=== PATIENT | female | born 1965 | race Caucasian/White ===

== ENCOUNTER 2016-06-27 20:44 | Inpatient (IN) | payer OTHER ==
[~2016-06-27] VITALS: Ht 167.6 cm; Wt 90.9 kg
[~2016-06-27 20:44] MED LIST: ACET-1311 PO; ALPR-411 PO; ASPEC81 PO; ATOR80TA PO; CLC100X PO; FAMO40TA6 PO; FERR325T51 PO; FLUO20CA35 PO; GABA-112 PO; HYDR-3785 PO; INSDGI SC; INSUINJ14 SC; LIRA18IN SQ; LISI2.5T5 PO; METO50TA17 PO; NRN100 PO; NXM/40 PO; POLY335025 PO
[2016-06-27] MEDS ORDERED: NVLG SQ (21:44)
[2016-06-27] MEDS ORDERED: TPRSR/25 PO (21:44)
[2016-06-27] MEDS ORDERED: INSDGIPEN SQ (21:44)
[2016-06-27] MEDS ORDERED: ASPI81TA28 PO (21:44)
[2016-06-27] MEDS ORDERED: PROCHLORPERAZINE 5 MG/ML 2 ML VIAL IV STA (21:52)
[2016-06-27] MEDS ORDERED: DiphenhydrAMINE HCL 50 MG/ML VIAL IV STA (21:52)
[2016-06-27] MEDS ORDERED: SODIUM CHLORIDE 0.9% 1000ML 1,000 ML IV STA (21:52)
[2016-06-27 22:04] LABS: URINE APPEARANCE CLEAR (CLEAR); URINE BILIRUBIN NEG (NEG); URINE COLOR YELLOW; URINE EPITHELIAL CELL AUTO >30 /lpf (0-5); URINE NITRITE NEG (NEG); URINE SPECIFIC GRAVITY 1.022 (1.000-1.030); UROBILINOGEN NEG (NEG)
[2016-06-27 22:06] LABS: MANUAL MICROSCOPIC REQUIRED? NO; REVIEW REQ? NO
[2016-06-27 22:43] LABS: BASO % 0.6 %; BASO ABS # 0.06 K/uL (0-0.2); COMPLETE YES; EOS % 0.4 %; HEMATOCRIT 38.3 % (37-47); IG% 0.2 %; LYMPH % 28.9 %; LYMPH ABS # 2.71 K/uL (1.2-3.4); MEAN CELL VOLUME 77.7 fL (80-100); MEAN CORPUSCULAR HEMOGLOBIN 25.8 pg (25-34); MEAN CORPUSCULAR HGB CONC 33.2 g/dl (32-36); MEAN PLATELET VOLUME 9.9 fL (7.4-10.4); MONO % 3.8 %; NEUT % 66.1 %; PLATELET COUNT 365 K/uL (130-400); RED BLOOD COUNT 4.93 M/uL (4.2-5.4); WHITE BLOOD COUNT 9.37 K/uL (4.8-10.8)
[2016-06-27 22:55] LABS: PROTHROMBIN TIME (PATIENT) 10.3 SECONDS (9.0-12.0)
--- NOTE | 2016-06-27 22:55 | DIAGNOSTIC IMAGING REPORT ---
HEAD CT NONCONTRAST CT DOSE: 537.48 mGy.cm HISTORY: Headache. TECHNIQUE: Multiaxial CT images of the head were performed without the use of intravenous contrast. Automated exposure control was utilized for this study. Comparison: Head CT 10/14/2014. Findings: The paranasal sinuses and mastoid air cells are clear. The calvarium and skull base are intact. The ventricles and sulci are within normal limits. There is no mass, hematoma, midline shift, or acute infarct. 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 Impression: No significant change compared to the prior study. No acute intracranial abnormality. Electronically signed by: Allan Rojas M.D. 06/27/2016 10:54 PM Dictated Date/Time: 06/27/2016 10:51 PM
[2016-06-27] MEDS ORDERED: FENTANYL CITRATE INJ 50 MCG/1 ML 2 ML VIAL IV STA ×2 (23:00→23:41)
[2016-06-27 23:01] LABS: ALT/SGPT 16 U/L (12-78); AST/SGOT 10 U/L (15-37); BLOOD UREA NITROGEN 16 mg/dl (7-18); BUN/CREATININE RATIO 11.6 (10-20); CALCIUM 8.8 mg/dl (8.5-10.1); CARBON DIOXIDE 26 mmol/L (21-32); CHLORIDE 105 mmol/L (98-107); GLUCOSE 178 mg/dl (70-99); POTASSIUM 3.4 mmol/L (3.5-5.1); SODIUM 142 mmol/L (136-145)
[2016-06-27 23:03] LABS: ALKALINE PHOSPHATASE 130 U/L (45-117)
--- NOTE | 2016-06-27 23:41 | EMERGENCY ROOM VISIT NOTE ---
History Report prepared by Virgil: Katalina Zamarripa Under the Supervision of: Dr. Moise Edward M.D. First contact with patient: 21:09 Chief Complaint: BACK PAIN Stated Complaint: 100.9 FEVER,BACKACHE,VOMITING,SICK History of Present Illness The patient is a 50 year old female who presents to the Emergency Room with complaints of persistent bilateral low back pain that started this afternoon. She rates her pain as a 7/10 and reports it radiates down both of her legs. The pain feels "sharp and constant" and has worsened throughout the day. She reports she was running errands this morning and denies any recent heavy lifting or traumatic injury. The patient states she has experienced kidney infections in the past which have caused similar back pain, but denies ever experiencing pain radiating down her legs before. She denies any history of chronic back pain or previous back surgery. She denies any saddle anesthesia or numbness or tingling in her legs. She denies any loss of bowel or bladder function. She notes she has been urinating more frequently. She denies any dysuria or hematuria. She has been experiencing a low grade fever around 100 degrees for the past day and complains of sinus congestion and the chills. She denies any recent sick contacts. She complains of a headache for the past 3 days. She states the headache is worsened by noise and exposure to light. She denies any history of migraine headaches. The patient also reports she became nauseous and started vomiting earlier today. She denies any chest pain or diarrhea. Source of History: patient Onset: this afternoon Position: back Symptom Intensity: 7/10 Quality: sharp ("sharp and constant") Timing: other (persistent) Associated Symptoms: + chills, + fevers, + headache, + nausea, + urinary symptoms (increased urinary frequency), + vomiting, No chest pain, No diarrhea, No numbness (numbness or tingling in bilateral legs) Review of Systems See HPI for pertinent positives & negatives. A total of 10 systems reviewed and were otherwise negative. Past Medical & Surgical Medical Problems: (1) Benign hypertension (2) Diabetes mellitus type 2 (3) Diabetic autonomic neuropathy associated with type 2 diabetes mellitus (4) Hyperlipidemia Surgical Problems: (1) Hx of BKA Family History Diabetes mellitus Hypertension Social History Smoking Status: Former Smoker Alcohol Use: none Drug Use: none, marijuana Marital Status: single Housing Status: lives with family Occupation Status: employed Current/Historical Medications Scheduled Aspirin (Aspirin Ec), 81 MG PO QPM Atorvastatin Calcium (Lipitor), 80 MG PO HS Docusate Sodium (Colace), 100 MG PO BID Esomeprazole Magnesium (Nexium), 40 MG PO BID Famotidine (Pepcid), 40 MG PO HS Insulin Aspart (Novolog), SQ TIDM Insulin Glargine (Lantus Solostar), 42 UNITS SQ QPM Liraglutide (Victoza), 1.8 MG SQ QAM Lisinopril (Lisinopril), 2.5 MG PO QAM Metoprolol Succinate (Metoprolol Succinate ER), 25 MG PO DAILY Polyethylene Glycol 3350 (Miralax), 17 GM PO DIRECTED Scheduled PRN Acetaminophen (Tylenol), 650 MG PO Q6 PRN for Pain Allergies Coded Allergies: Fluconazole (Unverified Allergy, Severe, HIVES, ITCHING, N/V SHORT OF BREATH, 12/06/14) Latex1 -Allergic Contact Dermititis (Verified Allergy, Unknown, RASH, PAINFUL TO THE TOUCH, 12/06/14) Penicillins (Verified Allergy, Unknown, HAD ROCEPHIN IN PAST, 12/06/14) RASH Hydromorphone (Verified Adverse Reaction, Intermediate, SEVERE HEADACHE, NAUSEA AND VOMITING, 12/06/14) SHORTNESS OF BREATH Morphine (Verified Adverse Reaction, Intermediate, SEVERE N/V, LUNDBERG. 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 PT OK W/ ONE TIME DOSES PRIOR TO PROCEDURES. Doxycycline (Verified Adverse Reaction, Mild, GI UPSET, 12/06/14) Physical Exam Vital Signs Date Time Temp Pulse Resp B/P Pulse Ox O2 Delivery O2 Flow Rate FiO2 06/27/16 23:05 103 06/27/16 23:03 94 Room Air 06/27/16 23:02 37.5 105 22 185/107 94 Room Air 06/27/16 20:54 37.9 122 20 172/98 96 Room Air Physical Exam Constitutional: Vital signs reviewed. Eyes: Pupils are equal round reactive to light. Conjunctiva are noninjected. ENT: Pharynx is clear without erythema or exudate. Mucous membranes are moist. Neck supple without meningeal signs. Respiratory: Clear to auscultation bilaterally. Breath sounds are equal bilaterally. Cardiovascular: Regular rate and rhythm. No rubs or gallops. GI: Soft, nondistended and nontender. Bowel sounds are present. Musculoskeletal: No midline tenderness to the thoracic or lumbosacral spine. No CVA tenderness. Left BKA. Integumentary: No cyanosis. Neurologic: The patient is awake and alert. Cranial nerves II-XII are intact. Motor is 5 out of 5 all extremities. Sensation is intact to light touch all extremities. Normal speech. No pronator drift. Psychiatric: Normal affect. Medical Decision & Procedures ER Provider Diagnostic Interpretation: X-rays interpreted by myself: Acute abdominal series x-rays per my interpretation shows no acute cardiopulmonary process. There is no evidence of free air or bowel obstruction. LS-spine x-rays demonstrate no acute fracture or dislocation. This CT scan was reviewed and interpreted by the radiologist and reviewed by myself. HEAD CT NONCONTRAST CT DOSE: 537.48 mGy.cm HISTORY: Headache. TECHNIQUE: Multiaxial CT images of the head were performed without the use of intravenous contrast. Automated exposure control was utilized for this study. Comparison: Head CT 10/14/2014. Findings: The paranasal sinuses and mastoid air cells are clear. The calvarium and skull base are intact. The ventricles and sulci are within normal limits. There is no mass, hematoma, midline shift, or acute infarct. 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 Impression: No significant change compared to the prior study. No acute intracranial abnormality. Electronically signed by: Allan Rojas M.D. 06/27/2016 10:54 PM Laboratory Results 06/27/16 22:10 Red Blood Count 4.93, Mean Corpuscular Volume 77.7, Mean Corpuscular Hemoglobin 25.8, Mean Corpuscular Hemoglobin Concent 33.2, Mean Platelet Volume 9.9, Neutrophils (%) (Auto) 66.1, Lymphocytes (%) (Auto) 28.9, Monocytes (%) (Auto) 3.8, Eosinophils (%) (Auto) 0.4, Basophils (%) (Auto) 0.6, Neutrophils # (Auto) 6.18, Lymphocytes # (Auto) 2.71, Monocytes # (Auto) 0.36, Eosinophils # (Auto) 0.04, Basophils # (Auto) 0.06 06/27/16 22:10 Test 06/27/16 00:00 06/27/16 22:10 Urine Color YELLOW Urine Appearance CLEAR (CLEAR) Urine pH 6.0 (4.5-7.5) Urine Specific Bentley 1.022 (1.000-1.030) Urine Protein NEG (NEG) Urine Glucose (UA) 1+ (NEG) Urine Ketones NEG (NEG) Urine Occult Blood NEG (NEG) Urine Nitrite NEG (NEG) Urine Bilirubin NEG (NEG) Urine Urobilinogen NEG (NEG) Urine Leukocyte Esterase TRACE (NEG) Urine WBC (Auto) 1-5 /hpf (0-5) Urine RBC (Auto) 0-4 /hpf (0-4) Urine Hyaline Casts (Auto) 1-5 /lpf (0-5) Urine Epithelial Cells (Auto) >30 /lpf (0-5) Urine Bacteria (Auto) NEG (NEG) Influenza Type A Antigen Neg for Influ A (NEG) Influenza Type B Antigen Neg for Influ B (NEG) White Blood Count 9.37 K/uL (4.8-10.8) Red Blood Count 4.93 M/uL (4.2-5.4) Hemoglobin 12.7 g/dL (12.0-16.0) Hematocrit 38.3 % (37-47) Mean Corpuscular Volume 77.7 fL (80-100) Mean Corpuscular Hemoglobin 25.8 pg (25-34) Mean Corpuscular Hemoglobin Concent 33.2 g/dl (32-36) Platelet Count 365 K/uL (130-400) Mean Platelet Volume 9.9 fL (7.4-10.4) Neutrophils (%) (Auto) 66.1 % Lymphocytes (%) (Auto) 28.9 % Monocytes (%) (Auto) 3.8 % Eosinophils (%) (Auto) 0.4 % Basophils (%) (Auto) 0.6 % Neutrophils # (Auto) 6.18 K/uL (1.4-6.5) Lymphocytes # (Auto) 2.71 K/uL (1.2-3.4) Monocytes # (Auto) 0.36 K/uL (0.11-0.59) Eosinophils # (Auto) 0.04 K/uL (0-0.5) Basophils # (Auto) 0.06 K/uL (0-0.2) RDW Standard Deviation 36.4 fL (36.4-46.3) RDW Coefficient of Variation 12.9 % (11.5-14.5) Immature Granulocyte % (Auto) 0.2 % Immature Granulocyte # (Auto) 0.02 K/uL (0.00-0.02) Prothrombin Time 10.3 SECONDS (9.0-12.0) Prothromb Time International Ratio 1.0 (0.9-1.1) Activated Partial Thromboplast Time 26.1 SECONDS (21.0-31.0) Partial Thromboplastin Ratio 1.0 Anion Gap 11.0 mmol/L (3-11) Est Creatinine Clear Calc Drug Dose 53.4 ml/min Estimated GFR () 49.9 Estimated GFR (Non- 43.1 BUN/Creatinine Ratio 11.6 (10-20) Calcium Level 8.8 mg/dl (8.5-10.1) Total Bilirubin 0.3 mg/dl (0.2-1) Direct Bilirubin < 0.1 mg/dl (0-0.2) Aspartate Amino Transf (AST/SGOT) 10 U/L (15-37) Alanine Aminotransferase (ALT/SGPT) 16 U/L (12-78) Alkaline Phosphatase 130 U/L (45-117) Total Protein 6.8 gm/dl (6.4-8.2) Albumin 3.6 gm/dl (3.4-5.0) Laboratory results as reviewed by me. Medications Administered Medications (Trade) Dose Ordered Sig/Nichol Route Start Time Stop Time Status Last Admin Dose Admin Sodium Chloride (Nss 1000ml) 1,000 ml @ 999 mls/hr Q1H1M STAT IV 06/27/16 21:52 06/27/16 22:52 DC 06/27/16 22:17 999 MLS/HR Prochlorperazine Edisylate (Compazine Inj) 10 mg NOW STAT IV 06/27/16 21:52 06/27/16 21:56 DC 06/27/16 22:17 10 MG Diphenhydramine HCl (Benadryl Inj) 50 mg NOW STAT IV 06/27/16 21:52 06/27/16 21:56 DC 06/27/16 22:17 50 MG Fentanyl Citrate (Fentanyl Inj) 50 mcg NOW STAT IV 06/27/16 23:00 06/27/16 23:01 DC 06/27/16 23:10 50 MCG ED Course 2144: The patient was evaluated in room A12. A complete history and physical exam was performed. 2151: Benadryl 50 mg IV, Compazine 10 mg IV, NSS 1000 ml @ 999 mls/hr IV. 2254: I reevaluated the patient. Her pain is not any better. I discussed her CT and blood test results. 2299: Fentanyl Citrate 50 mcg IV. Medical Decision This is a 50-year-old female who presents with fever, back pain and headache. Differential diagnoses considered include lumbar disc disease, radiculopathy, epidural abscess, influenza, pneumonia, sinusitis, migraine headache, meningitis. I did perform a limited focused review of portions of the patient' s old chart on the electronic medical record. The patient has had no recent pertinent visits to this hospital. I did evaluate the patient as noted above. Patient is presenting with low- grade temperatures as well as back pain and headache. The headache she has had for 3 days and describes as a frontal headache over her forehead and face. She has no meningeal signs. She does have chronic pain to her neck. She states that her lower back is what is bothering her the most. I did treat her with IV Compazine and Benadryl. She was also given normal saline IV. She was given fentanyl IV. I did order and review the patient's blood work as noted in the electronic medical record. Her white blood cell count is not elevated. Urinalysis unremarkable. Influenza swab is negative. I did order a CT of the head. I did review the images myself as well as the radiology report as described above. There is no evidence of intracranial hemorrhage. I did reassess patient. She still having pain in her back. Because of her fever was concerned about the possibility of epidural abscess. I did order an MRI of the lumbar spine. She is also given additional dose of fentanyl IV. The patient was signed out to Dr. Fraser. Impression Primary Impression: Low back pain Additional Impressions: Fever Headache Scribe Attestation The scribe's documentation has been prepared under my direct and personally reviewed by me in its entirety. I confirm that the note above accurately reflects all work, treatment, procedures, and medical decision making performed by me. Departure Information Dispostion Still a Patient Referrals Tammy Henao M.D. (PCP) Patient Instructions My [facility] Health Problem Qualifiers Primary Impression: Low back pain Chronicity: acute Back pain laterality: bilateral Sciatica presence: with sciatica Sciatica laterality: bilateral sciatica Qualified Codes: M54.42 - Lumbago with sciatica, left side; M54.41 - Lumbago with sciatica, right side Additional Impressions: Fever Fever type: unspecified Qualified Codes: R50.9 - Fever, unspecified Headache Headache type: unspecified Headache chronicity pattern: acute headache
[2016-06-28] MEDS ORDERED: FENTANYL CITRATE INJ 50 MCG/1 ML 2 ML VIAL IV ONE (01:00)
[2016-06-28] MEDS ORDERED: LORAZEPAM 2 MG/ML 1 ML VIAL IV STA (01:21)
[2016-06-28] MEDS ORDERED: FENTANYL CITRATE INJ 50 MCG/1 ML 2 ML VIAL IV STA (02:25)
[2016-06-28] MEDS ORDERED: OPTIRAY 320 IV PRN (02:30)
[2016-06-28 02:41] LABS: C-REACTIVE PROTEIN < 0.29 mg/dl (0-0.29)
[2016-06-28] MEDS ORDERED: TRAMADOL HCL 50 MG TAB PO PRN (03:30)
[2016-06-28] MEDS ORDERED: ACETAMINOPHEN 325 MG TAB PO PRN (03:30)
[2016-06-28] MEDS ORDERED: GLUCOSE 40% GEL 15 GM TUBE PO PRN (03:45)
[2016-06-28] MEDS ORDERED: GLUCAGON FOR INJ 1 MG VIAL SQ PRN (03:45)
[2016-06-28] MEDS ORDERED: GLUCOSE 10 TABS/TUBE PO PRN (03:45)
[2016-06-28] MEDS ORDERED: ONDANSETRON INJ 2 MG/ML 2 ML VIAL IV PRN (03:45)
[2016-06-28] MEDS ORDERED: DEXTROSE 50% 50 ML SYR IV PRN (03:45)
[2016-06-28 04:10] VITALS: BP 170/99; PULSE 100; TEMP 36.9; O2SAT 96; BMI 32.3
--- NOTE | 2016-06-28 04:13 | EMERGENCY ROOM VISIT NOTE ---
ED Visit Note First contact with patient: 00:02 Pleasant though clearly quite uncomfortable 50 yr old female with multiple med issues including DMII, PVD and previous left lower leg amputation. She arrived earlier in the day with complaints of generalized weakness, low back pain radiating bilateral legs, fevers, and not feeling well. Initially evaluated by Dr Edward with normal work-up but given history concern for epidural abscess thus an MRI lumbar spine had been ordered. Patient given multiple rounds fentanyl/ ativan and still unable to stay still for MRI and eventually refused to have it done further. Appreciated mechanic sound technician coming in from home to attempt this. Given intractable pain seems obvious patient will need to come in for further work-up and evaluation. I did order CRP which fortunately was negative thus the chance of this being epidural abscess quite low. May need anesthesia to be able to get MRI done. She is not septic. Does not have acute neuro deficits of right leg. Did add on PCR flu though without runny nose nor clear URI symptoms seems unlikely. Dr Liraino in to evaluate patient and ordered CT for further evaluation of back as well in addition to planned US studies.
--- NOTE | 2016-06-28 04:24 | History and Physical ---
History & Physical Date & Time of Service: Jun 28, 2016 at 04:08 Chief Complaint: 100.9 Fever,Backache,Vomiting,Sick Primary Care Physician: Tammy Henao M.D. History of Present Illness Source: patient, spouse The patient is a 50-year-old female who presents emergency department with severe bilateral low back pain radiating into left leg and increased phantom limb pain on the left. The patient reports that she had been walking during the day right leg became progressively more painful as pain extended from her low back through her gluteal area into her leg. She reports that when this is happening the past she had kidney infections causing that type of back pain but never had radiation into her legs. She denies any loss of bladder or bowel control. She reports having a temperature around 100F for the past 24-36 hours along with chills. She has not had any recent travel, she does not have any sick contacts. She does report a sinus type headache and congestion over the past 3 days, and reports that the headache is worsened by noise and exposure to light. At the discomfort in her back and legs progressed today she then began to develop nausea and vomiting as well. Past Medical/Surgical History Medical Problems: (1) Benign hypertension Status: Chronic (2) Diabetes mellitus type 2 Status: Chronic (3) Diabetic autonomic neuropathy associated with type 2 diabetes mellitus Status: Chronic (4) Hyperlipidemia Status: Chronic Surgical Problems: (1) Hx of BKA Status: Resolved Family History Diabetes mellitus Hypertension Social History Smoking Status: Former Smoker Alcohol Use: none Drug Use: none, marijuana Marital Status: single Housing status: lives with significant other Occupational Status: employed Immunizations History of Influenza Vaccine: Yes Influenza Vaccine Date: Jan 21, 2011 History of Tetanus Vaccine?: Yes Tetanus Immunization Date: Feb 21, 2010 History of Pneumococcal: Yes Pneumococcal Date: May 24, 2009 History of Hepatitis B Vaccine: No Multi-Drug Resistant Organisms History of MDRO: No Allergies Coded Allergies: Fluconazole (Unverified Allergy, Severe, HIVES, ITCHING, N/V SHORT OF BREATH, 12/06/14) Latex1 -Allergic Contact Dermititis (Verified Allergy, Unknown, RASH, PAINFUL TO THE TOUCH, 12/06/14) Penicillins (Verified Allergy, Unknown, HAD ROCEPHIN IN PAST, 12/06/14) RASH Hydromorphone (Verified Adverse Reaction, Intermediate, SEVERE HEADACHE, NAUSEA AND VOMITING, 12/06/14) SHORTNESS OF BREATH Morphine (Verified Adverse Reaction, Intermediate, SEVERE N/V, LUNDBERG. 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 PT OK W/ ONE TIME DOSES PRIOR TO PROCEDURES. Doxycycline (Verified Adverse Reaction, Mild, GI UPSET, 12/06/14) Home Medications Scheduled Aspirin (Aspirin Ec), 81 MG PO QPM Atorvastatin Calcium (Lipitor), 80 MG PO HS Docusate Sodium (Colace), 100 MG PO BID Esomeprazole Magnesium (Nexium), 40 MG PO BID Famotidine (Pepcid), 40 MG PO HS Insulin Aspart (Novolog), SQ TIDM Insulin Glargine (Lantus Solostar), 42 UNITS SQ QPM Liraglutide (Victoza), 1.8 MG SQ QAM Lisinopril (Lisinopril), 2.5 MG PO QAM Metoprolol Succinate (Metoprolol Succinate ER), 25 MG PO DAILY Polyethylene Glycol 3350 (Miralax), 17 GM PO DIRECTED Scheduled PRN Acetaminophen (Tylenol), 650 MG PO Q6 PRN for Pain Review of Systems The patient denies chest pain, palpitations, shortness of breath, cough, lower extremity swelling, vision change, hearing change, sore throat, abdominal pain, pelvic pain, blood in urine or stool, dysuria, urinary frequency or urgency, memory loss, rash, abnormal bruising or bleeding, focal or generalized weakness , numbness or tingling in arms , neck pain, night sweats, or allergy symptoms. The review of systems is otherwise negative other than for that already noted above, and at least 10 systems have been reviewed. Physical Exam Vital Signs Date Time Temp Pulse Resp B/P Pulse Ox O2 Delivery O2 Flow Rate FiO2 06/28/16 03:58 37.1 95 20 155/100 99 Room Air 06/28/16 01:59 37.0 110 18 171/97 94 Room Air 06/27/16 23:05 103 06/27/16 23:03 94 Room Air 06/27/16 23:02 37.5 105 22 185/107 94 Room Air 06/27/16 20:54 37.9 122 20 172/98 96 Room Air The patient is awake, well-developed and adequately nourished, alert and oriented 3, normocephalic and atraumatic, lying in bed and in no acute distress. HEENT--PERRL, EOMI, mucous membranes and oropharynx dry. Neck--supple, no JVD or bruits, thyroid normal, trachea midline, no adenopathy. Heart--normal S1 and S2, no extra beats, no murmurs, rubs or gallops. Lungs--clear bilaterally with good air movement, no respiratory distress, no accessory muscle use. Abdomen--normal bowel sounds and soft, nontender and nondistended, no hernias or masses, no organomegaly. Extremities--right lower extremity -no cyanosis, clubbing or edema. There is a diminished distal pulse on the right. 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 Dermatologic--normal skin turgor, normal color, warm and dry, no abnormal lymph nodes, no rash. Neurologic--cranial nerves II through XII grossly intact, motor and sensory examination normal. Rheumatologic--exam is limited due to pain. Psychiatric--normal affect. Diagnostics Laboratory Results Results Past 24 Hours Test 06/27/16 22:10 06/28/16 02:11 Range/Units White Blood Count 9.37 4.8-10.8 K/uL Red Blood Count 4.93 4.2-5.4 M/uL Hemoglobin 12.7 12.0-16.0 g/dL Hematocrit 38.3 37-47 % Mean Corpuscular Volume 77.7 80-100 fL Mean Corpuscular Hemoglobin 25.8 25-34 pg Mean Corpuscular Hemoglobin Concent 33.2 32-36 g/dl Platelet Count 365 130-400 K/uL Mean Platelet Volume 9.9 7.4-10.4 fL Neutrophils (%) (Auto) 66.1 % Lymphocytes (%) (Auto) 28.9 % Monocytes (%) (Auto) 3.8 % Eosinophils (%) (Auto) 0.4 % Basophils (%) (Auto) 0.6 % Neutrophils # (Auto) 6.18 1.4-6.5 K/uL Lymphocytes # (Auto) 2.71 1.2-3.4 K/uL Monocytes # (Auto) 0.36 0.11-0.59 K/uL Eosinophils # (Auto) 0.04 0-0.5 K/uL Basophils # (Auto) 0.06 0-0.2 K/uL RDW Standard Deviation 36.4 36.4-46.3 fL RDW Coefficient of Variation 12.9 11.5-14.5 % Immature Granulocyte % (Auto) 0.2 % Immature Granulocyte # (Auto) 0.02 0.00-0.02 K/uL Prothrombin Time 10.3 9.0-12.0 SECONDS Prothromb Time International Ratio 1.0 0.9-1.1 Activated Partial Thromboplast Time 26.1 21.0-31.0 SECONDS Partial Thromboplastin Ratio 1.0 Sodium Level 142 136-145 mmol/L Potassium Level 3.4 3.5-5.1 mmol/L Chloride Level 105 98-107 mmol/L Carbon Dioxide Level 26 21-32 mmol/L Anion Gap 11.0 3-11 mmol/L Blood Urea Nitrogen 16 7-18 mg/dl Creatinine 1.40 0.60-1.20 mg/dl Est Creatinine Clear Calc Drug Dose 53.4 ml/min Estimated GFR () 49.9 Estimated GFR (Non- 43.1 BUN/Creatinine Ratio 11.6 10-20 Random Glucose 178 70-99 mg/dl Calcium Level 8.8 8.5-10.1 mg/dl Total Bilirubin 0.3 0.2-1 mg/dl Direct Bilirubin < 0.1 0-0.2 mg/dl Aspartate Amino Transf (AST/SGOT) 10 15-37 U/L Alanine Aminotransferase (ALT/SGPT) 16 12-78 U/L Alkaline Phosphatase 130 45-117 U/L C-Reactive Protein < 0.29 0-0.29 mg/dl Total Protein 6.8 6.4-8.2 gm/dl Albumin 3.6 3.4-5.0 gm/dl Microbiology Results 06/27/16 Blood Culture, Received Pending 06/27/16 Blood Culture, Received Pending Diagnostic Radiology Patient Name: DAYRON ALMARAZ Unit Number: [id number] Dictated: 06/27/162250 Transcribed: 06/27/162250 [facility] Printed Date/Time: [~ rep prt dt]/[~ rep prt tm] [~ rep ct labl] - [~ rep ct ivnm] [facility] [place] [address] Dictated: 06/27/162250 Transcribed: 06/27/162250 [facility] Printed Date/Time: [~ rep prt dt]/[~ rep prt tm] [~ rep ct labl] - [~ rep ct ivnm] HEAD CT NONCONTRAST CT DOSE: 537.48 mGy.cm HISTORY: Headache. TECHNIQUE: Multiaxial CT images of the head were performed without the use of intravenous contrast. Automated exposure control was utilized for this study. Comparison: Head CT 10/14/2014. Findings: The paranasal sinuses and mastoid air cells are clear. The calvarium and skull base are intact. The ventricles and sulci are within normal limits. There is no mass, hematoma, midline shift, or acute infarct. 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 Impression: No significant change compared to the prior study. No acute intracranial abnormality. Electronically signed by: Allan Rojas M.D. 06/27/2016 10:54 PM Dictated Date/Time: 06/27/2016 10:51 PM The status of this report is Signed. Draft = Not yet reviewed or approved by Radiologist. Signed = Reviewed and approved by Radiologist. <AttendingPhy></AttendingPhy> <FamilyPhy>Tammy Henao M.D.</FamilyPhy > <PrimaryPhy>Tammy Henao M.D.</PrimaryPhy> <UnitNumber>[id number]</ UnitNumber> <VisitNumber>[id number]</VisitNumber> <PatientName>TINADAYRON</PatientName> <DateOfBirth>1965</DateOfBirth> <Location>[facility]</ Location> <ServiceDate>06/27/16</ServiceDate> <MNE>ESINDI</MNE> <OrderingPhy> Moise Edwrad MD</OrderingPhy> <OrderingPhyMNE>f rep ord dr gipson</OrderingPhyMNE > <DictatingPhyMNE>f rep dict dr gipson</DictatingPhyMNE> <CCListMNE>f rep ct mne</ CCListMNE> <AdmittingPhyMNE>f pt admit dr gipson</AdmittingPhyMNE> <AttendingPhyMNE >f pt attend dr gipson</AttendingPhyMNE> <ConsultingPhyMNE>f pt consult dr gipson</ConsultingPhyMNE> <FamilyPhyMNE>f pt fam dr gipson</FamilyPhyMNE> <OtherPhyMNE>f pt other dr gipson</OtherPhyMNE> < PrimaryPhyMNE>f pt prim care dr gipson</PrimaryPhyMNE> <ReferringPhyMNE>f pt referring dr gipson</ReferringPhyMNE> Impression Assessment and Plan Intractable low back pain with radiation to right lower extremity/increased left phantom limb pain/fever--the patient will be admitted to the medical floor. She's had negative x-rays this point. She was unable to get an MRI due to severe pain, but she was able to undergo CT scan of the lumbar spine which was negative for epidural hematoma or abscess, or any other acute process. We will order lower extremity arterial Dopplers to assess for possible peripheral arterial disease. She is unable to take morphine or Dilaudid. We'll gently give her Toradol IV being careful regarding her renal insufficiency. We'll also order a K pad. Diabetes mellitus--continue Lantus Solo*42 units subcutaneous every afternoon. Hold Victoza. Place on Accu-Cheks before meals and at bedtime with NovoLog coverage. Hypertension/renal insufficiency--continue metoprolol succinate ER 25 mg by mouth daily with hold parameters, hold lisinopril while patient is on Toradol, continue aspirin 81 mg by mouth every afternoon, hydrate with IV fluids, and repeat BMP and magnesium level in the a.m. GERD--change Nexium 40 mg by mouth twice a day to pantoprazole 40 mg by mouth twice a day, and continue famotidine 40 mg by mouth at bedtime. Hypercholesterolemia--continue atorvastatin 80 mg by mouth at bedtime. Level of Care Med/Surg Advanced Directives Existing Advance Directive: No Existing Living Will: No Existing Power of [place]: No Resuscitation Status FULL RESUSCITATION VTE Prophylaxis VTE Risk Assessment Done? Y/N: Yes Risk Level: Moderate Given or contraindicated: Treatment not indicated
[2016-06-28] MEDS: NSS + 20MEQ KCL 1000ML 1,000 ML IV SCH ×3 (04:45→23:59)
[2016-06-28] MEDS ORDERED: POLYETHYLENE (MIRALAX) 17 GM PACK PO PRN (04:45)
[2016-06-28] MEDS ORDERED: CEFTRIAXONE SOD INJ 1 GM in DEXTROSE 5% ADD-VANTAGE 50ML 50 ML IV SCH (04:45)
[2016-06-28] MEDS: METOPROLOL SUCC 25MG EXT REL TAB PO SCH (05:50)
--- NOTE | 2016-06-28 06:35 | DIAGNOSTIC IMAGING REPORT ---
L-SPINE MIN 4 VIEWS ROUTINE CLINICAL HISTORY: Low back pain, vomiting, fever. COMPARISON STUDY: No previous studies for comparison. FINDINGS: There is a mild lumbar levoscoliosis. There are scattered stool within the colon. There are no transition zones. There are surgical clips in the right upper quadrant consistent with a prior cholecystectomy. There are multilevel degenerative changes most pronounced at the L3-4 and L4-5 levels. No acute fractures or traumatic subluxations are visualized. No destructive lesions are evident. IMPRESSION: Moderate degenerative changes most pronounced at the L3-4 and L4-5 level. No acute fracture identified. Electronically signed by: Conrado Cha M.D. 06/28/2016 6:34 AM Dictated Date/Time: 06/28/2016 6:33 AM
--- NOTE | 2016-06-28 06:37 | DIAGNOSTIC IMAGING REPORT ---
ABDOMEN 2VIEW W/PA CHEST RTN CLINICAL HISTORY: Low back pain, vomiting, fever. COMPARISON STUDY: 09/13/2014 FINDINGS: The heart is mildly enlarged. There is no free intraperitoneal air. There is no focal pulmonary consolidation. There are postsurgical changes in cervical spine. Supine and decubitus views the abdomen reveal no abnormally dilated loops of large or small bowel. There are no transition zones indicate bowel obstruction. There is moderate stool in the colon. There are surgical clips noted within the right upper quadrant consistent with a prior cholecystectomy. IMPRESSION: No evidence of bowel obstruction. No evidence of free air. Electronically signed by: Conrado Cha M.D. 06/28/2016 6:35 AM Dictated Date/Time: 06/28/2016 6:34 AM
[2016-06-28 07:10] VITALS: BP 145/83; PULSE 87; TEMP 36.5; O2SAT 94
[2016-06-28 07:15] LABS: INFLUENZA A PCR Neg for Influ A (NEG); INFLUENZA B PCR Neg for Influ B (NEG)
--- NOTE | 2016-06-28 07:37 | DIAGNOSTIC IMAGING REPORT ---
CT LUMBAR SPINE WITH CT DOSE: 1206.50 mGy.cm CLINICAL HISTORY: Severe low back pain, fever, nausea, vomiting. TECHNIQUE: Helical images were acquired in the transverse plane. Axial and coronal reformatted images were acquired. Images were acquired following the administration of 92 cc of Optiray 320. COMPARISON STUDY: Conventional radiographic study dated 06/27/2016 FINDINGS: L1-2 level: There is a minor circumferential disc bulge. There is no significant spinal or foraminal stenosis. L2-3 level: There is a mild circumferential disc bulge. There is minor spinal canal narrowing. There is no significant foraminal narrowing. L3-4 level: There is minimal retrolisthesis of L3 on L4. There is a mild circumferential disc bulge. There is minor spinal stenosis. There is no significant foraminal narrowing. No 45 level: There is no evidence of significant disc bulge or focal herniation. There is no evidence of spinal or foraminal stenosis. There is facet joint arthropathy. L5-S1 level: There is no evidence of significant disc bulge or focal herniation. There is no evidence of spinal or foraminal stenosis. Visualized portions the kidneys are unremarkable. There is no hydronephrosis. There is a mild spinal curvature convex to the left. IMPRESSION: 1. Mild degenerative change. 2. No acute fractures identified. No destructive lesions are visualized. Electronically signed by: Conrado Cha M.D. 06/28/2016 7:36 AM Dictated Date/Time: 06/28/2016 7:32 AM
[2016-06-28] MEDS: LISINOPRIL 2.5 MG TAB PO SCH (09:09)
[2016-06-28] MEDS: PANTOprazole SOD 40 MG TAB PO SCH ×2 (09:09→20:06)
[2016-06-28] MEDS: DOCUSATE SODIUM 100 MG CAP PO SCH ×2 (09:10→20:06)
[2016-06-28] MEDS: INSULIN ASPART 100 UNITS/ML 3 ML PEN SC SCH ×4 (09:11→20:21)
[2016-06-28] MEDS: KETOROLAC TROMETHAMINE 30 MG/ML VIAL IV PRN ×2 (13:16→19:58)
[2016-06-28 14:58] VITALS: BP 142/87; PULSE 75; TEMP 36.7; O2SAT 96
[2016-06-28] MEDS ORDERED: NURSING VERBAL MED ORDER ONE (17:45)
--- NOTE | 2016-06-28 17:57 | Progress Note ---
Subjective Date of Service: Jun 28, 2016. Subjective Pt evaluation today including: conversation w/ patient, physical exam, chart review, lab review, review of studies, review of inpatient medication list Pain: lower back pain as well phantom limb pain Voiding: no voiding problems Pt is seen and examined by me. Pt still has some lower back pain, however improve from yesterday. Pt denies CP, SOB, Dizziness, palpitation and LOC.Pt denies any problem with urination and defection. Pt is lying comfortable in bed.Pt is waiting for arterial doppler, and denies fever, chills, rigors and sweats,. Problem List Medical Problems: (1) Fever Status: Acute (2) Headache Status: Acute (3) Low back pain Status: Acute Review of Systems Musculoskeletal: + see HPI All Other Systems: Reviewed and Negative Medications Medications (Trade) Dose Ordered Sig/Nichol Route Start Time Stop Time Status Last Admin Dose Admin Sodium Chloride (Nss 1000ml) 1,000 ml @ 999 mls/hr Q1H1M STAT IV 06/27/16 21:52 06/27/16 22:52 DC 06/27/16 22:17 999 MLS/HR Prochlorperazine Edisylate (Compazine Inj) 10 mg NOW STAT IV 06/27/16 21:52 06/27/16 21:56 DC 06/27/16 22:17 10 MG Diphenhydramine HCl (Benadryl Inj) 50 mg NOW STAT IV 06/27/16 21:52 06/27/16 21:56 DC 06/27/16 22:17 50 MG Fentanyl Citrate (Fentanyl Inj) 50 mcg NOW STAT IV 06/27/16 23:00 06/27/16 23:01 DC 06/27/16 23:10 50 MCG Fentanyl Citrate (Fentanyl Inj) 50 mcg NOW STAT IV 06/27/16 23:41 06/27/16 23:42 DC 06/27/16 23:52 50 MCG Fentanyl Citrate (Fentanyl Inj) 100 mcg NOW ONCE IV 06/28/16 01:00 06/28/16 01:01 DC 06/28/16 01:02 100 MCG Lorazepam (Ativan Inj) 1 mg NOW STAT IV 06/28/16 01:21 06/28/16 01:22 DC 06/28/16 01:36 1 MG Fentanyl Citrate (Fentanyl Inj) 100 mcg NOW STAT IV 06/28/16 02:25 06/28/16 02:26 DC 06/28/16 02:48 100 MCG Docusate Sodium (coLACE CAP) 100 mg BID PO 06/28/16 08:00 07/28/16 08:59 06/28/16 09:10 100 MG Lisinopril (Zestril Tab) 2.5 mg QAM PO 06/28/16 08:00 07/28/16 08:59 06/28/16 09:09 2.5 MG Metoprolol Succinate (Toprol Xl Tab) 25 mg DAILY PO 06/28/16 08:00 07/28/16 08:59 06/28/16 05:50 25 MG Pantoprazole Sodium (Protonix Tab) 40 mg BID PO 06/28/16 08:00 07/28/16 08:59 06/28/16 09:09 40 MG Insulin Aspart (novoLOG ASPART) SLIDING SCALE If C... ACHS SC 06/28/16 06:30 07/28/16 06:59 06/28/16 17:21 1 UNITS Ketorolac Tromethamine 30 mg 30 mg Q6H PRN IV 06/28/16 03:45 07/03/16 03:44 06/28/16 13:16 30 MG Ceftriaxone Sodium 1 gm/ Dextrose 50 ml @ 100 mls/hr DAILY@0600 IV 06/28/16 04:45 06/30/16 04:44 06/28/16 04:45 100 MLS/HR Potassium Chloride/Sodium Chloride (Nss + 20meq KCl 1000ml) 1,000 ml @ 100 mls/hr Q10H IV 06/28/16 04:45 07/28/16 04:44 06/28/16 13:10 100 MLS/HR Objective Vital Signs Date Time Temp Pulse Resp B/P Pulse Ox O2 Delivery O2 Flow Rate FiO2 06/28/16 14:58 36.7 75 18 142/87 96 Room Air 06/28/16 08:00 Room Air 06/28/16 07:10 36.5 87 18 145/83 94 Room Air 06/28/16 04:10 36.9 100 18 170/99 96 Room Air 06/28/16 04:10 36.9 100 18 170/99 96 Room Air 06/28/16 03:58 37.1 95 20 155/100 99 Room Air 06/28/16 01:59 37.0 110 18 171/97 94 Room Air 06/27/16 23:05 103 06/27/16 23:03 94 Room Air 06/27/16 23:02 37.5 105 22 185/107 94 Room Air 06/27/16 20:54 37.9 122 20 172/98 96 Room Air Physical Exam General Appearance: WD/WN, no apparent distress Eyes: normal inspection, EOMI Neck: supple, no carotid bruits Respiratory/Chest: chest non-tender, lungs clear, no respiratory distress, no accessory muscle use Cardiovascular: regular rate, rhythm, no edema, no murmur Abdomen: normal bowel sounds, non tender, soft Extremities: no pedal edema, no calf tenderness 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: 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 tested, no motor/sensory deficits, alert, normal mood/affect, oriented x 3 Skin: warm/dry, no rash Lymphatic: no adenopathy Laboratory Results Last 24 Hours Test 06/27/16 22:10 06/28/16 00:00 06/28/16 04:15 06/28/16 07:39 White Blood Count 9.37 K/uL Red Blood Count 4.93 M/uL Hemoglobin 12.7 g/dL Hematocrit 38.3 % Mean Corpuscular Volume 77.7 fL Mean Corpuscular Hemoglobin 25.8 pg Mean Corpuscular Hemoglobin Concent 33.2 g/dl Platelet Count 365 K/uL Mean Platelet Volume 9.9 fL Neutrophils (%) (Auto) 66.1 % Lymphocytes (%) (Auto) 28.9 % Monocytes (%) (Auto) 3.8 % Eosinophils (%) (Auto) 0.4 % Basophils (%) (Auto) 0.6 % Neutrophils # (Auto) 6.18 K/uL Lymphocytes # (Auto) 2.71 K/uL Monocytes # (Auto) 0.36 K/uL Eosinophils # (Auto) 0.04 K/uL Basophils # (Auto) 0.06 K/uL RDW Standard Deviation 36.4 fL RDW Coefficient of Variation 12.9 % Immature Granulocyte % (Auto) 0.2 % Immature Granulocyte # (Auto) 0.02 K/uL Prothrombin Time 10.3 SECONDS Prothromb Time International Ratio 1.0 Activated Partial Thromboplast Time 26.1 SECONDS Partial Thromboplastin Ratio 1.0 Sodium Level 142 mmol/L Potassium Level 3.4 mmol/L Chloride Level 105 mmol/L Carbon Dioxide Level 26 mmol/L Anion Gap 11.0 mmol/L Blood Urea Nitrogen 16 mg/dl Creatinine 1.40 mg/dl Est Creatinine Clear Calc Drug Dose 53.4 ml/min Estimated GFR () 49.9 Estimated GFR (Non- 43.1 BUN/Creatinine Ratio 11.6 Random Glucose 178 mg/dl Calcium Level 8.8 mg/dl Total Bilirubin 0.3 mg/dl Direct Bilirubin < 0.1 mg/dl Aspartate Amino Transf (AST/SGOT) 10 U/L Alanine Aminotransferase (ALT/SGPT) 16 U/L Alkaline Phosphatase 130 U/L C-Reactive Protein < 0.29 mg/dl Total Protein 6.8 gm/dl Albumin 3.6 gm/dl Influenza Type A (RT-PCR) Neg for Influ A Influenza Type A Antigen Neg for Influ A Influenza Type B Antigen Neg for Influ B Influenza Type B (RT-PCR) Neg for Influ B Bedside Glucose 236 mg/dl 293 mg/dl Test 06/28/16 11:27 06/28/16 16:37 Bedside Glucose 199 mg/dl 178 mg/dl Assessment and Plan 1) Low back pain bilateral sides with radiation to right lower extremity/ increased left phantom limb pain secondary to BKA - Pt had negative x-rays and CT scan of the lumbar spine which was negative for epidural hematoma or abscess, or any other acute process. - Pending lower extremity arterial Doppler to assess for possible peripheral arterial disease less likely. - Tramadol and Toradol IV being careful regarding her renal insufficiency. 2) Diabetes mellitus - Last A1c 10.8%, no well controlled, need to have a tighter control, outpatient , per primary care. - Continue Lantus Solo*42 units subcutaneous every afternoon. Hold Victoza for now.Continue Accu-Cheks before meals and at bedtime with NovoLog coverage. 3) Hypertension/renal insufficiency - Cr 1.4 with underlying CKD stage 3 possible secondary to DM. - Continue metoprolol succinate ER 25 mg by mouth daily with hold parameters, hold lisinopril while patient is on Toradol, continue aspirin 81 mg by mouth every afternoon, hydrate with IV fluids, and repeat BMP and magnesium level in the a.m. 4) GERD-- - pantoprazole 40 mg by mouth twice a day, and continue famotidine 40 mg by mouth at bedtime. 5) Fever w/o leukocytosis - afebrile w/o any shift in CBC, will D/C ceftriaxone. NO respirator symptoms and clinical exam is unremarkable. 6) Hypercholesterolemia--continue atorvastatin 80 mg by mouth at bedtime. 7) Headache - Resolved Continued [facility] stay due to: inadequate oral pain control, other (pending doppler) Discharge planning: home
--- NOTE | 2016-06-28 18:42 | DIAGNOSTIC IMAGING REPORT ---
ART DOP LOWER EXT BILAT CLINICAL HISTORY: Right-sided claudication. Left phantom limb pain. COMPARISON STUDY: No previous studies for comparison. FINDINGS: Brachial arm systolic pressures are 144 mmHg on the right and 145 mmHg on the left. The posterior tibial systolic pressure is 164 mmHg on the right. The right dorsalis pedis systolic pressure is 171 mmHg. The patient is status post a left [id number] amputation. No high velocity jets were visualized. On the right there is triphasic flow within the common femoral superficial femoral and popliteal arteries. There is triphasic flow within the posterior tibial peroneal and dorsalis pedis. On the left there is triphasic flow within the common femoral superficial femoral and popliteal arteries. The patient is status post a [id number] amputation on the left. IMPRESSION: No evidence of lower extremity arterial stenosis. Electronically signed by: Conrado Cha M.D. 06/28/2016 6:40 PM Dictated Date/Time: 06/28/2016 6:38 PM
[2016-06-28] MEDS: ATORVASTATIN 40 MG TAB PO SCH (20:06)
[2016-06-28] MEDS: ASPIRIN 81 MG ECTAB PO SCH (20:07)
[2016-06-28] MEDS: FAMOTIDINE 20 MG TAB PO SCH (20:07)
[2016-06-28] MEDS: INSULIN GLARGINE SOLOSTAR 100 UNITS/ML 3 ML PEN SQ SCH (20:12)
[2016-06-28] MEDS: TRAMADOL HCL 50 MG TAB PO PRN (21:27)
[2016-06-28 23:12] VITALS: BP 160/98; PULSE 70; TEMP 37.1; O2SAT 97
[2016-06-29] VITALS: O2SAT 97
[2016-06-29] MEDS: KETOROLAC TROMETHAMINE 30 MG/ML VIAL IV PRN ×3 (04:43→19:30)
[2016-06-29 06:26] LABS: HEMATOCRIT 33.4 % (37-47); MEAN CELL VOLUME 77.9 fL (80-100); MEAN CORPUSCULAR HEMOGLOBIN 26.1 pg (25-34); MEAN CORPUSCULAR HGB CONC 33.5 g/dl (32-36); MEAN PLATELET VOLUME 9.6 fL (7.4-10.4); PLATELET COUNT 292 K/uL (130-400); RED BLOOD COUNT 4.29 M/uL (4.2-5.4); WHITE BLOOD COUNT 7.66 K/uL (4.8-10.8)
[2016-06-29] MEDS: TRAMADOL HCL 50 MG TAB PO PRN ×2 (06:39→16:03)
[2016-06-29 06:55] LABS: BUN/CREATININE RATIO 13.5 (10-20); CALCIUM 8.3 mg/dl (8.5-10.1); CREATININE 1.1 mg/dl (0.60-1.20); MAGNESIUM 1.9 mg/dl (1.8-2.4); POTASSIUM 3.9 mmol/L (3.5-5.1)
[2016-06-29 07:10] LABS: BASO % 0.8 %; BASO ABS # 0.06 K/uL (0-0.2); COMPLETE YES; EOS % 1.7 %; IG% 0.3 %; LYMPH % 44.6 %; LYMPH ABS # 3.42 K/uL (1.2-3.4); MONO % 6.3 %; NEUT % 46.3 %
[2016-06-29 08:35] VITALS: BP 172/93; PULSE 71; TEMP 36.5; O2SAT 96
[2016-06-29] MEDS: DOCUSATE SODIUM 100 MG CAP PO SCH ×2 (08:42→20:19)
[2016-06-29] MEDS: METOPROLOL SUCC 25MG EXT REL TAB PO SCH (08:43)
[2016-06-29] MEDS: INSULIN ASPART 100 UNITS/ML 3 ML PEN SC SCH ×4 (08:44→20:20)
[2016-06-29] MEDS: LISINOPRIL 2.5 MG TAB PO SCH (08:45)
[2016-06-29] MEDS: PANTOprazole SOD 40 MG TAB PO SCH ×2 (08:45→20:19)
[2016-06-29] MEDS: NSS + 20MEQ KCL 1000ML 1,000 ML IV SCH ×2 (08:48→19:31)
--- NOTE | 2016-06-29 13:09 | Progress Note ---
Subjective Date of Service: Jun 29, 2016. Subjective Pt evaluation today including: conversation w/ patient, physical exam, chart review, review of studies, review of inpatient medication list Voiding: no voiding problems, no incontinence Pt is seen and examined by me, no new complains, lying in bed comfortably, back pain improved. Problem List Medical Problems: (1) Fever Status: Acute (2) Headache Status: Acute (3) Low back pain Status: Acute Review of Systems All Other Systems: Reviewed and Negative Medications Medications (Trade) Dose Ordered Sig/Nichol Route Start Time Stop Time Status Last Admin Dose Admin Aspirin (Ecotrin Tab) 81 mg QPM PO 06/28/16 21:00 07/28/16 20:59 06/28/16 20:07 81 MG Atorvastatin Calcium (Lipitor Tab) 80 mg HS PO 06/28/16 21:00 07/28/16 20:59 06/28/16 20:06 80 MG Famotidine (Pepcid Tab) 40 mg HS PO 06/28/16 21:00 07/28/16 20:59 06/28/16 20:07 40 MG Insulin Glargine (Lantus Solostar Pen) 42 unit QPM SQ 06/28/16 21:00 07/28/16 20:59 06/28/16 20:12 42 UNIT Objective Vital Signs Date Time Temp Pulse Resp B/P Pulse Ox O2 Delivery O2 Flow Rate FiO2 06/29/16 08:56 Room Air 06/29/16 08:35 36.5 71 16 172/93 96 06/29/16 00:00 97 Room Air 06/28/16 23:12 37.1 70 20 160/98 97 Room Air 06/28/16 14:58 36.7 75 18 142/87 96 Room Air Physical Exam General Appearance: no apparent distress Respiratory/Chest: chest non-tender, lungs clear, no respiratory distress Cardiovascular: regular rate, rhythm Abdomen: normal bowel sounds, soft Extremities: no pedal edema, no calf tenderness 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: alert, normal mood/affect, oriented x 3 Skin: no rash Comments: left BKA Laboratory Results Last 24 Hours Test 06/28/16 16:37 06/28/16 20:10 06/29/16 05:49 06/29/16 07:31 Bedside Glucose 178 mg/dl 381 mg/dl 98 mg/dl White Blood Count 7.66 K/uL Red Blood Count 4.29 M/uL Hemoglobin 11.2 g/dL Hematocrit 33.4 % Mean Corpuscular Volume 77.9 fL Mean Corpuscular Hemoglobin 26.1 pg Mean Corpuscular Hemoglobin Concent 33.5 g/dl Platelet Count 292 K/uL Mean Platelet Volume 9.6 fL Neutrophils (%) (Auto) 46.3 % Lymphocytes (%) (Auto) 44.6 % Monocytes (%) (Auto) 6.3 % Eosinophils (%) (Auto) 1.7 % Basophils (%) (Auto) 0.8 % Neutrophils # (Auto) 3.55 K/uL Lymphocytes # (Auto) 3.42 K/uL Monocytes # (Auto) 0.48 K/uL Eosinophils # (Auto) 0.13 K/uL Basophils # (Auto) 0.06 K/uL RDW Standard Deviation 36.3 fL RDW Coefficient of Variation 12.8 % Immature Granulocyte % (Auto) 0.3 % Immature Granulocyte # (Auto) 0.02 K/uL Sodium Level 144 mmol/L Potassium Level 3.9 mmol/L Chloride Level 109 mmol/L Carbon Dioxide Level 27 mmol/L Anion Gap 8.0 mmol/L Blood Urea Nitrogen 15 mg/dl Creatinine 1.10 mg/dl Est Creatinine Clear Calc Drug Dose 67.9 ml/min Estimated GFR () 66.8 Estimated GFR (Non- 57.7 BUN/Creatinine Ratio 13.5 Random Glucose 113 mg/dl Calcium Level 8.3 mg/dl Magnesium Level 1.9 mg/dl Test 06/29/16 11:26 Bedside Glucose 120 mg/dl Assessment and Plan 1) Low back pain bilateral sides with radiation to right lower extremity/ increased left phantom limb pain secondary to BKA - Pt had negative x-rays and CT scan of the lumbar spine which was negative for epidural hematoma or abscess, or any other acute process. - Arterial Doppler negative- will consult PT - Discharge tomorrow- - Out pt follow up with PCP. - Tramadol and Toradol IV 2) Diabetes mellitus - Last A1c 10.8%, no well controlled, need to have a tighter control, outpatient , per primary care. - Continue Lantus Solo*42 units subcutaneous every afternoon. Hold Victoza for now.Continue Accu-Cheks before meals and at bedtime with NovoLog coverage. 3) Hypertension/renal insufficiency - Cr 1.4 with underlying CKD stage 3 possible secondary to DM. - Continue metoprolol succinate ER 50 mg by mouth daily with hold parameters, resume lisinopril for elevated BP, continue aspirin 81 mg by mouth every afternoon, D/c IV fluids 4) GERD-- - pantoprazole 40 mg by mouth twice a day, and continue famotidine 40 mg by mouth at bedtime. 5) Fever w/o leukocytosis - afebrile w/o any shift in CBC, will D/C ceftriaxone. NO respirator symptoms and clinical exam is unremarkable. 6) Hypercholesterolemia--continue atorvastatin 80 mg by mouth at bedtime. 7) Headache - Resolved Continued [facility] stay due to: inadequate oral pain control, other (pending doppler) Discharge planning: home
[2016-06-29 15:29] VITALS: BP 142/86; PULSE 67; TEMP 36.7; O2SAT 97
[2016-06-29] MEDS: ZOLPIDEM TARTRATE 5 MG TAB PO PRN (20:19)
[2016-06-29] MEDS: ASPIRIN 81 MG ECTAB PO SCH (20:19)
[2016-06-29] MEDS: FAMOTIDINE 20 MG TAB PO SCH (20:19)
[2016-06-29] MEDS: ATORVASTATIN 40 MG TAB PO SCH (20:19)
[2016-06-29] MEDS: INSULIN GLARGINE SOLOSTAR 100 UNITS/ML 3 ML PEN SQ SCH (20:20)
[2016-06-29 23:29] VITALS: BP 143/81; PULSE 73; TEMP 36.5; O2SAT 97
[2016-06-30] MEDS: KETOROLAC TROMETHAMINE 30 MG/ML VIAL IV PRN ×2 (01:29→08:19)
[2016-06-30 06:24] LABS: BASO % 0.7 %; BASO ABS # 0.05 K/uL (0-0.2); COMPLETE YES; HEMATOCRIT 36.5 % (37-47); IG% 0.3 %; LYMPH % 34.6 %; LYMPH ABS # 2.56 K/uL (1.2-3.4); MEAN CELL VOLUME 79.5 fL (80-100); MEAN CORPUSCULAR HEMOGLOBIN 25.5 pg (25-34); MEAN CORPUSCULAR HGB CONC 32.1 g/dl (32-36); MEAN PLATELET VOLUME 10.1 fL (7.4-10.4); MONO % 5.7 %; NEUT % 56.7 %; PLATELET COUNT 296 K/uL (130-400); RED BLOOD COUNT 4.59 M/uL (4.2-5.4)
[2016-06-30] MEDS: NSS + 20MEQ KCL 1000ML 1,000 ML IV SCH (06:36)
[2016-06-30 06:48] LABS: BUN/CREATININE RATIO 11.5 (10-20); CREATININE 1.3 mg/dl (0.60-1.20); MAGNESIUM 1.7 mg/dl (1.8-2.4); POTASSIUM 3.7 mmol/L (3.5-5.1)
[2016-06-30 07:25] VITALS: BP 128/73; PULSE 64; TEMP 36.8; O2SAT 96
[2016-06-30] MEDS: LISINOPRIL 2.5 MG TAB PO SCH (08:20)
[2016-06-30] MEDS: DOCUSATE SODIUM 100 MG CAP PO SCH ×2 (08:20→20:16)
[2016-06-30] MEDS: PANTOprazole SOD 40 MG TAB PO SCH ×2 (08:20→20:17)
[2016-06-30] MEDS: METOPROLOL SUCC 50MG EXT REL TAB PO SCH (08:20)
[2016-06-30] MEDS: INSULIN ASPART 100 UNITS/ML 3 ML PEN SC SCH ×4 (08:27→20:03)
[2016-06-30] MEDS ORDERED: MAGNESIUM SULFATE 1GM / D5W 1 GM in PREMIXED IN D5W 100 ML IV ONE (08:40)
[2016-06-30] MEDS: TAPENTADOL HCL 50 MG TAB PO PRN ×4 (11:13→23:06)
--- NOTE | 2016-06-30 12:22 | Hospitalist Progress Note ---
Hospitalist Progress Note Date of Service Jun 30, 2016. (Franca Moyer PA-C) Subjective Complaining of feeling severely fatigued today. No energy. Denies any focal weakness. No further fever. Back pain slightly improved. Not radiating down her legs as badly. Denies any cough or sore throat. No chest pain or shortness of breath. No dizziness or lightheadedness. Additional Comments: 6 system review negative. Please see pertinent positives in the history of present illness section. (Franca Moyer PA-C) Objective Vital Signs Date Time Temp Pulse Resp B/P Pulse Ox O2 Delivery O2 Flow Rate FiO2 06/30/16 08:30 Room Air 06/30/16 07:25 36.8 64 18 128/73 96 06/30/16 00:10 Room Air 06/29/16 23:29 36.5 73 20 143/81 97 Room Air 06/29/16 20:10 Room Air 06/29/16 16:12 Room Air 06/29/16 15:29 36.7 67 16 142/86 97 (Franca Moyer PA-C) Physical Exam General Appearance: no apparent distress Eyes: EOMI ENT: + pertinent finding (no exudate noted in the mouth) Neck: no JVD Respiratory/Chest: lungs clear Cardiovascular: regular rate, rhythm Abdomen: normal bowel sounds, non tender, soft Extremities: non-tender, no pedal edema, + pertinent finding (left BKA noted. No point tenderness noted over the lumbar spinous processes or SI joint bilaterally.) 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: no motor/sensory deficits, oriented x 3 Skin: warm/dry (Franca Moyer PA-C) Laboratory Results 06/30/16 06:00 Red Blood Count 4.59, Mean Corpuscular Volume 79.5, Mean Corpuscular Hemoglobin 25.5, Mean Corpuscular Hemoglobin Concent 32.1, Mean Platelet Volume 10.1, Neutrophils (%) (Auto) 56.7, Lymphocytes (%) (Auto) 34.6, Monocytes (%) (Auto) 5.7, Eosinophils (%) (Auto) 2.0, Basophils (%) (Auto) 0.7, Neutrophils # (Auto) 4.20, Lymphocytes # (Auto) 2.56, Monocytes # (Auto) 0.42, Eosinophils # (Auto) 0.15, Basophils # (Auto) 0.05 06/30/16 06:00 Test 06/30/16 06:00 06/30/16 11:25 06/30/16 11:32 White Blood Count 7.40 K/uL (4.8-10.8) Red Blood Count 4.59 M/uL (4.2-5.4) Hemoglobin 11.7 g/dL (12.0-16.0) Hematocrit 36.5 % (37-47) Mean Corpuscular Volume 79.5 fL (80-100) Mean Corpuscular Hemoglobin 25.5 pg (25-34) Mean Corpuscular Hemoglobin Concent 32.1 g/dl (32-36) Platelet Count 296 K/uL (130-400) Mean Platelet Volume 10.1 fL (7.4-10.4) Neutrophils (%) (Auto) 56.7 % Lymphocytes (%) (Auto) 34.6 % Monocytes (%) (Auto) 5.7 % Eosinophils (%) (Auto) 2.0 % Basophils (%) (Auto) 0.7 % Neutrophils # (Auto) 4.20 K/uL (1.4-6.5) Lymphocytes # (Auto) 2.56 K/uL (1.2-3.4) Monocytes # (Auto) 0.42 K/uL (0.11-0.59) Eosinophils # (Auto) 0.15 K/uL (0-0.5) Basophils # (Auto) 0.05 K/uL (0-0.2) RDW Standard Deviation 37.2 fL (36.4-46.3) RDW Coefficient of Variation 12.8 % (11.5-14.5) Immature Granulocyte % (Auto) 0.3 % Immature Granulocyte # (Auto) 0.02 K/uL (0.00-0.02) Anion Gap 6.0 mmol/L (3-11) Est Creatinine Clear Calc Drug Dose 57.5 ml/min Estimated GFR () 54.6 Estimated GFR (Non- 47.1 BUN/Creatinine Ratio 11.5 (10-20) Calcium Level 8.0 mg/dl (8.5-10.1) Magnesium Level 1.7 mg/dl (1.8-2.4) Bedside Glucose 152 mg/dl (70-90) Last 24 Hours Test 06/29/16 16:39 06/29/16 20:17 06/30/16 04:35 06/30/16 05:04 Bedside Glucose 139 mg/dl 178 mg/dl 53 mg/dl 73 mg/dl Test 06/30/16 06:00 06/30/16 08:06 06/30/16 11:25 06/30/16 11:32 White Blood Count 7.40 K/uL Red Blood Count 4.59 M/uL Hemoglobin 11.7 g/dL Hematocrit 36.5 % Mean Corpuscular Volume 79.5 fL Mean Corpuscular Hemoglobin 25.5 pg Mean Corpuscular Hemoglobin Concent 32.1 g/dl Platelet Count 296 K/uL Mean Platelet Volume 10.1 fL Neutrophils (%) (Auto) 56.7 % Lymphocytes (%) (Auto) 34.6 % Monocytes (%) (Auto) 5.7 % Eosinophils (%) (Auto) 2.0 % Basophils (%) (Auto) 0.7 % Neutrophils # (Auto) 4.20 K/uL Lymphocytes # (Auto) 2.56 K/uL Monocytes # (Auto) 0.42 K/uL Eosinophils # (Auto) 0.15 K/uL Basophils # (Auto) 0.05 K/uL RDW Standard Deviation 37.2 fL RDW Coefficient of Variation 12.8 % Immature Granulocyte % (Auto) 0.3 % Immature Granulocyte # (Auto) 0.02 K/uL Sodium Level 144 mmol/L Potassium Level 3.7 mmol/L Chloride Level 109 mmol/L Carbon Dioxide Level 29 mmol/L Anion Gap 6.0 mmol/L Blood Urea Nitrogen 15 mg/dl Creatinine 1.30 mg/dl Est Creatinine Clear Calc Drug Dose 57.5 ml/min Estimated GFR () 54.6 Estimated GFR (Non- 47.1 BUN/Creatinine Ratio 11.5 Random Glucose 130 mg/dl Calcium Level 8.0 mg/dl Magnesium Level 1.7 mg/dl Bedside Glucose 123 mg/dl 152 mg/dl (Franca Moyer, PA-C) Assessment and Plan 50-year-old female admitted from the ER for fever and uncontrolled back pain. No further fever. Back pain slightly better. Back pain-likely musculoskeletal. Mild degenerative changes noted per CT -DC Toradol as it does not seem to be helping -DC Ultram -Begin Nucynta 50 mg po every 6 hours prn -Start Soma 350 mg po TID prn -Hold off on scheduled NSAIDs for a history of CKD -PT/OT Fever/fatigue-workup thus far has been negative. Flu, urine neg. No abscess on CT L spine -Check mono CKD stage III-Cr at baseline now. 1.3 -CASPER restarted. Tolerating -Avoid NSAIDS DM-poorly controlled. HgbA1C elevated at 10.8. According to the patient, this is actually improved. Patient did have a hypoglycemic episode last night. -Decrease Lantus slightly to 38 u daily -Home dose Victoza on hold -Carb ratio adjusted to 1:8 -Will follow BSGs today. Further adjustments pending -Counseled patient on the importance to check a 2 hour postprandial BSG Hypertension -Continue metoprolol XL 25 mg daily and lisinopril 2.5 mg daily Hyperlipidemia -Continue atorvastatin 80 mg daily GERD -Home regimen Nexium 40 mg BID and Pepcid 40 mg daily on hold -Pantoprazole 40 mg daily while in house DVT prophylaxis -AMBULATE -TEDS, SCDs CODE STATUS -LEVEL I FULL CODE Continued [facility] stay due to: ambulation difficulties (Franca Moyer, PABrandee) Attending Attestation: Pt seen/examined, chart reviewed, care plan d/w AKI Moyer. I agree w/ the yancey components of her documentation. Pt states her fever started at the same time as multiple episodes of emesis when at home. She then had diarrhea yesterday and again today. Feels achy and very tired with little appetite and some nausea. Back pain is improved. No recent travel or sick contacts. VSS no fever gen - looks depressed, nontoxic mouth - MMM heart - RRR, s1, s2 lungs - CTA b/l abd - soft, NT, ND, BS+, no HSM back - NONTENDER To palpation over the t-spine, l-spine, flanks/CVA regions or paraspinal areas ext - no edema right leg, BKA left leg CBC, BMP normal w/ Cr 1.3 A/P: 1. recent fever, emesis, now w/ diarrhea - most likely etiology viral gastroenteritis. check c. diff toxin & stool cx to be complete 2. recent back pain - improved. 2nd to DJD. L-spine results reviewed with no acute pathology. 3. BKA status, left leg 4. fatigue, acute - likely due to #1 above. PT, OT consults follow clinically Itzel WARREN MD (Andrea Warren MD)
[2016-06-30 15:29] VITALS: BP 148/87; PULSE 63; TEMP 36.8; O2SAT 98
[2016-06-30 16:20] VITALS: Ht 167.6 cm; Wt 90.9 kg
[2016-06-30] MEDS: ZOLPIDEM TARTRATE 5 MG TAB PO PRN (20:09)
[2016-06-30] MEDS: CARISOPRODOL 350 MG TAB PO PRN (20:15)
[2016-06-30] MEDS: ATORVASTATIN 40 MG TAB PO SCH (20:16)
[2016-06-30] MEDS: INSULIN GLARGINE SOLOSTAR 100 UNITS/ML 3 ML PEN SQ SCH (20:16)
[2016-06-30] MEDS: ASPIRIN 81 MG ECTAB PO SCH (20:49)
[2016-06-30 23:47] VITALS: BP 127/80; PULSE 74; TEMP 36.9; O2SAT 98
[2016-07-01] MEDS: KETOROLAC TROMETHAMINE 30 MG/ML VIAL IV PRN ×4 (02:00→23:14)
[2016-07-01] MEDS: TAPENTADOL HCL 50 MG TAB PO PRN (05:54)
[2016-07-01 05:59] VITALS: BP 161/95
[2016-07-01] MEDS ORDERED: LORAZEPAM 1 MG TAB ONE (06:31)
[2016-07-01] MEDS ORDERED: NURSING VERBAL MED ORDER ONE (06:45)
[2016-07-01 07:18] VITALS: BP_SYST 154; BP_SYST 156; BP_DIAS 88; BP_DIAS 90; PULSE 60; TEMP 36.4; O2SAT 98
[2016-07-01] MEDS: DOCUSATE SODIUM 100 MG CAP PO SCH ×2 (08:19→20:58)
[2016-07-01] MEDS: METOPROLOL SUCC 50MG EXT REL TAB PO SCH (08:19)
[2016-07-01] MEDS: PANTOprazole SOD 40 MG TAB PO SCH ×2 (08:19→20:58)
[2016-07-01] MEDS: LISINOPRIL 2.5 MG TAB PO SCH (08:19)
[2016-07-01] MEDS: INSULIN ASPART 100 UNITS/ML 3 ML PEN SC SCH ×4 (08:21→21:06)
[2016-07-01] MEDS: CARISOPRODOL 350 MG TAB PO PRN (08:25)
[2016-07-01 10:18] LABS: BUN/CREATININE RATIO 10.5 (10-20); CALCIUM 8.4 mg/dl (8.5-10.1); CREATININE 1.3 mg/dl (0.60-1.20); FERRITIN 55.1 ng/ml (8.0-388.0); MAGNESIUM 1.9 mg/dl (1.8-2.4); POTASSIUM 3.8 mmol/L (3.5-5.1)
[2016-07-01] MEDS ORDERED: DIAZEPAM 5MG TAB PO ONE (11:00)
[2016-07-01 11:35] LABS: BASO % 0.6 %; BASO ABS # 0.05 K/uL (0-0.2); COMPLETE YES; EOS % 1.4 %; IG% 0.2 %; LYMPH % 22.3 %; LYMPH ABS # 1.87 K/uL (1.2-3.4); MEAN CELL VOLUME 77.3 fL (80-100); MEAN CORPUSCULAR HEMOGLOBIN 25.6 pg (25-34); MEAN CORPUSCULAR HGB CONC 33.1 g/dl (32-36); MONO % 4.6 %; NEUT % 70.9 %; PLATELET COUNT 294 K/uL (130-400); RED BLOOD COUNT 4.53 M/uL (4.2-5.4); WHITE BLOOD COUNT 8.39 K/uL (4.8-10.8)
[2016-07-01] MEDS ORDERED: DULOXETINE (CYMBALTA) 30 MG CAP PO ONE (13:06)
[2016-07-01 15:14] VITALS: BP_SYST 146; BP_SYST 150; BP_DIAS 84; BP_DIAS 92; PULSE 67; TEMP 36.5; O2SAT 97
--- NOTE | 2016-07-01 18:07 | Progress Note ---
Subjective Date of Service: Jul 01, 2016. 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 by the [facility] and she is involved with this puts in work with this organization 7 days/week she wishes she could just walk away from it she denies depression, but when asked about depressive symptoms she responds yes to multiple symptoms including fatigue, loss of interest in activities, poor sleep, guilty feelings she has had suicidal thoughts in the past but then states "I would never hurt myself" and she never had a specific plan in mind has not been treated for depression/anxiety she also c/o phantom limb pain on the left took gabapentin before - did not help Problem List Medical Problems: (1) Fever Status: Acute (2) Headache Status: Acute (3) Low back pain Status: Acute Review of Systems Constitutional: No fever Respiratory: No cough, No dyspnea on exertion, No shortness of breath, No sputum, No wheezing Cardiac: No orthopnea Abdomen: No nausea, No pain, No vomiting Musculoskeletal: + see HPI Neurologic: + numbness/tingling Psychiatric: + anxiety, + depression symptoms, + insomnia, + see HPI Objective Vital Signs Date Time Temp Pulse Resp B/P Pulse Ox O2 Delivery O2 Flow Rate FiO2 07/01/16 15:14 36.5 67 20 150/92 97 Room Air 146/84 07/01/16 08:53 Room Air 07/01/16 07:18 36.4 60 20 156/88 98 Room Air 154/90 07/01/16 05:59 161/95 07/01/16 00:00 Room Air 06/30/16 23:47 36.9 74 16 127/80 98 Room Air 06/30/16 20:00 Room Air Physical Exam General Appearance: no apparent distress, + pertinent finding (crying, tearful ; anxious ) ENT: pharynx normal Neck: no JVD Respiratory/Chest: lungs clear, no respiratory distress, no accessory muscle use Cardiovascular: regular rate, rhythm, no gallop, no murmur Abdomen: normal bowel sounds, non tender, soft, no organomegaly Extremities: no pedal edema, + pertinent finding (left BKA) 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: alert, oriented x 3, + depressed affect Skin: no rash Laboratory Results Last 24 Hours Test 06/30/16 20:01 07/01/16 07:18 07/01/16 09:21 07/01/16 09:30 Bedside Glucose 81 mg/dl 97 mg/dl White Blood Count 8.39 K/uL Red Blood Count 4.53 M/uL Hemoglobin 11.6 g/dL Hematocrit 35.0 % Mean Corpuscular Volume 77.3 fL Mean Corpuscular Hemoglobin 25.6 pg Mean Corpuscular Hemoglobin Concent 33.1 g/dl Platelet Count 294 K/uL Mean Platelet Volume 10.0 fL Neutrophils (%) (Auto) 70.9 % Lymphocytes (%) (Auto) 22.3 % Monocytes (%) (Auto) 4.6 % Eosinophils (%) (Auto) 1.4 % Basophils (%) (Auto) 0.6 % Neutrophils # (Auto) 5.94 K/uL Lymphocytes # (Auto) 1.87 K/uL Monocytes # (Auto) 0.39 K/uL Eosinophils # (Auto) 0.12 K/uL Basophils # (Auto) 0.05 K/uL RDW Standard Deviation 35.7 fL RDW Coefficient of Variation 12.8 % Immature Granulocyte % (Auto) 0.2 % Immature Granulocyte # (Auto) 0.02 K/uL Erythrocyte Sedimentation Rate 20 mm/hr Sodium Level 141 mmol/L Potassium Level 3.8 mmol/L Chloride Level 107 mmol/L Carbon Dioxide Level 23 mmol/L Anion Gap 10.0 mmol/L Blood Urea Nitrogen 14 mg/dl Creatinine 1.30 mg/dl Est Creatinine Clear Calc Drug Dose 57.5 ml/min Estimated GFR () 54.6 Estimated GFR (Non- 47.1 BUN/Creatinine Ratio 10.5 Random Glucose 215 mg/dl Calcium Level 8.4 mg/dl Magnesium Level 1.9 mg/dl Iron Level 56 mcg/dl Total Iron Binding Capacity 293 mcg/dl Transferrin 248 mg/dl Transferrin % Saturation 16 % Ferritin 55.1 ng/ml Lipase 80 U/L Test 07/01/16 11:37 07/01/16 16:30 Bedside Glucose 232 mg/dl 178 mg/dl Assessment and Plan 50yo female: 1. recent gastroenteritis - resolved. C. diff neg; stool cx neg; likely viral etiology. tolerating diet. 2. back pain - improved with toradol prn, nucynta prn, soma prn. DJD. 3. depression with anxiety - severe. start cymbalta 30mg daily. this may help her phantom limb pain, too. patient is agreeable to psych consult. 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 supportive therapy given. klonipin 0.5mg prn. I asked staff to move her room to a location that has more light, more windows, etc. 4. fatigue - suspect 2nd to #3 and insomnia. 5. insomnia - trazodone 50mg HS. 6. BKA, left leg 7. HTN - mildly elevated; follow for now; cont CASPER and BB. 8. DVT proph - add lovenox 40mg daily. 9. mild microcytic anemia - Fe studies not c/w iron def. Could have thalaseemia. Outpatient Hb electrophoresis. 10. T2DM - control acceptable. PT, OT hopefully home soon Continued [facility] stay due to: other (depression ) Discharge planning: home
[2016-07-01] MEDS: CLONAZEPAM 0.5 MG TAB PO PRN (18:22)
[2016-07-01] MEDS ORDERED: ENOXAPARIN 40 MG/0.4 ML SYR SQ ONE (18:45)
[2016-07-01] MEDS: ASPIRIN 81 MG ECTAB PO SCH (20:58)
[2016-07-01] MEDS: ATORVASTATIN 40 MG TAB PO SCH (20:59)
[2016-07-01] MEDS ORDERED: TRAZODONE HCL 50 MG TAB PO SCH (21:00)
[2016-07-01] MEDS: INSULIN GLARGINE SOLOSTAR 100 UNITS/ML 3 ML PEN SQ SCH (21:06)
[2016-07-01 23:00] VITALS: BP 148/82; PULSE 77; TEMP 36.7; O2SAT 97
[2016-07-02 07:36] VITALS: BP 147/82; PULSE 73; TEMP 36.7; O2SAT 100
[2016-07-02] MEDS ORDERED: DULOXETINE (CYMBALTA) 30 MG CAP PO SCH (08:00)
[2016-07-02] MEDS ORDERED: ENOXAPARIN 40 MG/0.4 ML SYR SQ SCH (08:00)
[2016-07-02] MEDS: KETOROLAC TROMETHAMINE 30 MG/ML VIAL IV PRN (09:07)
[2016-07-02] MEDS: CLONAZEPAM 0.5 MG TAB PO PRN (09:10)
[2016-07-02] MEDS: METOPROLOL SUCC 50MG EXT REL TAB PO SCH (09:10)
[2016-07-02] MEDS: DOCUSATE SODIUM 100 MG CAP PO SCH (09:10)
[2016-07-02] MEDS: LISINOPRIL 2.5 MG TAB PO SCH (09:11)
[2016-07-02] MEDS: PANTOprazole SOD 40 MG TAB PO SCH (09:24)
[2016-07-02] MEDS: INSULIN ASPART 100 UNITS/ML 3 ML PEN SC SCH ×2 (09:27→12:29)
[2016-07-02] MEDS ORDERED: NCY50 PO (10:24)
[2016-07-02] MEDS ORDERED: DSY50 PO (10:24)
[2016-07-02] MEDS ORDERED: KLN5 PO ×2 (10:24→13:28)
[2016-07-02] MEDS ORDERED: CYM30 PO (10:24)
[2016-07-02] MEDS ORDERED: SM350 PO (10:24)
--- NOTE | 2016-07-02 10:30 | Discharge Instructions ---
Discharge Instructions Date of Service Jul 02, 2016. (Franca Moyer PA-C) Admission Reason for Admission: Fever, Low Back Pain (Franca Moyer PA-C) Discharge Discharge Diagnosis / Problem: back pain, acute on chronic renal failure, anxiety (Franca Moyer PA-C) Discharge Goals Goal(s): Improve function (Franca Moyer PA-C) Activity Recommendations Activity Limitations: resume your previous activity . (Franca Moyer PA-C) Instructions / Follow-Up Instructions / Follow-Up You had been treated in the hospital for back pain, dehydration and worsening kidney function. It is also thought that you have been increasingly anxious and somewhat depressed likely regarding stress at work The following changes/additions have been made to your medication list: -Cymbalta 30 mg daily -Klonopin 0.5 mg 3 times daily as needed for anxiety -Trazodone 50 mg at night for sleep -Nucynta 50 mg every 4 hours as needed for severe pain -Soma 350 mg every 8 hours as needed for back pain It is very important that you follow up with your primary care physician within one week Your blood sugars have also varied a lot in the hospital. Please check blood sugars diligently at home. It may be helpful to check your blood sugar before you eat and also 2 hours after you eat to see if you are getting adequate coverage Call your doctor or return to the emergency department if you have any of the following symptoms: -Fever of 101F or greater -Persistent vomiting - Persistent diarrhea -Lethargy -Chest pain -Shortness of breath -severe dizziness -weakness on one side of your body (Franca Moyer PA-C) Current Hospital Diet Patient's current hospital diet: Diabetes Type 2 Diet (Franca Moyer PA-C) Discharge Diet Recommended Diet: AHA Diet (Heart Healthy), Diabetes Type 2 Diet (Franca Moyer PA-C) Procedures Procedures Performed: CT head No significant change compared to the prior study. No acute intracranial abnormality. US leg No evidence of lower extremity arterial stenosis CT lumbar spine 1. Mild degenerative change. 2. No acute fractures identified. No destructive lesions are visualized. Abdomen xray No evidence of bowel obstruction. No evidence of free air. (Franca Moyer, ANJEL) Pending Studies Studies pending at discharge: no (Franca Moyer PA-C) Laboratory Results Test 07/02/16 07:15 Bedside Glucose 125 mg/dl (70-90) (Franca Moyer PA-C) Medical Emergencies . Who to Call and When: Medical Emergencies: If at any time you feel your situation is an emergency, please call 911 immediately. . (Franca Moyer PA-C) Non-Emergent Contact Non-Emergency issues call your: Primary Care Provider . (Franca Moyer PA-C) . "Provider Documentation" section prepared by Franca Moyer. (Franca Moyer PA-C) Attending Attestation: Pt seen/examined on day of discharge and I agree with these discharge instructions as outlined by AKI Moyer. Andrea Monteiro MD (Andrea Monteiro MD) VTE Core Measure Inpt VTE Proph given/why not?: Enoxaparin (Lovenox)SQ (Franca Moyer PA-C)
--- NOTE | 2016-07-02 10:46 | Discharge Summary ---
Discharge Summary Date of Service Jul 02, 2016. (Franca Moyer PA-C) Discharge Summary Admission Date: Jun 28, 2016 at 03:28 Discharge Date: Jul 02, 2016 Discharge Disposition: Home Principal Diagnosis: back pain, fever, acute on chronic kidney disease Problems/Secondary Diagnoses: Diabetes Anxiety Depression Hypertension Immunizations: Have You Had Influenza Vaccine: Yes Influenza Vaccine Date: Jan 21, 2011 History of Tetanus Vaccine?: Yes Tetanus Immunization Date: Feb 21, 2010 History of Pneumococcal: Yes Pneumococcal Date: May 24, 2009 History of Hepatitis B Vaccine: No Procedures: CT head No significant change compared to the prior study. No acute intracranial abnormality. US leg No evidence of lower extremity arterial stenosis CT lumbar spine 1. Mild degenerative change. 2. No acute fractures identified. No destructive lesions are visualized. Abdomen xray No evidence of bowel obstruction. No evidence of free air. 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 (Andrea Monteiro MD) Medication Reconciliation New Medications: Carisoprodol (Carisoprodol) 350 Mg Tab 350 MG PO TID PRN for back pain for 5 Days, #15 TAB Clonazepam (Clonazepam) 0.5 Mg Tab 0.5 MG PO Q8H PRN for anxiety for 20 Days, #60 TAB Duloxetine HCl (Duloxetine HCl) 30 Mg Cap 30 MG PO QAM for 30 Days, #30 CAP Tapentadol HCl (Nucynta) 50 Mg Tab 50 MG PO Q4H PRN for Pain for 3 Days, #18 TAB Trazodone HCl (Trazodone HCl) 50 Mg Tab 50 MG PO HS for 30 Days, #30 TAB Continued Medications: Acetaminophen (Tylenol) 325 Mg Tab 650 MG PO Q6 PRN for Pain, TAB Aspirin (Aspirin Ec) 81 Mg Tab 81 MG PO QPM Atorvastatin Calcium (Lipitor) 80 Mg Tab 80 MG PO HS, TAB Esomeprazole Magnesium (Nexium) 40 Mg Cap 40 MG PO BID, CAP Famotidine (Pepcid) 40 Mg Tab 40 MG PO HS, TAB Insulin Aspart (Novolog) 100 Units/Ml Inj SQ TIDM for SLIDING SCALE Insulin Glargine (Lantus Solostar) 100 Unit/Ml Inj 42 UNITS SQ QPM, #30 Liraglutide (Victoza) 18 Mg/3 Ml Inj 1.8 MG SQ QAM Lisinopril (Lisinopril) 2.5 Mg Tab 2.5 MG PO QAM, TAB Metoprolol Succinate (Metoprolol Succinate ER) 25 Mg Tabcr 25 MG PO DAILY, #30 Polyethylene Glycol 3350 (Miralax) 1 Pow Pow 17 GM PO DIRECTED Discontinued Medications: Docusate Sodium (Colace) 100 Mg Cap 100 MG PO BID, CAP Referrals At Discharge Follow up Referrals: Physician Referral - Within 1 Week with Tammy Henao M.D. Discharge Exam Patient feeling slightly better today. Fatigue is somewhat improved. Is not feeling overall as anxious. Back pain is also slightly better. Denies any leg pain. No fever or chills. No more diarrhea. Review of Systems: Constitutional: No fever Respiratory: No cough, No shortness of breath Cardiovascular: No chest pain Abdomen: No diarrhea, No nausea Physical Exam: General Appearance: no apparent distress Eyes: EOMI Neck: no JVD Respiratory/Chest: lungs clear Cardiovascular: regular rate, rhythm Abdomen / GI: normal bowel sounds, non tender, soft Extremities: no pedal edema (no pedal edema noted in the right lower extremity.), + pertinent finding (left BKA noted.) 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: no motor/sensory deficits, oriented x 3, + pertinent finding (not as depressed or anxious today.) Skin: warm/dry (Franca Moyer, PARenettaC) Hospital Course 50-year-old female admitted from the ER for fever, uncontrolled back pain and Acute on chronic kidney disease Back pain-likely musculoskeletal. Mild degenerative changes noted per CT -Initially treated with Toradol IV. -Begin Nucynta 50 mg po every 6 hours prn -Start Soma 350 mg po TID prn -Hold off on scheduled NSAIDs for a history of CKD Fever and fatigue-likely secondary to viral GI illness. The patient admitted to significant vomiting prior to arrival in the emergency department. She then developed diarrhea. -Symptoms resolved -Flu negative -Monitor negative -stool cx, c diff neg CKD stage III-secondary to dehydration. Baseline cr 1.3 -CASPER was initially held. -Patient was hydrated with IV fluids -Creatinine now back to baseline. CASPER restarted. DM-poorly controlled. HgbA1C elevated at 10.8. According to the patient, this is actually improved. Patient did have a hypoglycemic episode -Home dose of Lantus slightly decreased to 38 u daily, but then BSGs started to climb. Will d/c on home dose of 42 u HS -ISS -Home dose Victoza on hold-->Resume upon d/c -Counseled patient on the importance to check a 2 hour postprandial BSG -Needs close f/u and strict BSG monitoring at home Anxiety/Depression-I think this is significantly contributing to her symptoms -Psych consulted -Started Cymbalta 30 mg daily -Started Klonopin 0.5 mg every 8 hours as needed for anxiety -Started Trazodone 50 mg HS for sleep Hypertension -Continue metoprolol XL 25 mg daily and lisinopril 2.5 mg daily Hyperlipidemia -Continue atorvastatin 80 mg daily GERD -Home regimen Nexium 40 mg BID and Pepcid 40 mg daily on hold-->resume upon d/c -Pantoprazole 40 mg daily while in house DVT prophylaxis -Lovenox -TEDS, SCDs CODE STATUS -LEVEL I FULL CODE Total Time Spent: Greater than 30 minutes This includes examination of the patient, discharge planning, medication reconciliation, and communication with other providers. (Franca Moyer, PARenettaC) Attending discharge note & attestation: Pt seen/examined, chart reviewed, and care plan d/w AKI Moyer on day of discharge. I agree with the yancey components of her discharge documentation. 50yo female with uncontrolled T2DM and left BKA status who presented with back pain, posterior leg pain, copious vomiting, and low-grade fever. She was treated with pain medication, IVF, anti-emetics, and other supportive care measures. C. diff toxin and stool culture remained negative. She could not tolerate an MRI of the lumbar spine and thus she underwent a CT of the lumbar spine. This showed mild DJD of the lumbar spine. Her back pain improved throughout her stay with the above measures. Was seen by PT and cleared for home. Her fever, vomiting, nausea, and ultimately diarrhea (developed this while here ) was thought 2nd to a viral gastroenteritis. Prior to discharge she was tolerating a diabetic diet. During her stay she exhibited severe anxiety and showed signs of depression. She reported significant stressors outside of the hospital. She had NO suicidality while hospitalized. She was seen in consult by psychiatry who recommended she re-establish care at [facility] as she had utilized their services up until 1 year ago. She was begun on trazodone at for sleep, klonipin prn for anxiety, and cymbalta 30mg daily for her depression/anxiety. Hopefully the latter will also help her with phantom limb pain on the left side. The cymbalta can be titrated as an outpatient. She has been set up with an appt for [facility] in July 2016. Discharge exam - gen - NAD mouth - MMM neck - no JVD heart - RRR, s1, s2 lungs - CTA b/l abd - soft, NT, ND, BS+, no flank tenderness back - no significant paraspinal or spinal tenderness in the lumbar region ext - left BKA; right leg w/o edema, pulses right foot 2+ PCP follow-up within 1 week of discharge was also advised. Andrea Monteiro MD (Andrea Monteiro MD) Discharge Instructions Please refer to the electronic Patient Visit Report (Discharge Instructions) for additional information. (Franca Moyer PA-C) Follow-Up PCP 1 week (Franca Moyer PA-C) [facility]: August 07 at 9am (psychiatric services) (Andrea Monteiro MD) Additional Copies To Tammy Henao M.D. ; [facility]
[2016-07-02 11:36] VITALS: BP 147/82; PULSE 73; TEMP 36.7; O2SAT 100
--- NOTE | 2016-07-02 12:38 | Psychiatric Consultation ---
Consultation Identifying Data 50 yo woman admitted from the ER due to intractable low back pain and phantom limb pain. Consult requested to evaluate depression and anxiety Chief Complaint "I must have had a panic attach. ". History of Present Illness 50 yo woman with a BKA amputation, presented to the ER with extreme low back pain and phantom limb pain. Yesterday AM patient awoke with anxiety, crying. 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 She acknowledges that she has a long history of depression and anxiety, and allows things to build up inside of her, without dealing with them. She endorses chronically disturbed sleep from her racing worried thoughts that at one point had been well controlled on Ambien, but provider would no longer prescribe and sleep has been disturbed since. Appetite is OK, weight stable. Mood is depressed, and rates 6-7/10 with 10 being the best, today. She denies SI/HI, denies aud/vis hallucinations. She reports panic attacks, usually triggered by confinement or tight clothes and thinks the the tight wrist band and bandage on her arm contributed to her panic yesterday AM. she is no currently in any kind of psych treatment, having dropped out last year sometime, feeling frustrated that they wouldn't give her the meds that worked (Ambien). She cannot remember whate meds she has been on nor at what doses. PHQ-9= 13 Past Psychiatric History Current OP Treatment: no current treatment Prior OP Treatment: psychiatrist (Dr. Hu) Prior Psych Hospitalizations: other (none) Allergies Allergies: Coded Allergies: Fluconazole (Unverified Allergy, Severe, HIVES, ITCHING, N/V SHORT OF BREATH, 12/06/14) Latex1 -Allergic Contact Dermititis (Verified Allergy, Unknown, RASH, PAINFUL TO THE TOUCH, 12/06/14) Penicillins (Verified Allergy, Unknown, HAD ROCEPHIN IN PAST, 12/06/14) RASH Hydromorphone (Verified Adverse Reaction, Intermediate, SEVERE HEADACHE, NAUSEA AND VOMITING, 12/06/14) SHORTNESS OF BREATH Morphine (Verified Adverse Reaction, Intermediate, SEVERE N/V, LUNDBERG. 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 PT OK W/ ONE TIME DOSES PRIOR TO PROCEDURES. Doxycycline (Verified Adverse Reaction, Mild, GI UPSET, 12/06/14) Home Medications Scheduled Aspirin (Aspirin Ec), 81 MG PO QPM Atorvastatin Calcium (Lipitor), 80 MG PO HS Docusate Sodium (Colace), 100 MG PO BID Duloxetine HCl (Duloxetine HCl), 30 MG PO QAM Esomeprazole Magnesium (Nexium), 40 MG PO BID Famotidine (Pepcid), 40 MG PO HS Insulin Aspart (Novolog), SQ TIDM Insulin Glargine (Lantus Solostar), 42 UNITS SQ QPM Liraglutide (Victoza), 1.8 MG SQ QAM Lisinopril (Lisinopril), 2.5 MG PO QAM Metoprolol Succinate (Metoprolol Succinate ER), 25 MG PO DAILY Polyethylene Glycol 3350 (Miralax), 17 GM PO DIRECTED Trazodone HCl (Trazodone HCl), 50 MG PO HS Scheduled PRN Acetaminophen (Tylenol), 650 MG PO Q6 PRN for Pain Carisoprodol (Carisoprodol), 350 MG PO TID PRN for back pain Clonazepam (Clonazepam), 0.5 MG PO Q8H PRN for anxiety Tapentadol HCl (Nucynta), 50 MG PO Q4H PRN for Pain Family History Diabetes mellitus Hypertension Personal History Work History: is employed Relationship History: never (lives with SO) Review of Systems Eyes: denies: as stated in HPI, blurred vision, discharge, double vision, eye pain, itching, no symptoms, other, photophobia, redness, tearing, visual changes ENT: denies: dental pain, ear discharge, ear pain, epistaxis, gum swelling, loss of hearing, mouth pain, mouth swelling, nasal congestion, nasal pain, no symptoms reported, other, rhinorrhea, see HPI, sore throat, stidor, throat swelling, tinnitus Cardiovascular: denies: chest pain, chest pressure, chest tightness, diaphoresis, no symptoms reported, other, palpitations, see HPI, syncope Respiratory: denies: RAMEY, PND, cough, cyanosis, no symptoms reported, orthopnea , other, see HPI, short of breath, sputum production, stridor, wheezing Genitourinary - Female: denies: amenorrhea, dysmenorrhea, menorrhagia, metrorrhagia, no symptoms, other, , rash, see HPI, vaginal bleeding, vaginal discharge, vaginal itching, vulvadynia Musculoskeletal: back pain, other (BKA phantom limb pain) Integumentary: denies no symptoms reported, denies see HPI, denies change in color, denies change in hair/nails, denies dryness, denies lesions, denies lumps , denies rash, denies other Neurologic: denies: dizziness, focal weakness, general weakness, headache, lethargy, memory loss, no symptoms, numbness, other, paresthesias, pre-existing deficit, see HPI, seizure, tics, tingling, tremors, vertigo Endocrine: denies: as stated in HPI, cold intolerance, goiter, hair changes, heat intolerance, no symptoms, other, polydipsia, polyuria, skin changes Hematologic / Lymphatic: denies: abnormal clotting, adenopathy, anemia, as stated in HPI, easy bleeding, easy bruising, gums bleeding, no symptoms, other, petechiae Examination Vital Signs Vital Signs Past 12 Hours Date Time Temp Pulse Resp B/P Pulse Ox O2 Delivery O2 Flow Rate FiO2 07/02/16 11:36 36.7 73 20 100 Room Air 07/02/16 09:10 Room Air 07/02/16 07:36 36.7 73 20 147/82 100 Room Air Laboratory Results Last 24 Hours Test 07/01/16 16:30 07/01/16 20:26 07/02/16 07:15 07/02/16 11:39 Bedside Glucose 178 mg/dl 274 mg/dl 125 mg/dl 242 mg/dl Mental Examination During interview pt is: alert and oriented Appearance: appropriately dressed, appropriately groomed Eye contact is: fair Motor behavior is: no abnormal motor movements, other (seated on the bed brushing her hair) Speech: normal in rate, rhythm & volume Affect: flat Mood is: depressed, anxious Thought process: goal directed Thought content: reality based without delusions Suicidal thought are: denied Homicidal thoughts are: denied Hallucinations: denies auditory, denies visual Cognition: memory grossly intact, attention grossly intact, language grossly intact Intelligence estimated to be: average Insight: fair Judgement: fair Impression / Recommendations Impression The patient admits to a long history of depression and anxiety, in treatment until last year when she left [facility] feeling frustrated with her meds. Dr. Ceja has started her on Cymbalta 30 mg. daily here which is a good choice considering her mood, chronic anxiety and pain. She is agreeable to return to outpatient treatment and the liaison nurse will be facilitating an appointment. There are no acute symptoms at this time that would require inpatient care, and is safe to be discharge to OP care when medically cleared. Risk Factors Assessment : Yes /single/: No Access to guns: No (rifles in the home but she does't know where they are) Health problems: Yes Mental Health Diagnoses: Yes Substance use disorders: Yes (hx of alcohol abuse) Previous attempt: No Previous psychiatric stay: No Protective Factors Assessment : No (but living with SO) Responsible for young children: No Employed: Yes Recommendations (1) Major depressive disorder, recurrent, moderate Continue Cymbalta 30 mg. daily and refer back to [facility] for OP treatment. R/B/A were reviewed and accepted including the FDA warning for worsening mood and suicidality. (2) SUMIT (generalized anxiety disorder) As above. Also reviewed some thought stopping exercises with her for use when worrying at night.
[2016-10-05] MEDS ORDERED: NCY50 PO (10:35)
[2016-10-05] MEDS ORDERED: NRN300 PO (10:53)
== END 2016-07-02 14:00 | disposition home or self-care (01) | DRG 552 ==
LOC: ENRESERVDT → ENRESERVTM → C.EDB 20:44 → C.4E 06-28 03:28
PROVIDERS: ADMIT Hospitalist; ATTEND Internal Medicine
DX: M54.9 Dorsalgia, unspecified (principal); F33.1 Major depressive disorder, recurrent, moderate; A08.4 Viral intestinal infection, unspecified; I12.9 Hypertensive chronic kidney disease with stage 1 through stage 4 chronic kidney disease, or unspecified chronic kidney disease; N18.3 Chronic kidney disease, stage 3 (moderate); E11.21 Type 2 diabetes mellitus with diabetic nephropathy; E11.40 Type 2 diabetes mellitus with diabetic neuropathy, unspecified; Z87.891 Personal history of nicotine dependence; Z91.040 Latex allergy status; Z88.0 Allergy status to penicillin; K21.9 Gastro-esophageal reflux disease without esophagitis; E78.00 Pure hypercholesterolemia, unspecified; E86.0 Dehydration; F10.10 Alcohol abuse, uncomplicated; F41.1 Generalized anxiety disorder; Z89.512 Acquired absence of left leg below knee; G54.6 Phantom limb syndrome with pain; D50.9 Iron deficiency anemia, unspecified

== ENCOUNTER 2016-10-01 00:49 | Inpatient (IN) | payer OTHER ==
[~2016-10-01] VITALS: Ht 167.6 cm; Wt 86.7 kg
[2016-10-01] VITALS (8 sets, daily range): BP systolic 74–125; BP diastolic 47–67; PULSE 88–122; TEMP 37–37.3; O2SAT 96–100; BMI 31.0
[~2016-10-01 00:49] MED LIST changes: -ALPR-411 PO; -ASPEC81 PO; +ASPI81TA28 PO; -CLC100X PO; +CYM30 PO; +DSY50 PO; -FERR325T51 PO; -FLUO20CA35 PO; -GABA-112 PO; -HYDR-3785 PO; -INSDGI SC; +INSDGIPEN SQ; -INSUINJ14 SC; +KLN5 PO; -METO50TA17 PO; +NCY50 PO; -NRN100 PO; +NVLG SQ; +SM350 PO; +TPRSR/25 PO
[2016-10-01] MEDS ORDERED: SODIUM CHLORIDE 0.9% 1000ML 1,000 ML IV STA ×2 (01:30)
[2016-10-01] MEDS ORDERED: ONDANSETRON INJ 2 MG/ML 2 ML VIAL IV STA (01:30)
[2016-10-01 01:45] LABS: HEMATOCRIT 41.7 % (37-47); MEAN CELL VOLUME 81.9 fL (80-100); MEAN CORPUSCULAR HEMOGLOBIN 26.7 pg (25-34); MEAN CORPUSCULAR HGB CONC 32.6 g/dl (32-36); PLATELET COUNT 453 K/uL (130-400); RED BLOOD COUNT 5.09 M/uL (4.2-5.4); WHITE BLOOD COUNT 25.09 K/uL (4.8-10.8)
[2016-10-01 01:55] LABS: PARTIAL THROMBOPLASTIN RATIO 0.9; PROTHROMBIN TIME (PATIENT) 10.3 SECONDS (9.0-12.0)
[2016-10-01 02:06] LABS: ALLEN TEST POS (POS); ARTERIAL BLD GAS O2 SATURATION 94.8 % (90-95); ARTERIAL BLOOD GAS BASE EXCESS -16.2 mEq/L (-9-1.8); ARTERIAL BLOOD GAS HCO3 10 mmol/L (19-24); ARTERIAL BLOOD GAS PO2 89 mm/Hg (80-95); ARTERIAL BLOOD GAS pH 7.21 (7.35-7.45); O2 ADMINISTRATION RA
--- NOTE | 2016-10-01 02:11 | EMERGENCY ROOM VISIT NOTE ---
History Report prepared by Virgil: Hussein Booker Under the Supervision of: Dr. Lexi Bazan D.O. First contact with patient: 01:11 Chief Complaint: VOMITING Stated Complaint: VOMITING Nursing Triage Summary: Vomiting since 4am. Increased abdominal pain. Elevated BSG. History of Present Illness The patient is a 50 year old female who presents to the Emergency Room with complaints of persistent nausea starting around 4 am this morning. The patient was at baseline the day before. She has a history of diabetes and is on insulin. Her blood sugar level has been at baseline for the past few days but it was high this morning. She took NovoLog this morning. She had multiple vomiting episodes today. She reports epigastric abdominal pain. She denies diarrhea. She also complains of lightheadedness and weakness. She currently continues to complain of nausea. She has a history of being hospitalized for DKA. She did not have any recent ill contacts. The patient denies any drug or alcohol use. Source of History: patient Onset: around 4 am this morning Position: other (global) Quality: other (nausea) Timing: other (persistent) Associated Symptoms: + vomiting, + abdominal pain, + weakness Review of Systems See HPI for pertinent positives & negatives. A total of 10 systems reviewed and were otherwise negative. Past Medical & Surgical Medical Problems: (1) Benign hypertension (2) Diabetes mellitus type 2 (3) Diabetic autonomic neuropathy associated with type 2 diabetes mellitus (4) SUMIT (generalized anxiety disorder) (5) Hyperlipidemia (6) Major depressive disorder, recurrent, moderate Surgical Problems: (1) Hx of BKA Family History Diabetes mellitus Hypertension Social History Smoking Status: Current Every Day Smoker Alcohol Use: none Drug Use: none, marijuana Marital Status: single Housing Status: lives with family Occupation Status: employed Current/Historical Medications Scheduled Aspirin (Aspirin Ec), 81 MG PO QPM Atorvastatin Calcium (Lipitor), 80 MG PO HS Buspirone HCl (Buspirone HCl), 10 MG PO BID Docusate Sodium (Docusate Sodium), 100 MG PO BID Duloxetine HCl (Duloxetine HCl), 60 MG PO DAILY Esomeprazole Magnesium (Nexium), 40 MG PO BID Famotidine (Pepcid), 40 MG PO HS Insulin Aspart (Novolog), SQ TIDM Insulin Glargine (Lantus Solostar), 42 UNITS SQ QPM Liraglutide (Victoza), 1.8 MG SQ QAM Lisinopril (Lisinopril), 2.5 MG PO QAM Metoprolol Succinate (Metoprolol Succinate ER), 25 MG PO DAILY Trazodone HCl (Trazodone HCl), 50 MG PO HS Scheduled PRN Acetaminophen (Tylenol), 650 MG PO Q6 PRN for Pain Carisoprodol (Carisoprodol), 350 MG PO TID PRN for back pain Clonazepam (Clonazepam), 0.5 MG PO Q8H PRN for anxiety Polyethylene Glycol 3350 (Miralax), 17 GM PO DAILY PRN for Constipation Tapentadol HCl (Nucynta), 50 MG PO Q4H PRN for Pain Allergies Coded Allergies: Fluconazole (Unverified Allergy, Severe, HIVES, ITCHING, N/V SHORT OF BREATH, 10/01/16) Latex1 -Allergic Contact Dermititis (Verified Allergy, Unknown, RASH, PAINFUL TO THE TOUCH, 10/01/16) Penicillins (Verified Allergy, Unknown, HAD ROCEPHIN IN PAST, 10/01/16) RASH Hydromorphone (Verified Adverse Reaction, Intermediate, SEVERE HEADACHE, NAUSEA AND VOMITING, 10/01/16) SHORTNESS OF BREATH Morphine (Verified Adverse Reaction, Intermediate, SEVERE N/V, LUNDBERG. PT OK W / ONE TIME DOSES, 10/01/16) ADVERSE RXN W/ CONTINUOUS OSTOMY CARE NURSE. PT OK W/ ONE TIME DOSES PRIOR TO PROCEDURES. Doxycycline (Verified Adverse Reaction, Mild, GI UPSET, 10/01/16) Physical Exam Vital Signs Date Time Temp Pulse Resp B/P (MAP) Pulse Ox O2 Delivery O2 Flow Rate FiO2 10/01/16 03:47 130 18 122/61 96 Room Air 10/01/16 02:22 122 18 157/84 100 Room Air 10/01/16 01:39 Room Air 10/01/16 00:57 126 10/01/16 00:55 36.5 124 18 180/94 100 Room Air Physical Exam HEENT: Head - normocephalic and atraumatic Pupils are equal, round, and reactive to light. Extraocular eye muscles are intact, and sclera are anicteric. Nose - moist nasal mucosa without discharge. Mouth - extremely dry buccal mucosa. Extremely dry lips. Oropharynx is nonerythematous and there is no tonsillar exudate or edema noted. Neck: Supple; no JVD, nuchal rigidity, cervical lymphadenopathy. Heart: Tachycardic rate and regular rhythm. There is a normal S1 and S2 with no murmurs, clicks, or gallops appreciated. Lungs: Clear to auscultation bilaterally with no wheezes, rales, or rhonchi. Abdomen: Soft, epigastric abdominal pain to palpation, nondistended, with good bowel sounds. There are no palpable pulsatile masses or hepatosplenomegaly. There is no guarding, rigidity, or rebound noted. Extremities: No evidence of cyanosis, clubbing, or edema. She has a prosthesis on the left BKA Skin: Extremely dry with poor turgor and no rashes. Medical Decision & Procedures ER Provider Diagnostic Interpretation: X-ray results as stated below per interpretation by me: CHEST X-RAY No obvious pulmonary infiltrates, mild pulmonary congestion. Laboratory Results 10/01/16 00:31 Red Blood Count 5.09, Mean Corpuscular Volume 81.9, Mean Corpuscular Hemoglobin 26.7, Mean Corpuscular Hemoglobin Concent 32.6, Mean Platelet Volume 11.0, Neutrophils (%) (Auto) 81.9, Lymphocytes (%) (Auto) 13.3, Monocytes (%) (Auto) 3.6, Eosinophils (%) (Auto) 0.2, Basophils (%) (Auto) 0.4, Neutrophils # (Auto) 20.57, Lymphocytes # (Auto) 3.33, Monocytes # (Auto) 0.90, Eosinophils # (Auto) 0.04, Basophils # (Auto) 0.10 10/01/16 00:31 Test 10/01/16 00:31 10/01/16 01:50 10/01/16 01:59 10/01/16 02:20 White Blood Count 25.09 K/uL (4.8-10.8) Red Blood Count 5.09 M/uL (4.2-5.4) Hemoglobin 13.6 g/dL (12.0-16.0) Hematocrit 41.7 % (37-47) Mean Corpuscular Volume 81.9 fL (80-100) Mean Corpuscular Hemoglobin 26.7 pg (25-34) Mean Corpuscular Hemoglobin Concent 32.6 g/dl (32-36) Platelet Count 453 K/uL (130-400) Mean Platelet Volume 11.0 fL (7.4-10.4) Neutrophils (%) (Auto) 81.9 % Lymphocytes (%) (Auto) 13.3 % Monocytes (%) (Auto) 3.6 % Eosinophils (%) (Auto) 0.2 % Basophils (%) (Auto) 0.4 % Neutrophils # (Auto) 20.57 K/uL (1.4-6.5) Lymphocytes # (Auto) 3.33 K/uL (1.2-3.4) Monocytes # (Auto) 0.90 K/uL (0.11-0.59) Eosinophils # (Auto) 0.04 K/uL (0-0.5) Basophils # (Auto) 0.10 K/uL (0-0.2) RDW Standard Deviation 39.9 fL (36.4-46.3) RDW Coefficient of Variation 13.2 % (11.5-14.5) Immature Granulocyte % (Auto) 0.6 % Immature Granulocyte # (Auto) 0.15 K/uL (0.00-0.02) Echinocytes 1+ Prothrombin Time 10.3 SECONDS (9.0-12.0) Prothromb Time International Ratio 1.0 (0.9-1.1) Activated Partial Thromboplast Time 23.3 SECONDS (21.0-31.0) Partial Thromboplastin Ratio 0.9 Anion Gap 28.0 mmol/L (3-11) Est Creatinine Clear Calc Drug Dose 40.6 ml/min Estimated GFR () 36.9 Estimated GFR (Non- 31.8 BUN/Creatinine Ratio 15.8 (10-20) Calcium Level 9.4 mg/dl (8.5-10.1) Total Bilirubin 1.3 mg/dl (0.2-1) Aspartate Amino Transf (AST/SGOT) 11 U/L (15-37) Alanine Aminotransferase (ALT/SGPT) 26 U/L (12-78) Alkaline Phosphatase 162 U/L (45-117) Total Creatine Kinase 51 U/L (26-192) Creatine Kinase MB < 0.5 ng/ml (0.5-3.6) Creatine Kinase MB Ratio (0-3.0) Troponin I < 0.015 ng/ml (0-0.045) Total Protein 7.6 gm/dl (6.4-8.2) Albumin 4.0 gm/dl (3.4-5.0) Globulin 3.6 gm/dl (2.5-4.0) Albumin/Globulin Ratio 1.1 (0.9-2) Lipase 54 U/L (73-393) Beta-Hydroxybutyric Acid 82.37 mg/dL (0.2-2.81) Arterial Blood pH 7.21 (7.35-7.45) Arterial Blood Partial Pressure CO2 26 mmHg (35-46) Arterial Blood Partial Pressure O2 89 mm/Hg (80-95) Arterial Blood HCO3 10 mmol/L (19-24) Arterial Blood Oxygen Saturation 94.8 % (90-95) Arterial Blood Base Excess -16.2 mEq/L (-9-1.8) Arterial Blood Gas Delivery RA Pancho Test POS (POS) Bedside Lactic Acid Arterial 3.33 mmol/L (0.36-1.25) Urine Color YELLOW Urine Appearance CLEAR (CLEAR) Urine pH 5.0 (4.5-7.5) Urine Specific [place] 1.029 (1.000-1.030) Urine Protein NEG (NEG) Urine Glucose (UA) 3+ (NEG) Urine Ketones 4+ (NEG) Urine Occult Blood NEG (NEG) Urine Nitrite NEG (NEG) Urine Bilirubin NEG (NEG) Urine Urobilinogen NEG (NEG) Urine Leukocyte Esterase NEG (NEG) Urine WBC (Auto) 0 /hpf (0-5) Urine RBC (Auto) 0-4 /hpf (0-4) Urine Hyaline Casts (Auto) 0 /lpf (0-5) Urine Epithelial Cells (Auto) 10-20 /lpf (0-5) Urine Bacteria (Auto) NEG (NEG) Test 10/01/16 04:11 Lactic Acid Level 2.3 mmol/L (0.4-2.0) Laboratory results per my review. Medications Administered Medications (Trade) Dose Ordered Sig/Nichol Route Start Time Stop Time Status Last Admin Dose Admin Ondansetron HCl (Zofran Inj) 4 mg NOW STAT IV 10/01/16 01:30 10/01/16 01:32 DC 10/01/16 01:39 4 MG Sodium Chloride 1,000 ml @ 999 mls/hr Q1H1M STAT IV 10/01/16 01:30 6/14/17 02:30 DC 10/01/16 01:37 999 MLS/HR Sodium Chloride 1,000 ml @ 250 mls/hr Q4H STAT IV 10/01/16 01:30 10/01/16 05:29 DC 10/01/16 02:30 250 MLS/HR Miscellaneous (Insulin Protocol Dka Goal Range) 1 ea ONE ONCE N/A 10/01/16 02:15 10/01/16 02:21 DC 10/01/16 02:49 1 EA Insulin Human Regular 3.5 unit/ Syringe 3.5 ml @ 1 mls/min NOW STAT IV 10/01/16 02:22 10/01/16 02:25 DC 10/01/16 02:42 1 MLS/MIN Insulin Human Regular 250 units/ Sodium Chloride 252.5 ml @ 0 mls/hr NOW STAT IV 10/01/16 02:22 10/01/16 02:23 DC 10/01/16 02:41 3.3 MLS/HR Potassium Chloride/Sodium Chloride 1,000 ml @ 0 mls/hr Q0M STAT IV 10/01/16 02:38 10/01/16 02:40 DC 10/01/16 03:03 500 MLS/HR Fentanyl Citrate (Fentanyl Inj) 75 mcg NOW STAT IV 10/01/16 03:16 10/01/16 03:17 DC 10/01/16 03:38 75 MCG Procedure Sodium Chloride 1000 ml @ 250 mls/hr IV, Sodium Chloride 1000 ml @ 999 mls/hr IV , Zofran Inj 4 mg IV, Insulin Protocol DKA Goal Range 1 ea N/A, Insulin Human Regular 250 units/Sodium Chloride 252.2 ml @ 0 mlshr IV, Insulin Human Regular 3.5 unit/Syringe 3.5 ml @ 1 mls/min IV, Glucagon 1 mg SQ, Dextrose 50 ml IV, Glucose 1 tabs PO, Glucose PO, Potassium Chloride 1000 ml @ 0 mls/hr As Directed IV ECG Indication: nausea Rate (beats per minute): 125 Rhythm: sinus tachycardia Findings: no ectopy, other (No peaked T waves) ED Course 0111: Past medical records reviewed. The patient was evaluated in room B03B. A complete history and physical exam was performed. A septic protocol was performed. 0130: Sodium Chloride 1000 ml @ 250 mls/hr IV, Sodium Chloride 1000 ml @ 999 mls /hr IV, Zofran Inj 4 mg IV. A second IV lock was initiated. 0215: Insulin Protocol DKA Goal Range 1 ea N/A 0222: Insulin Human Regular 250 units/Sodium Chloride 252.2 ml @ 0 mlshr IV, Insulin Human Regular 3.5 unit/Syringe 3.5 ml @ 1 mls/min IV 0230: Glucagon 1 mg SQ, Dextrose 50 ml IV, Glucose 1 tabs PO, Glucose PO 0238:NSS with 20KCL at 500ml/hr. 0259: Upon reevaluation, I discussed findings and results with her. She verbalized agreement of the treatment plan. I spoke with Dr. Liriano of the [facility] Service. The patient will be evaluated for further management and care. 0316: Fentanyl Inj 75 mcg IV for her abdominal cramping Medical Decision The patient presents to the Emergency Room with complaints of nausea , severe thirst, abdominal cramping, and frequent urination.. Differential diagnosis includes but is not limited to DKA, sepsis, hyperglycemia, dehydration, pancreatitis, electrolyte abnormalities. Labs revealed: Sodium 133, BUN 28, creatinine 1.8, blood sugar of 645, BHA of 82.37, total bilirubin-1.3 Arterial blood gas revealed a pH of 7.21, PCO2 of 26, PO2 of 89, and bicarbonate of 10. Coagulation studies were normal. Urinalysis revealed 4+ ketones. I attest that I have personally reviewed the patient's current medication list. Patient was found to have an elevated blood pressure and was referred to the hospitalist for recheck and further treatment. The patient has a history of insulin-dependent diabetes. It seems that she has moderate to severe DKA at this time. Her vital signs did remain stable. She was receiving IV crystalloid therapy with some potassium replacement and was started on insulin drip. Consults Time Called: [phone] Consulting Physician[facility] Returned Call: [phone] Liriano of the [facility]. Impression Primary Impression: DKA (diabetic ketoacidoses) Critical Care I have personally spent greater than 90 minutes of critical care time in the direct management of this patient. This includes bedside care, interpretation of diagnostic studies, and testing, discussion with consultants, patient, and other required patient management activities. This 90 minutes is in excess of all separately billable procedures. Scribe Attestation The scribe's documentation has been prepared under my direction and personally reviewed by me in its entirety. I confirm that the note above accurately reflects all work, treatment, procedures, and medical decision making performed by me. Departure Information Dispostion Being Evaluated By Hospitalist Referrals Tammy Henao M.D. (PCP) Patient Instructions My [facility]
[2016-10-01 02:12] LABS: BASO % 0.4 %; COMPLETE YES; ECHINOCYTES 1+; EOS % 0.2 %; IG% 0.6 %; LYMPH % 13.3 %; LYMPH ABS # 3.33 K/uL (1.2-3.4); MONO % 3.6 %; NEUT % 81.9 %
[2016-10-01] MEDS ORDERED: DKA GOAL RANGE 150-250 mg/dl 1 EA ONE ×2 (02:15→04:30)
[2016-10-01] MEDS ORDERED: INSULIN REGULAR 250 UNITS in SODIUM CHLORIDE 0.9% 250ML 250 ML IV STA (02:22)
[2016-10-01] MEDS ORDERED: INSULIN HUMAN REGULAR IV BOLUS 3.5 UNIT in SYRINGE 0 ML IV STA (02:22)
[2016-10-01 02:26] LABS: ALB/GLOB RATIO 1.1 (0.9-2); ALKALINE PHOSPHATASE 162 U/L (45-117); ALT/SGPT 26 U/L (12-78); AST/SGOT 11 U/L (15-37); BLOOD UREA NITROGEN 28 mg/dl (7-18); BUN/CREATININE RATIO 15.8 (10-20); CALCIUM 9.4 mg/dl (8.5-10.1); CARBON DIOXIDE 13 mmol/L (21-32); CHLORIDE 92 mmol/L (98-107); GLUCOSE 645 mg/dl (70-99); POTASSIUM 4.2 mmol/L (3.5-5.1); SODIUM 133 mmol/L (136-145)
[2016-10-01] MEDS ORDERED: DEXTROSE 50% 50 ML SYR IV PRN ×2 (02:30→05:00)
[2016-10-01] MEDS ORDERED: GLUCOSE 10 TABS/TUBE PO PRN ×2 (02:30→05:00)
[2016-10-01] MEDS ORDERED: GLUCAGON FOR INJ 1 MG VIAL SQ PRN ×2 (02:30→05:00)
[2016-10-01] MEDS ORDERED: GLUCOSE 40% GEL 15 GM TUBE PO PRN ×2 (02:30→05:00)
[2016-10-01 02:33] LABS: URINE APPEARANCE CLEAR (CLEAR); URINE BILIRUBIN NEG (NEG); URINE COLOR YELLOW; URINE NITRITE NEG (NEG); URINE SPECIFIC GRAVITY 1.029 (1.000-1.030); UROBILINOGEN NEG (NEG); ZZUR CULT IF INDIC CLEAN CATCH NO
[2016-10-01 02:36] LABS: MANUAL MICROSCOPIC REQUIRED? NO; REVIEW REQ? NO
[2016-10-01] MEDS ORDERED: NSS + 20MEQ KCL 1000ML 1,000 ML IV STA (02:38)
[2016-10-01] MEDS ORDERED: CYM60 PO (02:57)
[2016-10-01] MEDS ORDERED: BSP/10 PO (02:57)
[2016-10-01] MEDS ORDERED: CLC100 PO (02:58)
[2016-10-01 03:06] LABS: BETA-HYDROXYBUTYRATE 82.37 mg/dL (0.2-2.81)
[2016-10-01] MEDS ORDERED: FENTANYL CITRATE INJ 50 MCG/1 ML 2 ML VIAL IV STA (03:16)
[2016-10-01] MEDS ORDERED: TAMSULOSIN HCL 0.4 MG CAP PO STA (03:36)
[2016-10-01] MEDS: INSULIN REGULAR 250 UNITS in SODIUM CHLORIDE 0.9% 250ML 250 ML IV SCH ×3 (03:45→11:42)
[2016-10-01] MEDS ORDERED: INSULIN IV INFUSION PROTOCOL STA (04:23)
[2016-10-01] MEDS ORDERED: PENDING NSS+20mEq KCL IVF SCH (04:30)
[2016-10-01] MEDS ORDERED: DC ALL PREVIOUSLY ORDERED DIABETES MEDS ONE (04:30)
[2016-10-01] MEDS ORDERED: POLYETHYLENE (MIRALAX) 17 GM PACK PO PRN (04:30)
[2016-10-01] MEDS ORDERED: MODERATE STRESS LEVEL ONE (04:30)
[2016-10-01] MEDS ORDERED: PENDING D5NS+20mEq KCL IVF SCH (04:30)
[2016-10-01] MEDS ORDERED: ACETAMINOPHEN 325 MG TAB PO PRN (04:30)
[2016-10-01] MEDS ORDERED: MoRPHine SULFATE 2 MG/ML CARP IV STA (06:16)
--- NOTE | 2016-10-01 06:16 | History and Physical ---
History & Physical Date & Time of Service: Oct 01, 2016 at 06:16 Chief Complaint: DKA Primary Care Physician: Tammy Henao M.D. History of Present Illness Source: patient 50-year-old female with past medical history of diabetes mellitus, hypertension , hyperlipidemia, and a generalized anxiety disorder, status post left BKA presented to the ER with complaints of persistent nausea and vomiting started yesterday. She complains of several episodes of vomiting associated with epigastric abdominal pain. Denies any fevers or chills but felt hot. Denies any dysuria, frequency, hematuria. Also complains of body aches and feeling weak Past Medical/Surgical History Medical Problems: (1) Benign hypertension Status: Chronic (2) Diabetes mellitus type 2 Status: Chronic (3) Diabetic autonomic neuropathy associated with type 2 diabetes mellitus Status: Chronic (4) SUMIT (generalized anxiety disorder) Status: Chronic (5) Hyperlipidemia Status: Chronic (6) Major depressive disorder, recurrent, moderate Status: Chronic Surgical Problems: (1) Hx of BKA Status: Resolved Family History Diabetes mellitus Hypertension Social History Smoking Status: Current Every Day Smoker Drug Use: none, marijuana Marital Status: single Housing status: lives with significant other Occupational Status: employed Immunizations History of Influenza Vaccine: Yes Influenza Vaccine Date: Jan 21, 2011 History of Tetanus Vaccine?: Yes Tetanus Immunization Date: Feb 21, 2010 History of Pneumococcal: Yes Pneumococcal Date: May 24, 2009 History of Hepatitis B Vaccine: No Multi-Drug Resistant Organisms History of MDRO: No Allergies Coded Allergies: Fluconazole (Unverified Allergy, Severe, HIVES, ITCHING, N/V SHORT OF BREATH, 10/01/16) Latex1 -Allergic Contact Dermititis (Verified Allergy, Unknown, RASH, PAINFUL TO THE TOUCH, 10/01/16) Penicillins (Verified Allergy, Unknown, HAD ROCEPHIN IN PAST, 10/01/16) RASH Hydromorphone (Verified Adverse Reaction, Intermediate, SEVERE HEADACHE, NAUSEA AND VOMITING, 10/01/16) SHORTNESS OF BREATH Morphine (Verified Adverse Reaction, Intermediate, SEVERE N/V, LUNDBERG. PT OK W / ONE TIME DOSES, 10/01/16) ADVERSE RXN W/ CONTINUOUS PHOTOENGRAVER APPRENTICE. PT OK W/ ONE TIME DOSES PRIOR TO PROCEDURES. Doxycycline (Verified Adverse Reaction, Mild, GI UPSET, 10/01/16) Home Medications Scheduled Aspirin (Aspirin Ec), 81 MG PO QPM Atorvastatin Calcium (Lipitor), 80 MG PO HS Buspirone HCl (Buspirone HCl), 10 MG PO BID Docusate Sodium (Docusate Sodium), 100 MG PO BID Duloxetine HCl (Duloxetine HCl), 60 MG PO DAILY Esomeprazole Magnesium (Nexium), 40 MG PO BID Famotidine (Pepcid), 40 MG PO HS Gabapentin (Gabapentin), 300 MG PO TID Insulin Aspart (Novolog), SQ TIDM Insulin Glargine (Lantus Solostar), 42 UNITS SQ QPM Liraglutide (Victoza), 1.8 MG SQ QAM Lisinopril (Lisinopril), 2.5 MG PO QAM Metoprolol Succinate (Metoprolol Succinate ER), 25 MG PO DAILY Trazodone HCl (Trazodone HCl), 50 MG PO HS Scheduled PRN Acetaminophen (Tylenol), 650 MG PO Q6 PRN for Pain Carisoprodol (Carisoprodol), 350 MG PO TID PRN for back pain Clonazepam (Clonazepam), 0.5 MG PO Q8H PRN for anxiety Polyethylene Glycol 3350 (Miralax), 17 GM PO DAILY PRN for Constipation Tapentadol HCl (Nucynta), 100 MG PO Q4H PRN for Pain Review of Systems Constitutional: No fever, No chills Eyes: No worsening of vision ENT: No hearing loss Respiratory: No cough, No sputum Cardiovascular: No chest pain Abdomen: + pain (epigastric), + nausea, + vomiting Genitourinary - Female: No dysuria, No urinary frequency, No urinary urgency Neurologic: No memory loss Psychiatric: No depression symptoms Endocrine: + fatigue, + excessive urination Physical Exam Vital Signs Date Time Temp Pulse Resp B/P (MAP) Pulse Ox O2 Delivery O2 Flow Rate FiO2 10/01/16 05:06 36.5 125 18 118/49 96 10/01/16 04:51 125 18 118/49 96 Room Air 10/01/16 04:39 126 10/01/16 03:47 130 18 122/61 96 Room Air 10/01/16 02:22 122 18 157/84 100 Room Air 10/01/16 01:39 Room Air 10/01/16 00:57 126 10/01/16 00:55 36.5 124 18 180/94 100 Room Air General Appearance: WD/WN Head: normocephalic Eyes: normal inspection ENT: hearing grossly normal, + pertinent finding (dry oral mucosa) Neck: supple Respiratory/Chest: chest non-tender, lungs clear, normal breath sounds, no respiratory distress, no accessory muscle use Cardiovascular: + tachycardia Abdomen/GI: normal bowel sounds, soft, + tenderness (mild epigastric tenderness ) Back: normal range of motion Extremities/Musculoskelatal: no pedal edema, normal range of motion Neurologic/Psych: alert, normal mood/affect, oriented x 3 Diagnostics Laboratory Results Results Past 24 Hours Test 10/01/16 00:31 10/01/16 01:04 10/01/16 01:50 10/01/16 01:59 Range/Units White Blood Count 25.09 4.8-10.8 K/uL Red Blood Count 5.09 4.2-5.4 M/uL Hemoglobin 13.6 12.0-16.0 g/dL Hematocrit 41.7 37-47 % Mean Corpuscular Volume 81.9 80-100 fL Mean Corpuscular Hemoglobin 26.7 25-34 pg Mean Corpuscular Hemoglobin Concent 32.6 32-36 g/dl Platelet Count 453 130-400 K/uL Mean Platelet Volume 11.0 7.4-10.4 fL Neutrophils (%) (Auto) 81.9 % Lymphocytes (%) (Auto) 13.3 % Monocytes (%) (Auto) 3.6 % Eosinophils (%) (Auto) 0.2 % Basophils (%) (Auto) 0.4 % Neutrophils # (Auto) 20.57 1.4-6.5 K/uL Lymphocytes # (Auto) 3.33 1.2-3.4 K/uL Monocytes # (Auto) 0.90 0.11-0.59 K/uL Eosinophils # (Auto) 0.04 0-0.5 K/uL Basophils # (Auto) 0.10 0-0.2 K/uL RDW Standard Deviation 39.9 36.4-46.3 fL RDW Coefficient of Variation 13.2 11.5-14.5 % Immature Granulocyte % (Auto) 0.6 % Immature Granulocyte # (Auto) 0.15 0.00-0.02 K/uL Echinocytes 1+ Prothrombin Time 10.3 9.0-12.0 SECONDS Prothromb Time International Ratio 1.0 0.9-1.1 Activated Partial Thromboplast Time 23.3 21.0-31.0 SECONDS Partial Thromboplastin Ratio 0.9 Sodium Level 133 136-145 mmol/L Potassium Level 4.2 3.5-5.1 mmol/L Chloride Level 92 98-107 mmol/L Carbon Dioxide Level 13 21-32 mmol/L Anion Gap 28.0 3-11 mmol/L Blood Urea Nitrogen 28 7-18 mg/dl Creatinine 1.80 0.60-1.20 mg/dl Est Creatinine Clear Calc Drug Dose 40.6 ml/min Estimated GFR () 36.9 Estimated GFR (Non- 31.8 BUN/Creatinine Ratio 15.8 10-20 Random Glucose 645 70-99 mg/dl Calcium Level 9.4 8.5-10.1 mg/dl Total Bilirubin 1.3 0.2-1 mg/dl Aspartate Amino Transf (AST/SGOT) 11 15-37 U/L Alanine Aminotransferase (ALT/SGPT) 26 12-78 U/L Alkaline Phosphatase 162 45-117 U/L Total Creatine Kinase 51 26-192 U/L Creatine Kinase MB < 0.5 0.5-3.6 ng/ml Creatine Kinase MB Ratio 0-3.0 Troponin I < 0.015 0-0.045 ng/ml Total Protein 7.6 6.4-8.2 gm/dl Albumin 4.0 3.4-5.0 gm/dl Globulin 3.6 2.5-4.0 gm/dl Albumin/Globulin Ratio 1.1 0.9-2 Lipase 54 73-393 U/L Beta-Hydroxybutyric Acid 82.37 0.2-2.81 mg/dL Bedside Glucose 582 70-90 mg/dl Arterial Blood pH 7.21 7.35-7.45 Arterial Blood Partial Pressure CO2 26 35-46 mmHg Arterial Blood Partial Pressure O2 89 80-95 mm/Hg Arterial Blood HCO3 10 19-24 mmol/L Arterial Blood Oxygen Saturation 94.8 90-95 % Arterial Blood Base Excess -16.2 -9-1.8 mEq/L Arterial Blood Gas Delivery RA Pancho Test POS POS Bedside Lactic Acid Arterial 3.33 0.36-1.25 mmol/L Test 10/01/16 02:20 10/01/16 03:40 10/01/16 04:11 10/01/16 04:41 Range/Units Urine Color YELLOW Urine Appearance CLEAR CLEAR Urine pH 5.0 4.5-7.5 Urine Specific [place] 1.029 1.000-1.030 Urine Protein NEG NEG Urine Glucose (UA) 3+ NEG Urine Ketones 4+ NEG Urine Occult Blood NEG NEG Urine Nitrite NEG NEG Urine Bilirubin NEG NEG Urine Urobilinogen NEG NEG Urine Leukocyte Esterase NEG NEG Urine WBC (Auto) 0 0-5 /hpf Urine RBC (Auto) 0-4 0-4 /hpf Urine Hyaline Casts (Auto) 0 0-5 /lpf Urine Epithelial Cells (Auto) 10-20 0-5 /lpf Urine Bacteria (Auto) NEG NEG Bedside Glucose 534 480 70-90 mg/dl Lactic Acid Level 2.3 0.4-2.0 mmol/L Microbiology Results 10/01/16 Blood Culture, Received Pending 10/01/16 Blood Culture, Received Pending Impression Assessment and Plan 50-year-old female with past medical history of diabetes mellitus, hypertension , hyperlipidemia, and a generalized anxiety disorder, status post left BKA presented to the ER with complaints of persistent nausea and vomiting started yesterday. On admission , she was found to be in DKA with a blood sugar of 645, anion gap of 28, positive ketones with beta hydroxy uric acid of 82.3 DKA: - Continue IV fluids for protocol - Was started on insulin drip in the ER - Continue insulin drip per protocol and switch to sliding scale insulin after blood sugar within goal range - Monitor electrolytes Acute kidney injury: Creatinine at 1.8 - Likely secondary to dehydration due to GI losses Chronic pain: s/p left BKA - continue home meds Anxiety/Depression - Cymbalta 30 mg daily - Trazodone 50 mg HS for sleep Hypertension -Continue metoprolol XL 25 mg daily and lisinopril 2.5 mg daily Hyperlipidemia -Continue atorvastatin 80 mg daily GERD -Home regimen Nexium 40 mg BID and Pepcid 40 mg daily DVT prophylaxis: Heparin SQ Full code Disposition: admitted to [facility] VTE Prophylaxis VTE Risk Assessment Done? Y/N: Yes Risk Level: Moderate Resident Tracking Resident Involvement: Resident Care Provided Care Provided: Adult [facility] Medicine Assessment and Plan Attending Addendum: I have physically seen and examined this patient, have directed their medical care, have supervised the medical residents activities, and agree with the H&P as noted above, with the following changes: NONE
[2016-10-01] MEDS: NSS + 20MEQ KCL 1000ML 1,000 ML IV SCH ×3 (06:31→14:31)
[2016-10-01] MEDS ORDERED: FAMOTIDINE 20 MG TAB PO STA (06:41)
[2016-10-01] MEDS ORDERED: NURSING VERBAL MED ORDER ONE (06:45)
[2016-10-01] MEDS ORDERED: INSULIN ASPART 100 UNITS/ML 3 ML PEN SC SCH (07:00)
--- NOTE | 2016-10-01 07:40 | DIAGNOSTIC IMAGING REPORT ---
CHEST ONE VIEW PORTABLE CLINICAL HISTORY: Sepsis. Abdominal pain. Vomiting. COMPARISON STUDY: Chest radiograph June 27, 2016. FINDINGS: Anterior cervical spine fusion is incidentally noted. There is no consolidation to suggest pneumonia. Cardiac size is normal. Mediastinal contours are normal. There is no evidence of pulmonary edema. IMPRESSION: No acute cardiopulmonary findings. Electronically signed by: Oscar Henao M.D. 10/01/2016 7:38 AM Dictated Date/Time: 10/01/2016 7:37 AM
[2016-10-01] MEDS: CARISOPRODOL 350 MG TAB PO PRN ×3 (07:59→20:11)
[2016-10-01] MEDS: TAPENTADOL HCL 50 MG TAB PO PRN ×2 (07:59→20:10)
[2016-10-01] MEDS: PANTOprazole SOD 40 MG TAB PO SCH ×2 (07:59→20:11)
[2016-10-01] MEDS: METOPROLOL SUCC 25MG EXT REL TAB PO SCH (08:00)
[2016-10-01] MEDS: DOCUSATE SODIUM 100 MG CAP PO SCH ×2 (08:00→20:11)
[2016-10-01] MEDS: DULOXETINE HCL 60 MG CAP PO SCH (08:00)
[2016-10-01] MEDS: LISINOPRIL 2.5 MG TAB PO SCH (08:01)
[2016-10-01] MEDS: INSULIN ASPART 100 UNITS/ML 3 ML PEN SC SCH ×4 (08:05→20:14)
--- NOTE | 2016-10-01 08:24 | Progress Note ---
Subjective Date of Service: Oct 01, 2016. Subjective pt has been having some pre hospital distress not feeling well with some abdominal pain and nausea, not clear if just sx of DKA but pt carries a long history of abdominal distress maybe associated with diabetes or perhaps medications Problem List Medical Problems: (1) DKA (diabetic ketoacidoses) Status: Acute (2) Fever Status: Acute (3) Headache Status: Acute (4) Low back pain Status: Acute Review of Systems Constitutional: + weakness, + fatigue, No fever, No chills Respiratory: No cough, No shortness of breath, No dyspnea on exertion Cardiac: No orthopnea, No edema Abdomen: + pain, + nausea, No vomiting, No diarrhea, No constipation, No GI bleeding Musculoskeletal: No joint pain Female : + urinary frequency, No dysuria, No hematuria, No incontinence Neurologic: No memory loss, No paralysis Psychiatric: + depression symptoms, + anxiety Endo: + excessive thirst, + excessive urination Objective Vital Signs Date Time Temp Pulse Resp B/P (MAP) Pulse Ox O2 Delivery O2 Flow Rate FiO2 10/01/16 06:54 37.1 122 22 125/67 100 Room Air 10/01/16 05:06 36.5 125 18 118/49 96 10/01/16 04:51 125 18 118/49 96 Room Air 10/01/16 04:39 126 10/01/16 03:47 130 18 122/61 96 Room Air 10/01/16 02:22 122 18 157/84 100 Room Air 10/01/16 01:39 Room Air 10/01/16 00:57 126 10/01/16 00:55 36.5 124 18 180/94 100 Room Air Physical Exam General Appearance: WD/WN, + mild distress ENT: normal ENT inspection, pharynx normal Neck: supple, no JVD Respiratory/Chest: chest non-tender, lungs clear, normal breath sounds Cardiovascular: regular rate, rhythm, no murmur Abdomen: normal bowel sounds, non tender, soft Extremities: no pedal edema, no calf tenderness 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: alert, oriented x 3 Laboratory Results Last 24 Hours Test 10/01/16 00:31 10/01/16 01:04 10/01/16 01:50 10/01/16 01:59 White Blood Count 25.09 K/uL Red Blood Count 5.09 M/uL Hemoglobin 13.6 g/dL Hematocrit 41.7 % Mean Corpuscular Volume 81.9 fL Mean Corpuscular Hemoglobin 26.7 pg Mean Corpuscular Hemoglobin Concent 32.6 g/dl Platelet Count 453 K/uL Mean Platelet Volume 11.0 fL Neutrophils (%) (Auto) 81.9 % Lymphocytes (%) (Auto) 13.3 % Monocytes (%) (Auto) 3.6 % Eosinophils (%) (Auto) 0.2 % Basophils (%) (Auto) 0.4 % Neutrophils # (Auto) 20.57 K/uL Lymphocytes # (Auto) 3.33 K/uL Monocytes # (Auto) 0.90 K/uL Eosinophils # (Auto) 0.04 K/uL Basophils # (Auto) 0.10 K/uL RDW Standard Deviation 39.9 fL RDW Coefficient of Variation 13.2 % Immature Granulocyte % (Auto) 0.6 % Immature Granulocyte # (Auto) 0.15 K/uL Echinocytes 1+ Prothrombin Time 10.3 SECONDS Prothromb Time International Ratio 1.0 Activated Partial Thromboplast Time 23.3 SECONDS Partial Thromboplastin Ratio 0.9 Sodium Level 133 mmol/L Potassium Level 4.2 mmol/L Chloride Level 92 mmol/L Carbon Dioxide Level 13 mmol/L Anion Gap 28.0 mmol/L Blood Urea Nitrogen 28 mg/dl Creatinine 1.80 mg/dl Est Creatinine Clear Calc Drug Dose 40.6 ml/min Estimated GFR () 36.9 Estimated GFR (Non- 31.8 BUN/Creatinine Ratio 15.8 Random Glucose 645 mg/dl Calcium Level 9.4 mg/dl Total Bilirubin 1.3 mg/dl Aspartate Amino Transf (AST/SGOT) 11 U/L Alanine Aminotransferase (ALT/SGPT) 26 U/L Alkaline Phosphatase 162 U/L Total Creatine Kinase 51 U/L Creatine Kinase MB < 0.5 ng/ml Creatine Kinase MB Ratio Troponin I < 0.015 ng/ml Total Protein 7.6 gm/dl Albumin 4.0 gm/dl Globulin 3.6 gm/dl Albumin/Globulin Ratio 1.1 Lipase 54 U/L Beta-Hydroxybutyric Acid 82.37 mg/dL Bedside Glucose 582 mg/dl Arterial Blood pH 7.21 Arterial Blood Partial Pressure CO2 26 mmHg Arterial Blood Partial Pressure O2 89 mm/Hg Arterial Blood HCO3 10 mmol/L Arterial Blood Oxygen Saturation 94.8 % Arterial Blood Base Excess -16.2 mEq/L Arterial Blood Gas Delivery RA Pancho Test POS Bedside Lactic Acid Arterial 3.33 mmol/L Test 10/01/16 02:20 10/01/16 03:40 10/01/16 04:11 10/01/16 04:41 Urine Color YELLOW Urine Appearance CLEAR Urine pH 5.0 Urine Specific [place] 1.029 Urine Protein NEG Urine Glucose (UA) 3+ Urine Ketones 4+ Urine Occult Blood NEG Urine Nitrite NEG Urine Bilirubin NEG Urine Urobilinogen NEG Urine Leukocyte Esterase NEG Urine WBC (Auto) 0 /hpf Urine RBC (Auto) 0-4 /hpf Urine Hyaline Casts (Auto) 0 /lpf Urine Epithelial Cells (Auto) 10-20 /lpf Urine Bacteria (Auto) NEG Bedside Glucose 534 mg/dl 480 mg/dl Lactic Acid Level 2.3 mmol/L Test 10/01/16 05:45 10/01/16 06:44 10/01/16 07:46 10/01/16 08:00 Bedside Glucose 358 mg/dl 302 mg/dl 263 mg/dl Assessment and Plan 50-year-old female with DKA, pH 7.21 on presentation DKA: insulin drip started in the ER, has closed anion gap this afternoon, will transition to basal bolus with pharmacy help likely with this pm lantus bolus dose abdominal discomfort, did just start cymbalta so could be med related, if seems like intestinal angina, may consider evaluation of Celilac plexus for PAD associated with her IDDM Acute kidney injury: hopeful to improve with hydration Chronic pain: s/p left BKA soma, nucynta Anxiety/Depression- Cymbalta 30 mg daily- Trazodone 50 mg HS for sleep Hypertension metoprolol XL 25 mg daily and lisinopril 2.5 mg daily Hyperlipidemia atorvastatin 80 mg daily GERD Nexium 40 mg BID and Pepcid 40 mg daily DVT prophylaxis:Heparin SQ Full code Disposition: admitted to tele
[2016-10-01 09:03] LABS: BUN/CREATININE RATIO 16.6 (10-20); CREATININE 1.6 mg/dl (0.60-1.20); MAGNESIUM 2.1 mg/dl (1.8-2.4); PHOSPHORUS 2.1 mg/dl (2.5-4.9); POTASSIUM 4.4 mmol/L (3.5-5.1)
[2016-10-01 09:11] LABS: CALCIUM 7.6 mg/dl (8.5-10.1)
[2016-10-01 09:14] LABS: BETA-HYDROXYBUTYRATE 24.22 mg/dL (0.2-2.81)
[2016-10-01] MEDS ORDERED: MAGIC SWIZZLE PO PRN (11:15)
[2016-10-01] MEDS ORDERED: COUGH DROP (SUGAR FREE) LOZ 24 LOZ/1 BOX PO PRN (11:15)
[2016-10-01] MEDS ORDERED: LIDOCAINE HCL 2% VISCOUS SOLN 60 ML, DiphenhydrAMINE HCL SYRUP 150 MG, ALUMINUM/MAGNESI... MT PRN ×4 (11:45)
--- NOTE | 2016-10-01 13:15 | Medical Student: [facility] ---
Med Student Progress Note Date of Service Oct 01, 2016. Subjective This is a 50 y/o female with pmh of DMII, left BKA, HTN, Albright's esophagus, who has been admitted for Diabetic ketoacidosis. Over the past month she has had generalized feelings of malaise, with episodes of nausea and vomiting that are associated with diaphoresis and lightheadedness. Acutely over the past few days she has felt extremely unwell with profuse vomiting. In the ED, she was found to have an elevated glucose level of over 600, a beta hydroxybutyrate of over 80, and 4+ ketones in her urine. She has been managed with DKA protocol and her labs are slowly stabilizing. She feels better than yesterday but still overall not well. She is unsure of what has precipitated this acute event. She has not had a recent illness or fever that she is aware of. She has had some new back pain over the past month, and just describes feeling generally low energy and 'not herself' for the past while. She complains of stomach pain and fears that she has an ulcer. She has a chronic cough as well as chronic GI issues, for which she follows with Dr. Ha. Otherwise, she denies any new chest pain, dyspnea, hemoptysis. She denies diarrhea, hematochezia. Review of Systems Constitutional: + chills, No fever, No weight loss Respiratory: + cough, No sputum, No wheezing, No shortness of breath Cardiac: No edema Musculoskeletal: No joint pain, No muscle pain Female : No dysuria, No hematuria Neurologic: + weakness, No numbness/tingling, No vertigo Endo: + fatigue, + excessive urination Skin: No rash Objective Vital Signs Date Time Temp Pulse Resp B/P (MAP) Pulse Ox O2 Delivery O2 Flow Rate FiO2 10/01/16 12:10 Nasal Cannula 2.0 10/01/16 11:46 37.1 108 22 113/63 (80) 99 Nasal Cannula 2.0 10/01/16 08:30 100 Nasal Cannula 2.0 10/01/16 07:30 37.3 109 22 111/63 (79) 100 Nasal Cannula 2.0 10/01/16 06:54 37.1 122 22 125/67 100 Room Air 10/01/16 05:06 36.5 125 18 118/49 96 10/01/16 04:51 125 18 118/49 96 Room Air 10/01/16 04:39 126 10/01/16 03:47 130 18 122/61 96 Room Air 10/01/16 02:22 122 18 157/84 100 Room Air 10/01/16 01:39 Room Air 10/01/16 00:57 126 10/01/16 00:55 36.5 124 18 180/94 100 Room Air Physical Exam General Appearance: WD/WN, + mild distress Eyes: bilateral eyes normal inspection ENT: pharynx normal Neck: supple, no adenopathy, thyroid normal, no JVD Respiratory/Chest: chest non-tender, lungs clear, normal breath sounds, no respiratory distress, no accessory muscle use Cardiovascular: no edema, no JVD, no murmur, + tachycardia Abdomen: normal bowel sounds, soft, no organomegaly, + tenderness Extremities: + pertinent finding (left knee amputation site well healed, no signs of infection.) 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: alert, normal mood/affect, oriented x 3 Skin: normal color, warm/dry, no rash Laboratory Results Last 24 Hours Test 10/01/16 00:31 10/01/16 01:04 10/01/16 01:50 10/01/16 01:59 White Blood Count 25.09 K/uL Red Blood Count 5.09 M/uL Hemoglobin 13.6 g/dL Hematocrit 41.7 % Mean Corpuscular Volume 81.9 fL Mean Corpuscular Hemoglobin 26.7 pg Mean Corpuscular Hemoglobin Concent 32.6 g/dl Platelet Count 453 K/uL Mean Platelet Volume 11.0 fL Neutrophils (%) (Auto) 81.9 % Lymphocytes (%) (Auto) 13.3 % Monocytes (%) (Auto) 3.6 % Eosinophils (%) (Auto) 0.2 % Basophils (%) (Auto) 0.4 % Neutrophils # (Auto) 20.57 K/uL Lymphocytes # (Auto) 3.33 K/uL Monocytes # (Auto) 0.90 K/uL Eosinophils # (Auto) 0.04 K/uL Basophils # (Auto) 0.10 K/uL RDW Standard Deviation 39.9 fL RDW Coefficient of Variation 13.2 % Immature Granulocyte % (Auto) 0.6 % Immature Granulocyte # (Auto) 0.15 K/uL Echinocytes 1+ Prothrombin Time 10.3 SECONDS Prothromb Time International Ratio 1.0 Activated Partial Thromboplast Time 23.3 SECONDS Partial Thromboplastin Ratio 0.9 Sodium Level 133 mmol/L Potassium Level 4.2 mmol/L Chloride Level 92 mmol/L Carbon Dioxide Level 13 mmol/L Anion Gap 28.0 mmol/L Blood Urea Nitrogen 28 mg/dl Creatinine 1.80 mg/dl Est Creatinine Clear Calc Drug Dose 40.6 ml/min Estimated GFR () 36.9 Estimated GFR (Non- 31.8 BUN/Creatinine Ratio 15.8 Random Glucose 645 mg/dl Calcium Level 9.4 mg/dl Total Bilirubin 1.3 mg/dl Aspartate Amino Transf (AST/SGOT) 11 U/L Alanine Aminotransferase (ALT/SGPT) 26 U/L Alkaline Phosphatase 162 U/L Total Creatine Kinase 51 U/L Creatine Kinase MB < 0.5 ng/ml Creatine Kinase MB Ratio Troponin I < 0.015 ng/ml Total Protein 7.6 gm/dl Albumin 4.0 gm/dl Globulin 3.6 gm/dl Albumin/Globulin Ratio 1.1 Lipase 54 U/L Beta-Hydroxybutyric Acid 82.37 mg/dL Bedside Glucose 582 mg/dl Arterial Blood pH 7.21 Arterial Blood Partial Pressure CO2 26 mmHg Arterial Blood Partial Pressure O2 89 mm/Hg Arterial Blood HCO3 10 mmol/L Arterial Blood Oxygen Saturation 94.8 % Arterial Blood Base Excess -16.2 mEq/L Arterial Blood Gas Delivery RA Pancho Test POS Bedside Lactic Acid Arterial 3.33 mmol/L Test 10/01/16 02:20 10/01/16 03:40 10/01/16 04:11 10/01/16 04:41 Urine Color YELLOW Urine Appearance CLEAR Urine pH 5.0 Urine Specific [place] 1.029 Urine Protein NEG Urine Glucose (UA) 3+ Urine Ketones 4+ Urine Occult Blood NEG Urine Nitrite NEG Urine Bilirubin NEG Urine Urobilinogen NEG Urine Leukocyte Esterase NEG Urine WBC (Auto) 0 /hpf Urine RBC (Auto) 0-4 /hpf Urine Hyaline Casts (Auto) 0 /lpf Urine Epithelial Cells (Auto) 10-20 /lpf Urine Bacteria (Auto) NEG Bedside Glucose 534 mg/dl 480 mg/dl Lactic Acid Level 2.3 mmol/L Test 10/01/16 05:45 10/01/16 06:44 10/01/16 07:46 10/01/16 08:33 Bedside Glucose 358 mg/dl 302 mg/dl 263 mg/dl Venous Blood pH 7.28 Sodium Level 139 mmol/L Potassium Level 4.4 mmol/L Chloride Level 107 mmol/L Carbon Dioxide Level 19 mmol/L Anion Gap 13.0 mmol/L Blood Urea Nitrogen 27 mg/dl Creatinine 1.60 mg/dl Est Creatinine Clear Calc Drug Dose 45.7 ml/min Estimated GFR () 42.5 Estimated GFR (Non- 36.7 BUN/Creatinine Ratio 16.6 Random Glucose 302 mg/dl Calcium Level 7.6 mg/dl Phosphorus Level 2.1 mg/dl Magnesium Level 2.1 mg/dl Beta-Hydroxybutyric Acid 24.22 mg/dL Test 10/01/16 08:40 10/01/16 09:42 10/01/16 10:41 10/01/16 11:37 Bedside Glucose 294 mg/dl 236 mg/dl 217 mg/dl 176 mg/dl Test 10/01/16 12:00 Medications Medications Administered Medications (Trade) Dose Ordered Sig/Nichol Route Start Time Stop Time Status Last Admin Dose Admin Ondansetron HCl (Zofran Inj) 4 mg NOW STAT IV 10/01/16 01:30 10/01/16 01:32 DC 10/01/16 01:39 4 MG Sodium Chloride 1,000 ml @ 999 mls/hr Q1H1M STAT IV 10/01/16 01:30 10/01/16 02:30 DC 10/01/16 01:37 999 MLS/HR Sodium Chloride 1,000 ml @ 250 mls/hr Q4H STAT IV 10/01/16 01:30 10/01/16 05:29 DC 10/01/16 02:30 250 MLS/HR Miscellaneous (Insulin Protocol Dka Goal Range) 1 ea ONE ONCE N/A 10/01/16 02:15 10/01/16 02:21 DC 10/01/16 02:49 1 EA Insulin Human Regular 3.5 unit/ Syringe 3.5 ml @ 1 mls/min NOW STAT IV 10/01/16 02:22 10/01/16 02:25 DC 10/01/16 02:42 1 MLS/MIN Insulin Human Regular 250 units/ Sodium Chloride 252.5 ml @ 0 mls/hr NOW STAT IV 10/01/16 02:22 10/01/16 02:23 DC 10/01/16 02:41 3.3 MLS/HR Potassium Chloride/Sodium Chloride 1,000 ml @ 0 mls/hr Q0M STAT IV 10/01/16 02:38 10/01/16 02:40 DC 10/01/16 03:03 500 MLS/HR Fentanyl Citrate (Fentanyl Inj) 75 mcg NOW STAT IV 10/01/16 03:16 10/01/16 03:17 DC 10/01/16 03:38 75 MCG Insulin Aspart (novoLOG ASPART) SLIDING SCALE PCHS SC 10/01/16 08:00 10/31/16 08:59 10/01/16 11:41 6 UNITS Carisoprodol (Soma Tab) 350 mg TID PRN PO 10/01/16 04:30 10/31/16 04:29 10/01/16 11:44 350 MG Docusate Sodium (coLACE CAP) 100 mg BID PO 10/01/16 09:00 10/31/16 08:59 10/01/16 08:00 100 MG Duloxetine HCl (Cymbalta Cap) 60 mg DAILY PO 10/01/16 09:00 10/31/16 08:59 10/01/16 08:00 60 MG Lisinopril (Zestril Tab) 2.5 mg QAM PO 10/01/16 09:00 10/31/16 08:59 10/01/16 08:01 2.5 MG Metoprolol Succinate (Toprol Xl Tab) 25 mg DAILY PO 10/01/16 09:00 10/31/16 08:59 10/01/16 08:00 25 MG Tapentadol (Nucynta Tab) 50 mg Q4H PRN PO 10/01/16 04:30 10/15/16 04:29 10/01/16 07:59 50 MG Buspirone HCl (Buspar Tab) 10 mg BID PO 10/01/16 09:00 10/31/16 08:59 10/01/16 08:01 10 MG Pantoprazole Sodium (Protonix Tab) 40 mg BID PO 10/01/16 09:00 10/31/16 08:59 10/01/16 07:59 40 MG Insulin Human Regular 250 units/ Sodium Chloride 252.5 ml @ 0 mls/hr DAILY@1130 IV 10/01/16 11:30 10/31/16 11:29 10/01/16 11:42 3 MLS/HR Potassium Chloride/Sodium Chloride 1,000 ml @ 250 mls/hr Q4H IV 10/01/16 06:00 10/31/16 05:59 10/01/16 10:56 250 MLS/HR Famotidine (Pepcid Tab) 20 mg NOW STAT PO 10/01/16 06:41 10/01/16 06:42 DC 10/01/16 08:05 20 MG Assessment and Plan Assessment and Plan: This is a 50 y/o female with DMII, HTN who is being treated for DKA. At this time, it is unknown what has triggered her DKA. We will stabilize her today and reassess in terms of how best to work up for potential triggers of DKA. DKA -Continue NSS with 20 meq KCl 250 cc/hr -Continue insulin drip until anion gap closed at 3.8 units/hr per protocol; then transition to sliding scale -Monitor electrolytes -A1C in AM -Blood cultures, urine culture pending -CXR normal -Zofran prn for nausea HTN -Continue home metoprolol -Continue Lisinopril GERD -Continue protonix -Continue famotidine -Magic swizzle prn Hypercholesterolemia -Continue home statin MDD/SUMIT -Continue cymbalta -continue Buspar -Trazodone pm Chronic Pain -Continue Soma, Nucynta Diet -Diabetic diet DVT prophylaxis: continue home heparin Continued [facility] stay due to: abnormal vital signs, multiple IV medications needed Discharge planning: uncertain
[2016-10-01 13:16] LABS: BUN/CREATININE RATIO 17.5 (10-20); CALCIUM 7.1 mg/dl (8.5-10.1); CREATININE 1.5 mg/dl (0.60-1.20); MAGNESIUM 2.2 mg/dl (1.8-2.4); PHOSPHORUS 2.2 mg/dl (2.5-4.9); POTASSIUM 4.5 mmol/L (3.5-5.1)
[2016-10-01] MEDS: HEPARIN SOD 5000 UNIT/0.5 ML CARP SQ SCH ×2 (14:22→22:47)
[2016-10-01] MEDS ORDERED: PHARMACY GLYCEMIC MGMT CONSULT PRN (14:36)
--- NOTE | 2016-10-01 15:19 | Pharmacy Progress Note ---
Glycemic Control Intl Consult Date of Service Oct 01, 2016. Scope Glycemic Pharmacist consulted by Dr Johnson on 10/01/16 for glycemic control and to write orders per [facility] inpatient glycemic control protocol Objective Weight (Kilograms): 87.000 Accuchecks BSG (last 24hrs): Test 10/01/16 00:31 10/01/16 01:04 10/01/16 03:40 10/01/16 04:41 Random Glucose 645 mg/dl (70-99) Bedside Glucose 582 mg/dl (70-90) 534 mg/dl (70-90) 480 mg/dl (70-90) Test 10/01/16 05:45 10/01/16 06:44 10/01/16 07:46 10/01/16 08:33 Bedside Glucose 358 mg/dl (70-90) 302 mg/dl (70-90) 263 mg/dl (70-90) Random Glucose 302 mg/dl (70-99) Test 10/01/16 08:40 10/01/16 09:42 10/01/16 10:41 10/01/16 11:37 Bedside Glucose 294 mg/dl (70-90) 236 mg/dl (70-90) 217 mg/dl (70-90) 176 mg/dl (70-90) Test 10/01/16 12:50 10/01/16 12:52 10/01/16 14:01 10/01/16 14:43 Random Glucose 175 mg/dl (70-99) Bedside Glucose 173 mg/dl (70-90) 158 mg/dl (70-90) 127 mg/dl (70-90) Laboratory Data (last 24hrs) Test 10/01/16 00:31 10/01/16 08:33 10/01/16 12:50 Anion Gap 28.0 mmol/L 13.0 mmol/L 8.0 mmol/L BUN/Creatinine Ratio 15.8 16.6 17.5 Blood Urea Nitrogen 28 mg/dl 27 mg/dl 26 mg/dl Creatinine 1.80 mg/dl 1.60 mg/dl 1.50 mg/dl Potassium Level 4.2 mmol/L 4.4 mmol/L 4.5 mmol/L Sodium Level 133 mmol/L 139 mmol/L 142 mmol/L White Blood Count 25.09 K/uL Red Blood Count 5.09 M/uL Hemoglobin 13.6 g/dL Hematocrit 41.7 % Mean Corpuscular Volume 81.9 fL Mean Corpuscular Hemoglobin 26.7 pg Mean Corpuscular Hemoglobin Concent 32.6 g/dl Platelet Count 453 K/uL Mean Platelet Volume 11.0 fL Neutrophils (%) (Auto) 81.9 % Lymphocytes (%) (Auto) 13.3 % Monocytes (%) (Auto) 3.6 % Eosinophils (%) (Auto) 0.2 % Basophils (%) (Auto) 0.4 % Neutrophils # (Auto) 20.57 K/uL Lymphocytes # (Auto) 3.33 K/uL Monocytes # (Auto) 0.90 K/uL Eosinophils # (Auto) 0.04 K/uL Basophils # (Auto) 0.10 K/uL Recent Pertinent Medications Outpatient Anti-diabetic Regimen: * Lantus 42 units qPM + Novolog sliding scale (unable to confirm dosing) + Victoza 1.8 mg qAM The patient is currently receiving: * Insulin gtt --> currently running at 3-4 units/hr (estimate about 95 units/ day from gtt) Risk Factors for Insulin Resistance: * IVF: NS + 20 KCl @ 250 cc/hr --> discontinued by provider * Diet: type 2 diet Assessment & Plan ASSESSMENT: * ADA & AACE recommend a goal blood sugar range 140-180 mg/dl for the majority of critically ill & non-critically ill patients. However, more stringent targets may be selected in individual cases. Will utilize more stringent goal of 110-140mg/dl based on patient age & comorbidities. Additionally, tighter glycemic control is warranted to facilitate wound/infection healing. * Ms Isabel was admitted overnight on 10/01/16 on an insulin gtt for DKA. She was requiring around 3-4 units/hr this morning which equates to 95 units/day. This would be a more reliable indication of the patient's true needs as she is less insulin resistant then when starting the insulin drip. Since the patient takes 42 units at home and the insulin drip indicated that this would be an appropriate amount this dose was utilized. This represents a full 24 hour dose of Lantus. Since the patient is still somewhat insulin resistant, weight based stress of 2 correctional Novolog was ordered. PLAN FOR INPATIENT GLYCEMIC CONTROL: * Holding outpatient oral diabetes medications * Basal insulin with LANTUS 42 units SQ x 1 then qHS; turn gtt off 6 hours after giving Lantus or let it turn itself off whichever sooner * Correctional Insulin with NOVOLOG per scale ACHS or * Goal Range: Low 110 mg/dL - High 140 mg/dL * Correction Factor: 20 mg/dL/unit * Nutritional / Prandial insulin per carb ratio of 1 unit per 6 grams CHO consumed * Please note that the plan above was derived based on current level of insulin resistance and hospital stress. These recommendations are appropriate for inpatient admission only. Plan of care upon discharge will need to be reassessed to avoid potential outpatient hypo/hyperglycemia. Thank you.
[2016-10-01] MEDS ORDERED: INSULIN GLARGINE SOLOSTAR 100 UNITS/ML 3 ML PEN SC ONE (16:00)
[2016-10-01 16:56] LABS: BUN/CREATININE RATIO 19.5 (10-20); CALCIUM 7.4 mg/dl (8.5-10.1); CREATININE 1.3 mg/dl (0.60-1.20); MAGNESIUM 2.2 mg/dl (1.8-2.4); POTASSIUM 4.5 mmol/L (3.5-5.1)
[2016-10-01 16:57] LABS: PHOSPHORUS 2.2 mg/dl (2.5-4.9)
[2016-10-01] MEDS ORDERED: DC IV INSULIN INFUSION ONE (18:00)
[2016-10-01] MEDS: TRAZODONE HCL 50 MG TAB PO SCH (20:11)
[2016-10-01] MEDS: ATORVASTATIN 40 MG TAB PO SCH (20:11)
[2016-10-01] MEDS: ASPIRIN 81 MG ECTAB PO SCH (20:12)
[2016-10-01] MEDS: FAMOTIDINE 20 MG TAB PO SCH (20:12)
[2016-10-01 21:07] LABS: BUN/CREATININE RATIO 17.9 (10-20); CALCIUM 7.1 mg/dl (8.5-10.1); CREATININE 1.4 mg/dl (0.60-1.20); PHOSPHORUS 1.8 mg/dl (2.5-4.9); POTASSIUM 4.4 mmol/L (3.5-5.1)
[2016-10-01 21:17] LABS: BETA-HYDROXYBUTYRATE 3.96 mg/dL (0.2-2.81)
[2016-10-02] VITALS (10 sets, daily range): BP systolic 87–157; BP diastolic 45–93; PULSE 79–98; TEMP 36.4–37.1; O2SAT 94–100; Ht 167.6 cm; Wt 86.7 kg
[2016-10-02] MEDS: HEPARIN SOD 5000 UNIT/0.5 ML CARP SQ SCH ×3 (06:21→21:39)
[2016-10-02 06:52] LABS: ESTIMATED AVERAGE GLUCOSE 266 mg/dl; HA1C FLAG Normal (Normal)
[2016-10-02] MEDS: LISINOPRIL 2.5 MG TAB PO SCH (08:09)
[2016-10-02] MEDS: METOPROLOL SUCC 25MG EXT REL TAB PO SCH (08:10)
[2016-10-02] MEDS: PANTOprazole SOD 40 MG TAB PO SCH ×2 (08:10→20:51)
[2016-10-02] MEDS: DULOXETINE HCL 60 MG CAP PO SCH (08:10)
[2016-10-02] MEDS: DOCUSATE SODIUM 100 MG CAP PO SCH ×2 (08:10→20:49)
[2016-10-02] MEDS: INSULIN ASPART 100 UNITS/ML 3 ML PEN SC SCH ×4 (08:14→20:56)
[2016-10-02] MEDS: CARISOPRODOL 350 MG TAB PO PRN ×2 (08:20→17:13)
[2016-10-02] MEDS: TAPENTADOL HCL 50 MG TAB PO PRN ×2 (08:20→17:13)
[2016-10-02] MEDS ORDERED: GI COCKTAIL PO ONE (12:00)
[2016-10-02] MEDS ORDERED: ALUMINUM/MAGNESIUM SUSP 18 ML, LIDOCAINE HCL 2% VISCOUS SOLN 6 ML, BARCODE IDENTIFIER 1 EA PO ONE ×2 (13:00)
--- NOTE | 2016-10-02 13:17 | Medical Student: [facility] ---
Med Student Progress Note Date of Service Oct 02, 2016. Subjective Patient continues to complain of abdominal pain and back/neck pain. She rates the abdominal pain as a 4/10 and describes it as feeling like there is a 'knot' in her stomach. She has been eating some of her meals, but does not have much of an appetite.She says she still feels weak and exhausted. Of note, her blood glucose was 46 this AM. It was corrected with a snack and soda. She had a bowel movement yesterday. Review of Systems Constitutional: + weight loss (40 lb weight loss in past few months), No fever , No chills Respiratory: No cough, No sputum, No wheezing Cardiac: No chest pain Abdomen: + pain, + nausea, No vomiting, No diarrhea, No constipation Female : No dysuria Skin: No rash Objective Vital Signs Date Time Temp Pulse Resp B/P (MAP) Pulse Ox O2 Delivery O2 Flow Rate FiO2 10/02/16 12:30 Nasal Cannula 2.0 10/02/16 12:21 36.6 84 19 141/78 (99) 94 Nasal Cannula 2.0 10/02/16 08:20 100 Nasal Cannula 2.0 10/02/16 07:52 36.7 95 18 93/59 (70) 100 Nasal Cannula 2.0 10/02/16 04:10 Nasal Cannula 2.0 10/02/16 03:51 37.0 79 18 87/45 (59) 95 Room Air 10/02/16 00:15 96 Nasal Cannula 2.0 10/01/16 23:10 37.0 88 18 74/59 (64) 97 Nasal Cannula 2.0 10/01/16 20:20 96 Room Air 10/01/16 19:08 37.0 96 17 99/61 (74) 96 Room Air 10/01/16 16:20 Nasal Cannula 2.0 10/01/16 15:46 37.2 90 19 94/47 (63) 98 Nasal Cannula 2.0 Physical Exam General Appearance: WD/WN, no apparent distress Eyes: bilateral eyes normal inspection ENT: pharynx normal Neck: supple, no adenopathy, thyroid normal, no JVD Respiratory/Chest: chest non-tender, lungs clear, normal breath sounds Cardiovascular: regular rate, rhythm, no edema, no gallop, no JVD, no murmur Abdomen: normal bowel sounds, soft, no organomegaly, + tenderness Extremities: non-tender, normal inspection, no pedal edema 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: alert, normal mood/affect, oriented x 3 Skin: warm/dry, no rash Laboratory Results Last 24 Hours Test 10/01/16 14:01 10/01/16 14:43 10/01/16 16:03 10/01/16 16:08 Bedside Glucose 158 mg/dl 127 mg/dl 83 mg/dl Venous Blood pH 7.28 Sodium Level 142 mmol/L Potassium Level 4.5 mmol/L Chloride Level 113 mmol/L Carbon Dioxide Level 21 mmol/L Anion Gap 8.0 mmol/L Blood Urea Nitrogen 25 mg/dl Creatinine 1.30 mg/dl Est Creatinine Clear Calc Drug Dose 56.2 ml/min Estimated GFR () 54.6 Estimated GFR (Non- 47.1 BUN/Creatinine Ratio 19.5 Random Glucose 92 mg/dl Calcium Level 7.4 mg/dl Phosphorus Level 2.2 mg/dl Magnesium Level 2.2 mg/dl Test 10/01/16 16:49 10/01/16 16:59 10/01/16 17:15 10/01/16 19:51 Bedside Glucose 76 mg/dl 83 mg/dl 97 mg/dl 281 mg/dl Test 10/01/16 20:38 10/02/16 06:41 10/02/16 07:03 10/02/16 07:23 Venous Blood pH 7.32 Sodium Level 140 mmol/L Potassium Level 4.4 mmol/L Chloride Level 111 mmol/L Carbon Dioxide Level 20 mmol/L Anion Gap 9.0 mmol/L Blood Urea Nitrogen 25 mg/dl Creatinine 1.40 mg/dl Est Creatinine Clear Calc Drug Dose 52.2 ml/min Estimated GFR () 49.9 Estimated GFR (Non- 43.1 BUN/Creatinine Ratio 17.9 Random Glucose 305 mg/dl Calcium Level 7.1 mg/dl Phosphorus Level 1.8 mg/dl Magnesium Level 2.0 mg/dl Beta-Hydroxybutyric Acid 3.96 mg/dL Bedside Glucose 48 mg/dl 58 mg/dl 147 mg/dl Test 10/02/16 11:37 Bedside Glucose 222 mg/dl Medications Medications Administered Medications (Trade) Dose Ordered Sig/Nichol Route Start Time Stop Time Status Last Admin Dose Admin Ondansetron HCl (Zofran Inj) 4 mg NOW STAT IV 10/01/16 01:30 10/01/16 01:32 DC 10/01/16 01:39 4 MG Sodium Chloride 1,000 ml @ 999 mls/hr Q1H1M STAT IV 10/01/16 01:30 10/01/16 02:30 DC 10/01/16 01:37 999 MLS/HR Sodium Chloride 1,000 ml @ 250 mls/hr Q4H STAT IV 10/01/16 01:30 10/01/16 05:29 DC 10/01/16 02:30 250 MLS/HR Miscellaneous (Insulin Protocol Dka Goal Range) 1 ea ONE ONCE N/A 10/01/16 02:15 10/01/16 02:21 DC 10/01/16 02:49 1 EA Insulin Human Regular 3.5 unit/ Syringe 3.5 ml @ 1 mls/min NOW STAT IV 10/01/16 02:22 10/01/16 02:25 DC 10/01/16 02:42 1 MLS/MIN Insulin Human Regular 250 units/ Sodium Chloride 252.5 ml @ 0 mls/hr NOW STAT IV 10/01/16 02:22 10/01/16 02:23 DC 10/01/16 02:41 3.3 MLS/HR Potassium Chloride/Sodium Chloride 1,000 ml @ 0 mls/hr Q0M STAT IV 10/01/16 02:38 10/01/16 02:40 DC 10/01/16 03:03 500 MLS/HR Fentanyl Citrate (Fentanyl Inj) 75 mcg NOW STAT IV 10/01/16 03:16 10/01/16 03:17 DC 10/01/16 03:38 75 MCG Insulin Aspart (novoLOG ASPART) SLIDING SCALE [facility] 10/01/16 08:00 10/01/16 15:11 DC 10/01/16 11:41 6 UNITS Aspirin (Ecotrin Tab) 81 mg QPM PO 10/01/16 21:00 10/31/16 20:59 10/01/16 20:12 81 MG Atorvastatin Calcium (Lipitor Tab) 80 mg HS PO 10/01/16 21:00 10/31/16 20:59 10/01/16 20:11 80 MG Carisoprodol (Soma Tab) 350 mg TID PRN PO 10/01/16 04:30 10/31/16 04:29 10/02/16 08:20 350 MG Docusate Sodium (coLACE CAP) 100 mg BID PO 10/01/16 09:00 10/31/16 08:59 10/02/16 08:10 100 MG Duloxetine HCl (Cymbalta Cap) 60 mg DAILY PO 10/01/16 09:00 10/31/16 08:59 10/02/16 08:10 60 MG Famotidine (Pepcid Tab) 40 mg HS PO 10/01/16 21:00 10/31/16 20:59 10/01/16 20:12 40 MG Lisinopril (Zestril Tab) 2.5 mg QAM PO 10/01/16 09:00 10/31/16 08:59 10/01/16 08:01 2.5 MG Metoprolol Succinate (Toprol Xl Tab) 25 mg DAILY PO 10/01/16 09:00 10/31/16 08:59 10/01/16 08:00 25 MG Tapentadol (Nucynta Tab) 50 mg Q4H PRN PO 10/01/16 04:30 10/15/16 04:29 10/02/16 08:20 50 MG Trazodone HCl (Desyrel Tab) 50 mg HS PO 10/01/16 21:00 10/31/16 20:59 10/01/16 20:11 50 MG Buspirone HCl (Buspar Tab) 10 mg BID PO 10/01/16 09:00 10/31/16 08:59 10/02/16 08:10 10 MG Pantoprazole Sodium (Protonix Tab) 40 mg BID PO 10/01/16 09:00 10/31/16 08:59 10/02/16 08:10 40 MG Insulin Human Regular 250 units/ Sodium Chloride 252.5 ml @ 0 mls/hr DAILY@1130 IV 10/01/16 11:30 10/01/16 18:01 DC 10/01/16 11:42 3 MLS/HR Potassium Chloride/Sodium Chloride 1,000 ml @ 250 mls/hr Q4H IV 10/01/16 06:00 10/01/16 15:19 DC 10/01/16 14:31 250 MLS/HR Famotidine (Pepcid Tab) 20 mg NOW STAT PO 10/01/16 06:41 10/01/16 06:42 DC 10/01/16 08:05 20 MG Heparin Sodium (Porcine) (Heparin Sq 5000 Unit/0.5ml) 5,000 unit Q8 SQ 10/01/16 14:00 10/31/16 13:59 10/02/16 06:21 5,000 UNIT Menthol (Nice Snow) 1 snow Q2H PRN PO 10/01/16 11:15 10/31/16 11:14 10/01/16 20:10 1 SNOW Lidocaine HCl/ Diphenhydramine HCl/Al Hydroxide/ Mg Hydroxide/ Glycerin/Barcode Q4H PRN MT 10/01/16 11:45 10/31/16 11:44 10/01/16 17:01 5 ML Miscellaneous Information (Dc Iv Insulin Infusion) 1 ea TODAY@1800 ONCE N/A 10/01/16 18:00 10/01/16 18:01 DC 10/01/16 18:05 1 EA Insulin Glargine (Lantus Solostar Pen) 42 unit NOW ONCE SC 10/01/16 16:00 10/01/16 16:01 DC 10/01/16 15:55 42 UNIT Insulin Aspart (novoLOG ASPART) ACHS SC 10/01/16 16:15 10/31/16 16:14 10/02/16 12:26 12 UNITS Assessment and Plan Assessment and Plan: This is a 50 y/o female with DMII, HTN who has been treated for DKA. Her electrolytes and anion gap are stable at this time. However, she continues to feel general malaise and we are unsure of what has triggered this event. DKA -Lantus 42 units qpm with sliding scale -Monitor electrolytes -A1C 10.9% -Blood cultures demonstrate no growth, urine culture pending -CXR normal -Zofran prn for nausea Abdominal Pain, Weight Loss -CT abdoment with IV and Oral contrast -GI Cocktail HTN -Continue home metoprolol -Continue Lisinopril -Continue aspirin GERD -Continue protonix -Continue famotidine -Magic swizzle prn Hypercholesterolemia -Continue home statin MDD/SUMIT -Continue cymbalta -continue Buspar -Trazodone pm Chronic Pain -Continue Soma, Nucynta Diet -Diabetic diet DVT prophylaxis: continue home heparin Continued [facility] stay due to: abnormal vital signs, multiple IV medications needed Discharge planning: uncertain
--- NOTE | 2016-10-02 14:11 | Progress Note ---
Subjective Date of Service: Oct 02, 2016. Subjective pt looks much improved, she continue to complain of epigastric abdominal pain and also notes some darker stools, she had initially no anemia noted on admission cbc, her DKA has corrected but she lacks any significant appetite, she has noted some outpt weight loss, has had multiple upper endoscopies in past for barrets and has recent colonoscopy without issue Problem List Medical Problems: (1) DKA (diabetic ketoacidoses) Status: Acute (2) Fever Status: Acute (3) Headache Status: Acute (4) Low back pain Status: Acute Review of Systems Constitutional: + weakness, + fatigue, No fever, No chills Respiratory: No cough, No sputum, No wheezing, No shortness of breath Cardiac: No chest pain, No edema Abdomen: + pain, No vomiting, No diarrhea, No constipation, No GI bleeding Musculoskeletal: + joint pain (neck and has known issues), + muscle pain Female : No dysuria, No urinary frequency Neurologic: No memory loss, No paralysis, No weakness Psychiatric: No depression symptoms, No anhedonism Objective Vital Signs Date Time Temp Pulse Resp B/P (MAP) Pulse Ox O2 Delivery O2 Flow Rate FiO2 10/02/16 12:30 Nasal Cannula 2.0 10/02/16 12:21 36.6 84 19 141/78 (99) 94 Nasal Cannula 2.0 10/02/16 08:20 100 Nasal Cannula 2.0 10/02/16 07:52 36.7 95 18 93/59 (70) 100 Nasal Cannula 2.0 10/02/16 04:10 Nasal Cannula 2.0 10/02/16 03:51 37.0 79 18 87/45 (59) 95 Room Air 10/02/16 00:15 96 Nasal Cannula 2.0 10/01/16 23:10 37.0 88 18 74/59 (64) 97 Nasal Cannula 2.0 10/01/16 20:20 96 Room Air 10/01/16 19:08 37.0 96 17 99/61 (74) 96 Room Air 10/01/16 16:20 Nasal Cannula 2.0 10/01/16 15:46 37.2 90 19 94/47 (63) 98 Nasal Cannula 2.0 Physical Exam General Appearance: WD/WN, + mild distress Eyes: PERRL, EOMI Neck: supple, no JVD Respiratory/Chest: chest non-tender, lungs clear, normal breath sounds Cardiovascular: regular rate, rhythm, no murmur Abdomen: normal bowel sounds, soft, + tenderness (epigastric) Extremities: no pedal edema, no calf tenderness 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: alert, oriented x 3 Laboratory Results Last 24 Hours Test 10/01/16 14:43 10/01/16 16:03 10/01/16 16:08 10/01/16 16:49 Bedside Glucose 127 mg/dl 83 mg/dl 76 mg/dl Venous Blood pH 7.28 Sodium Level 142 mmol/L Potassium Level 4.5 mmol/L Chloride Level 113 mmol/L Carbon Dioxide Level 21 mmol/L Anion Gap 8.0 mmol/L Blood Urea Nitrogen 25 mg/dl Creatinine 1.30 mg/dl Est Creatinine Clear Calc Drug Dose 56.2 ml/min Estimated GFR () 54.6 Estimated GFR (Non- 47.1 BUN/Creatinine Ratio 19.5 Random Glucose 92 mg/dl Calcium Level 7.4 mg/dl Phosphorus Level 2.2 mg/dl Magnesium Level 2.2 mg/dl Test 10/01/16 16:59 10/01/16 17:15 10/01/16 19:51 10/01/16 20:38 Bedside Glucose 83 mg/dl 97 mg/dl 281 mg/dl Venous Blood pH 7.32 Sodium Level 140 mmol/L Potassium Level 4.4 mmol/L Chloride Level 111 mmol/L Carbon Dioxide Level 20 mmol/L Anion Gap 9.0 mmol/L Blood Urea Nitrogen 25 mg/dl Creatinine 1.40 mg/dl Est Creatinine Clear Calc Drug Dose 52.2 ml/min Estimated GFR () 49.9 Estimated GFR (Non- 43.1 BUN/Creatinine Ratio 17.9 Random Glucose 305 mg/dl Calcium Level 7.1 mg/dl Phosphorus Level 1.8 mg/dl Magnesium Level 2.0 mg/dl Beta-Hydroxybutyric Acid 3.96 mg/dL Test 10/02/16 06:41 10/02/16 07:03 10/02/16 07:23 10/02/16 11:37 Bedside Glucose 48 mg/dl 58 mg/dl 147 mg/dl 222 mg/dl Assessment and Plan 50-year-old female with DKA, pH 7.21 on presentation, now resolved. persistent abdominal pain epigastric DKA: insulin drip started in the ER, has closed anion gap now transitioned to basal bolus with pharmacy help abdominal discomfort, will ct and evaluate consider gi evaluation Acute kidney injury: improved Chronic pain: s/p left BKA good control soma, nucynta Anxiety/Depression- Cymbalta 30 mg daily- Trazodone 50 mg HS for sleep Hypertension good control metoprolol XL 25 mg daily and lisinopril 2.5 mg daily Hyperlipidemia atorvastatin 80 mg daily GERD Nexium 40 mg BID and Pepcid 40 mg daily DVT prophylaxis:Heparin SQ Full code Continued [facility] stay due to: abnormal vital signs, multiple IV medications needed Discharge planning: uncertain
--- NOTE | 2016-10-02 15:29 | DIAGNOSTIC IMAGING REPORT ---
CT ABD/PELVIS IV AND ORAL CONT CLINICAL HISTORY: Weight loss, abdominal pain. Possible celiac disease. COMPARISON STUDY: None. TECHNIQUE: Following the IV administration of 92 mL of Optiray-320, CT scan of the abdomen and pelvis was performed from the lung bases to the proximal femurs. Images are reviewed in the axial, sagittal, and coronal planes. IV contrast was administered without complication. CT DOSE: 745.07 mGy.cm FINDINGS: Lower chest: There are minimal dependent atelectatic changes. There are trace bilateral pleural effusions Liver: The contrast-enhanced liver is normal in size, contour, and attenuation. There is no intrahepatic biliary ductal dilatation. The hepatic veins and portal veins are patent. Gallbladder: Surgically absent Spleen: There is an 8 mm splenic hypodensity likely cystic. Pancreas: Unremarkable. Adrenal glands: Unremarkable. Kidneys: There is symmetric renal cortical enhancement. The kidneys are normal in size without hydronephrosis. Bowel: There are no transition zones indicate bowel obstruction. There is no acute diverticulitis. There is no evidence of acute appendicitis. Peritoneum: There is no intraperitoneal free air or abdominal ascites. Vasculature: The abdominal aorta is normal in course and caliber. Adenopathy: Minimal prominence of upper mesenteric lymph nodes, likely reactive. Pelvic viscera: The bladder, and pelvic viscera are unremarkable. Skeletal structures: No destructive osseous lesions are seen. IMPRESSION: 1. No evidence of bowel obstruction. No evidence of free air 2. No evidence of acute diverticulitis. No evidence of acute appendicitis. 3. Trace bilateral pleural effusions 4. Slight prominence of the upper abdominal mesenteric lymph nodes. While this finding has been reported in celiac disease, it is by no means diagnostic Electronically signed by: Conrado Cha M.D. 10/02/2016 3:28 PM Dictated Date/Time: 10/02/2016 3:21 PM
[2016-10-02] MEDS ORDERED: OPTIRAY 320 IV PRN (15:30)
[2016-10-02] MEDS: ASPIRIN 81 MG ECTAB PO SCH (20:48)
[2016-10-02] MEDS: ATORVASTATIN 40 MG TAB PO SCH (20:49)
[2016-10-02] MEDS: FAMOTIDINE 20 MG TAB PO SCH (20:51)
[2016-10-02] MEDS: INSULIN GLARGINE SOLOSTAR 100 UNITS/ML 3 ML PEN SC SCH (20:58)
[2016-10-02] MEDS: TRAZODONE HCL 50 MG TAB PO SCH (20:59)
[2016-10-03] VITALS (13 sets, daily range): BP systolic 136–174; BP diastolic 84–98; PULSE 73–96; TEMP 36.7–37.2; O2SAT 95–100
[2016-10-03] MEDS: CARISOPRODOL 350 MG TAB PO PRN ×3 (00:24→17:57)
[2016-10-03] MEDS: TAPENTADOL HCL 50 MG TAB PO PRN ×4 (00:24→21:58)
[2016-10-03] MEDS: HEPARIN SOD 5000 UNIT/0.5 ML CARP SQ SCH ×3 (05:33→21:55)
[2016-10-03 05:58] LABS: BASO % 0.5 %; BASO ABS # 0.04 K/uL (0-0.2); COMPLETE YES; EOS % 2.2 %; HEMATOCRIT 35.4 % (37-47); IG% 0.1 %; LYMPH % 48.7 %; LYMPH ABS # 3.91 K/uL (1.2-3.4); MEAN CELL VOLUME 80.6 fL (80-100); MEAN CORPUSCULAR HEMOGLOBIN 24.4 pg (25-34); MEAN CORPUSCULAR HGB CONC 30.2 g/dl (32-36); MEAN PLATELET VOLUME 9.4 fL (7.4-10.4); MONO % 5.1 %; NEUT % 43.4 %; PLATELET COUNT 277 K/uL (130-400); RED BLOOD COUNT 4.39 M/uL (4.2-5.4); WHITE BLOOD COUNT 8.03 K/uL (4.8-10.8)
[2016-10-03 06:29] LABS: BUN/CREATININE RATIO 11.4 (10-20); CREATININE 1.1 mg/dl (0.60-1.20); PHOSPHORUS 2.8 mg/dl (2.5-4.9); POTASSIUM 3.9 mmol/L (3.5-5.1)
[2016-10-03 07:14] LABS: CALCIUM 8.2 mg/dl (8.5-10.1)
[2016-10-03] MEDS: LISINOPRIL 2.5 MG TAB PO SCH (08:25)
[2016-10-03] MEDS: METOPROLOL SUCC 25MG EXT REL TAB PO SCH (08:25)
[2016-10-03] MEDS: DOCUSATE SODIUM 100 MG CAP PO SCH ×2 (08:26→22:01)
[2016-10-03] MEDS: PANTOprazole SOD 40 MG TAB PO SCH ×2 (08:26→22:02)
[2016-10-03] MEDS: DULOXETINE HCL 60 MG CAP PO SCH (08:26)
[2016-10-03] MEDS: INSULIN ASPART 100 UNITS/ML 3 ML PEN SC SCH ×4 (08:32→21:54)
--- NOTE | 2016-10-03 12:37 | Medical Student: [facility] ---
Med Student Progress Note Date of Service Oct 03, 2016. Subjective Pt evaluation today including: conversation w/ patient, physical exam She has had no acute events overnight and has remained afebrile with stable VS , however, continues to complain of generalized malaise and fatigue. She feels ' wiped out' after ambulating to the toilet. She has not been ambulating the halls or eating her full meals. She just notes that she feels generally unwell, has no appetite, and has generalized epigastric pain. She also continues to complain of neck/back pain that is only somewhat relieved with pain medication. SHe notes that her stools have been darker lately, and her last stool was a ' dark brown.' Her CT with contrast yesterday was unremarkable, except for some slightly enlarged lymph nodes. GI cocktail did not alleviate or change her symptomatology. She notes no new symptoms. Review of Systems Constitutional: + weight loss, + fatigue, No fever, No chills, No sweats Respiratory: No cough, No sputum, No wheezing, No shortness of breath, No dyspnea on exertion Cardiac: No chest pain, No orthopnea Abdomen: + pain, + nausea, No vomiting, No diarrhea, No constipation Endo: + fatigue Skin: No rash Objective Vital Signs Date Time Temp Pulse Resp B/P (MAP) Pulse Ox O2 Delivery O2 Flow Rate FiO2 10/03/16 11:54 37.2 79 18 162/93 (116) 95 Room Air 10/03/16 08:00 99 Nasal Cannula 2.0 10/03/16 07:57 36.7 96 18 164/84 (110) 99 Nasal Cannula 2.0 10/03/16 04:03 36.9 84 18 141/90 (107) 100 Nasal Cannula 2.0 10/03/16 04:00 95 Nasal Cannula 10/03/16 00:01 95 Nasal Cannula 10/02/16 23:40 36.9 98 18 157/85 (109) 95 Room Air 10/02/16 20:10 36.4 91 18 150/92 (111) 96 Room Air 10/02/16 20:00 100 Room Air 10/02/16 16:00 100 Room Air 10/02/16 15:38 37.1 79 20 156/93 (114) 100 Nasal Cannula 2.0 Physical Exam General Appearance: WD/WN, no apparent distress Eyes: bilateral eyes normal inspection ENT: pharynx normal Neck: no adenopathy, thyroid normal, no JVD Respiratory/Chest: chest non-tender, lungs clear, normal breath sounds, no respiratory distress, no accessory muscle use Cardiovascular: regular rate, rhythm, no edema Abdomen: normal bowel sounds, non tender, soft, no organomegaly Extremities: normal range of motion, non-tender, normal inspection 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: alert, normal mood/affect, oriented x 3 Skin: normal color, warm/dry Lymphatic: no adenopathy Laboratory Results Last 24 Hours Test 10/02/16 15:49 10/02/16 20:13 10/03/16 05:24 10/03/16 06:23 Bedside Glucose 75 mg/dl 119 mg/dl 93 mg/dl White Blood Count 8.03 K/uL Red Blood Count 4.39 M/uL Hemoglobin 10.7 g/dL Hematocrit 35.4 % Mean Corpuscular Volume 80.6 fL Mean Corpuscular Hemoglobin 24.4 pg Mean Corpuscular Hemoglobin Concent 30.2 g/dl Platelet Count 277 K/uL Mean Platelet Volume 9.4 fL Neutrophils (%) (Auto) 43.4 % Lymphocytes (%) (Auto) 48.7 % Monocytes (%) (Auto) 5.1 % Eosinophils (%) (Auto) 2.2 % Basophils (%) (Auto) 0.5 % Neutrophils # (Auto) 3.48 K/uL Lymphocytes # (Auto) 3.91 K/uL Monocytes # (Auto) 0.41 K/uL Eosinophils # (Auto) 0.18 K/uL Basophils # (Auto) 0.04 K/uL RDW Standard Deviation 39.3 fL RDW Coefficient of Variation 13.3 % Immature Granulocyte % (Auto) 0.1 % Immature Granulocyte # (Auto) 0.01 K/uL Sodium Level 145 mmol/L Potassium Level 3.9 mmol/L Chloride Level 110 mmol/L Carbon Dioxide Level 31 mmol/L Anion Gap 4.0 mmol/L Blood Urea Nitrogen 13 mg/dl Creatinine 1.10 mg/dl Est Creatinine Clear Calc Drug Dose 66.3 ml/min Estimated GFR () 66.8 Estimated GFR (Non- 57.7 BUN/Creatinine Ratio 11.4 Random Glucose 109 mg/dl Calcium Level 8.2 mg/dl Phosphorus Level 2.8 mg/dl Magnesium Level 2.0 mg/dl Test 6/16/17 11:07 Bedside Glucose 173 mg/dl Medications Medications Administered Medications (Trade) Dose Ordered Sig/Nichol Route Start Time Stop Time Status Last Admin Dose Admin Ondansetron HCl (Zofran Inj) 4 mg NOW STAT IV 10/01/16 01:30 10/01/16 01:32 DC 10/01/16 01:39 4 MG Sodium Chloride 1,000 ml @ 999 mls/hr Q1H1M STAT IV 10/01/16 01:30 10/01/16 02:30 DC 10/01/16 01:37 999 MLS/HR Sodium Chloride 1,000 ml @ 250 mls/hr Q4H STAT IV 10/01/16 01:30 10/01/16 05:29 DC 10/01/16 02:30 250 MLS/HR Miscellaneous (Insulin Protocol Dka Goal Range) 1 ea ONE ONCE N/A 10/01/16 02:15 10/01/16 02:21 DC 10/01/16 02:49 1 EA Insulin Human Regular 3.5 unit/ Syringe 3.5 ml @ 1 mls/min NOW STAT IV 10/01/16 02:22 10/01/16 02:25 DC 10/01/16 02:42 1 MLS/MIN Insulin Human Regular 250 units/ Sodium Chloride 252.5 ml @ 0 mls/hr NOW STAT IV 10/01/16 02:22 10/01/16 02:23 DC 10/01/16 02:41 3.3 MLS/HR Potassium Chloride/Sodium Chloride 1,000 ml @ 0 mls/hr Q0M STAT IV 10/01/16 02:38 10/01/16 02:40 DC 10/01/16 03:03 500 MLS/HR Fentanyl Citrate (Fentanyl Inj) 75 mcg NOW STAT IV 10/01/16 03:16 10/01/16 03:17 DC 10/01/16 03:38 75 MCG Insulin Aspart (novoLOG ASPART) SLIDING SCALE [facility] 10/01/16 08:00 10/01/16 15:11 DC 10/01/16 11:41 6 UNITS Aspirin (Ecotrin Tab) 81 mg QPM PO 10/01/16 21:00 10/31/16 20:59 10/02/16 20:48 81 MG Atorvastatin Calcium (Lipitor Tab) 80 mg HS PO 10/01/16 21:00 10/31/16 20:59 10/02/16 20:49 80 MG Carisoprodol (Soma Tab) 350 mg TID PRN PO 10/01/16 04:30 10/31/16 04:29 10/03/16 08:25 350 MG Docusate Sodium (coLACE CAP) 100 mg BID PO 10/01/16 09:00 10/31/16 08:59 10/03/16 08:26 100 MG Duloxetine HCl (Cymbalta Cap) 60 mg DAILY PO 10/01/16 09:00 10/31/16 08:59 10/03/16 08:26 60 MG Famotidine (Pepcid Tab) 40 mg HS PO 10/01/16 21:00 10/31/16 20:59 10/02/16 20:51 40 MG Lisinopril (Zestril Tab) 2.5 mg QAM PO 10/01/16 09:00 10/31/16 08:59 10/03/16 08:25 2.5 MG Metoprolol Succinate (Toprol Xl Tab) 25 mg DAILY PO 10/01/16 09:00 10/31/16 08:59 10/03/16 08:25 25 MG Tapentadol (Nucynta Tab) 50 mg Q4H PRN PO 10/01/16 04:30 10/15/16 04:29 10/03/16 08:25 50 MG Trazodone HCl (Desyrel Tab) 50 mg HS PO 10/01/16 21:00 10/31/16 20:59 10/02/16 20:59 50 MG Buspirone HCl (Buspar Tab) 10 mg BID PO 10/01/16 09:00 10/31/16 08:59 10/03/16 08:26 10 MG Pantoprazole Sodium (Protonix Tab) 40 mg BID PO 10/01/16 09:00 10/31/16 08:59 10/03/16 08:26 40 MG Insulin Human Regular 250 units/ Sodium Chloride 252.5 ml @ 0 mls/hr DAILY@1130 IV 10/01/16 11:30 10/01/16 18:01 DC 10/01/16 11:42 3 MLS/HR Potassium Chloride/Sodium Chloride 1,000 ml @ 250 mls/hr Q4H IV 10/01/16 06:00 10/01/16 15:19 DC 10/01/16 14:31 250 MLS/HR Famotidine (Pepcid Tab) 20 mg NOW STAT PO 10/01/16 06:41 10/01/16 06:42 DC 10/01/16 08:05 20 MG Heparin Sodium (Porcine) (Heparin Sq 5000 Unit/0.5ml) 5,000 unit Q8 SQ 10/01/16 14:00 10/31/16 13:59 10/03/16 05:33 5,000 UNIT Menthol (Nice Snow) 1 snow Q2H PRN PO 10/01/16 11:15 10/31/16 11:14 10/01/16 20:10 1 SNOW Lidocaine HCl/ Diphenhydramine HCl/Al Hydroxide/ Mg Hydroxide/ Glycerin/Barcode Q4H PRN MT 10/01/16 11:45 10/31/16 11:44 10/01/16 17:01 5 ML Miscellaneous Information (Dc Iv Insulin Infusion) 1 ea TODAY@1800 ONCE N/A 10/01/16 18:00 10/01/16 18:01 DC 10/01/16 18:05 1 EA Insulin Glargine (Lantus Solostar Pen) 42 unit NOW ONCE SC 10/01/16 16:00 10/01/16 16:01 DC 10/01/16 15:55 42 UNIT Insulin Glargine (Lantus Solostar Pen) 42 unit HS SC 10/02/16 21:00 11/01/16 20:59 10/02/16 20:58 42 UNIT Insulin Aspart (novoLOG ASPART) ACHS SC 10/01/16 16:15 10/31/16 16:14 10/03/16 08:32 2 UNITS Al Hydroxide/Mg Hydroxide/ Lidocaine HCl/ Barcode TODAY@1300 ONCE PO 10/02/16 13:00 10/02/16 13:01 DC 10/02/16 13:37 30 ML Assessment and Plan Assessment and Plan: Assessment and Plan: This is a 50 y/o female with DMII, HTN who has been treated for DKA. Her electrolytes and anion gap are stable at this time. However, she continues to feel general malaise. DKA -Lantus 42 units qpm with sliding scale -Monitor electrolytes -A1C 10.9% -Blood cultures demonstrate no growth, urine culture being recultured -CXR normal -Zofran prn for nausea Abdominal Pain, Weight Loss -CT abdoment with IV and Oral contrast unremarkable -GI Cocktail did not alleviate discomfort -GI Consulted HTN -Continue home metoprolol -Continue Lisinopril -Continue aspirin GERD -Continue protonix -Continue famotidine -Magic swizzle prn Hypercholesterolemia -Continue home statin MDD/SUMIT -Continue cymbalta -continue Buspar -Trazodone pm Chronic Pain -Continue Soma, Nucynta Diet -Diabetic diet Dispo -Does not meet tele criteria at this time, transfer to [facility] -encourage ambulation and incentive spirometry use DVT prophylaxis: continue home heparin Continued [facility] stay due to: abnormal vital signs, multiple IV medications needed Discharge planning: uncertain
--- NOTE | 2016-10-03 15:06 | Pharmacy Progress Note ---
Glycemic: Assessment & Plan Date of Service Oct 03, 2016. Assessment & Plan Outpatient Anti-diabetic Regimen: * Lantus 42 units qPM * Novolog sliding scale * Victoza 1.8 mg qAM * HbA1c: 10.9% (10/01/16) ASSESSMENT: * Patient is a 50yo diabetic female admitted with DKA, initially treated with IV insulin. * Insulin gtt was stopped and home Lantus was resumed, along with some aggressive correctional insulin. * Patient was hypoglycemic yesterday morning, assumably due to receiving a heavy dose of Novolog the night before. * BSG was 305 at bedtime, which required a fairly large dose of correction. * Novolog parameters were loosened slightly yesterday and home Lantus dose was continued, with more reasonable BSGs today. * Current A1c indicates poor glycemic control as an outpatient. In a 50yo healthy patient, would prefer to see an A1c closer to 6%. * Might consider adjustments in outpatient regimen on discharge. PLAN FOR INPATIENT GLYCEMIC CONTROL: * Holding outpatient oral diabetes medications * Basal insulin with LANTUS 42 units SQ qHS * Correctional Insulin with NOVOLOG per scale ACHS or * Goal Range: Low 110 mg/dL - High 140 mg/dL * Correction Factor: 25 mg/dL/unit * Nutritional / Prandial insulin per carb ratio of 1 unit per 8 grams CHO consumed * Please note that the plan above was derived based on current level of insulin resistance and hospital stress. These recommendations are appropriate for inpatient admission only. Plan of care upon discharge will need to be reassessed to avoid potential outpatient hypo/hyperglycemia. Thank you.
--- NOTE | 2016-10-03 15:58 | Progress Note ---
Subjective Date of Service: Oct 03, 2016. Subjective Pt's DKA and glucose issues seem to be controlled, she however states that she just does not feel well and that she has no appetite, still with persistent epigastric pain not too reproducible on exam nor relieved with GI cocktail. Has previously been seen by DR Ha and will consult today as given pain and c/ o dark stools, I believe drop in hgb is dilutional but will follow Problem List Medical Problems: (1) DKA (diabetic ketoacidoses) Status: Acute (2) Fever Status: Acute (3) Headache Status: Acute (4) Low back pain Status: Acute Review of Systems Constitutional: + weakness, + fatigue, No fever, No chills Respiratory: No cough, No shortness of breath, No dyspnea on exertion Cardiac: No chest pain, No orthopnea, No edema Abdomen: + pain, + nausea, + vomiting, + problem reported Female : No dysuria, No urinary frequency Psychiatric: + depression symptoms, + anxiety Endo: + fatigue, + excessive thirst, + excessive urination Objective Vital Signs Date Time Temp Pulse Resp B/P (MAP) Pulse Ox O2 Delivery O2 Flow Rate FiO2 10/03/16 15:18 36.9 78 20 174/98 (123) 97 Room Air 10/03/16 13:06 95 Room Air 10/03/16 12:53 37.2 79 18 95 2.0 10/03/16 11:54 37.2 79 18 162/93 (116) 95 Room Air 10/03/16 08:00 99 Nasal Cannula 2.0 10/03/16 07:57 36.7 96 18 164/84 (110) 99 Nasal Cannula 2.0 10/03/16 04:03 36.9 84 18 141/90 (107) 100 Nasal Cannula 2.0 10/03/16 04:00 95 Nasal Cannula 10/03/16 00:01 95 Nasal Cannula 10/02/16 23:40 36.9 98 18 157/85 (109) 95 Room Air 10/02/16 20:10 36.4 91 18 150/92 (111) 96 Room Air 10/02/16 20:00 100 Room Air 10/02/16 16:00 100 Room Air Physical Exam General Appearance: WD/WN, + mild distress Eyes: PERRL, EOMI Neck: supple, no JVD Respiratory/Chest: chest non-tender, lungs clear, normal breath sounds, no accessory muscle use Cardiovascular: regular rate, rhythm, no murmur Abdomen: normal bowel sounds, soft, + guarding, + tenderness Extremities: no pedal edema, no calf tenderness 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: alert, oriented x 3 Laboratory Results Last 24 Hours Test 10/02/16 20:13 10/03/16 05:24 10/03/16 06:23 10/03/16 11:07 Bedside Glucose 119 mg/dl 93 mg/dl 173 mg/dl White Blood Count 8.03 K/uL Red Blood Count 4.39 M/uL Hemoglobin 10.7 g/dL Hematocrit 35.4 % Mean Corpuscular Volume 80.6 fL Mean Corpuscular Hemoglobin 24.4 pg Mean Corpuscular Hemoglobin Concent 30.2 g/dl Platelet Count 277 K/uL Mean Platelet Volume 9.4 fL Neutrophils (%) (Auto) 43.4 % Lymphocytes (%) (Auto) 48.7 % Monocytes (%) (Auto) 5.1 % Eosinophils (%) (Auto) 2.2 % Basophils (%) (Auto) 0.5 % Neutrophils # (Auto) 3.48 K/uL Lymphocytes # (Auto) 3.91 K/uL Monocytes # (Auto) 0.41 K/uL Eosinophils # (Auto) 0.18 K/uL Basophils # (Auto) 0.04 K/uL RDW Standard Deviation 39.3 fL RDW Coefficient of Variation 13.3 % Immature Granulocyte % (Auto) 0.1 % Immature Granulocyte # (Auto) 0.01 K/uL Sodium Level 145 mmol/L Potassium Level 3.9 mmol/L Chloride Level 110 mmol/L Carbon Dioxide Level 31 mmol/L Anion Gap 4.0 mmol/L Blood Urea Nitrogen 13 mg/dl Creatinine 1.10 mg/dl Est Creatinine Clear Calc Drug Dose 66.3 ml/min Estimated GFR () 66.8 Estimated GFR (Non- 57.7 BUN/Creatinine Ratio 11.4 Random Glucose 109 mg/dl Calcium Level 8.2 mg/dl Phosphorus Level 2.8 mg/dl Magnesium Level 2.0 mg/dl Assessment and Plan 50-year-old female with DKA, pH 7.21 on presentation, now resolved. persistent abdominal pain epigastric DKA: stable after transitioned to basal bolus with pharmacy help abdominal discomfort, CT does not show any issues, did have EGD in last few years and colo negative 2010. also not helped with GI cocktail, continue ppi and H2 Anemia, did drop > 2 gms but pt was volume contracted on presentation and hydrated, doubt acute GI bleed Acute kidney injury: improved Chronic pain: good contorl with chromic pain from left BKA soma, nucynta Anxiety/Depression- seems depressed, Cymbalta 30 mg daily- Trazodone 50 mg HS for sleep Hypertension controlled metoprolol XL 25 mg daily and lisinopril 2.5 mg daily Hyperlipidemia atorvastatin 80 mg daily GERD protonix BID and Pepcid 40 mg daily DVT prophylaxis:Heparin SQ Full code Continued [facility] stay due to: abnormal vital signs, multiple IV medications needed Discharge planning: uncertain
--- NOTE | 2016-10-03 16:39 | GASTROINTESTINAL CONSULTATION ---
DATE OF CONSULTATION: 10/03/2016 AGE: 50. SEX: Female. RACE: . ATTENDING PHYSICIAN: Dr. Johnson. CONSULTING PHYSICIAN: Dr. Ha. REASON FOR CONSULTATION: Abdominal pain and weight loss. HISTORY OF PRESENT ILLNESS: Chiquis Isabel is a 50-year-old female. She is well known to our service as she has had an extensive GI workup in the past, including a gastric emptying study on 07/10/2011, which was normal; an upper endoscopy most recently on 08/21/2014, which was unremarkable with the exception of a small hiatal hernia and a colonoscopy in 2010, which showed external hemorrhoids, but was otherwise normal to the terminal ileum. She presented to the Department of Emergency Medicine on October 01 and was subsequently found to have DKA. She was found to have a white blood cell count at the time of 25.09 with a hemoglobin and hematocrit of 13.6 and 41.7 and a platelet count of 453. Her blood glucose at that time was 645. She was subsequently treated for DKA with improvement in her symptoms, though did complain of some abdominal discomfort and questionable black stools. Her H&H did drop from 13.6 to 10.7 and 41.7 to 35.4; however, she did receive aggressive fluid hydration secondary to DKA. The patient herself states that she has not had any black stools and is on outpatient Protonix therapy 40 mg p.o. b.i.d. At the time that I saw the patient, she denied any hematemesis, melena, or hematochezia. She further denied any dysphagia or odynophagia. She did undergo a CT scan of her abdomen and pelvis on October 02 secondary to the aforementioned pain and was only showing a slight prominence of upper abdominal mesenteric lymph nodes. She did continue to complain of 3/10 midepigastric abdominal pain, nonradiating with no alleviating or exacerbating factors at present time. She denied any fevers, chills, jaundice, acholic stools, dark urine, pruritus or other complaints including nausea or vomiting. PAST MEDICAL HISTORY: Positive for type 2 diabetes mellitus, hypertension, diabetic neuropathy, generalized anxiety disorder, hyperlipidemia, and major depressive disorder. PAST SURGICAL HISTORY: Includes BKA. ALLERGIES: DOXYCYCLINE, FLUCONAZOLE, HYDROMORPHONE, LATEX, MORPHINE, AND PENICILLINS. MEDICATIONS AT PRESENT: Include Lantus 42 units subQ at bedtime, aspirin 81 mg p.o. q.p.m., Lipitor 80 mg p.o. at bedtime, Pepcid 40 mg p.o. at bedtime, Desyrel 50 mg p.o. at bedtime, sliding scale insulin, heparin 5,000 units subQ q. 8 hours, Colace 100 mg p.o. b.i.d., Cymbalta 60 mg p.o. daily, Zestril 2.5 mg p.o. q.a.m., Toprol-XL 25 mg p.o. daily, BuSpar 10 mg p.o. b.i.d., Protonix 40 mg p.o. b.i.d., Zofran 4 mg IV q. 6 p.r.n. nausea, MiraLax 17 grams p.o. daily p.r.n. constipation, Soma 350 mg p.o. t.i.d. p.r.n. back pain, and Nucynta 50 mg p.o. q. 4 hours p.r.n. pain. SOCIAL HISTORY: She is single. She denies alcohol use. She does have occasional marijuana. She does smoke a pack of cigarettes per day. FAMILY HISTORY: Negative for GI malignancy or inflammatory bowel disease. REVIEW OF SYSTEMS: Negative 10-system review other than pertinent positives listed in the HPI. PHYSICAL EXAMINATION: VITAL SIGNS: Temp 36.9, pulse 78, respirations 20, blood pressure 174/98, and pulse ox 97% on room air. GENERAL: She is chronic ill appearing, cooperative, in no acute distress. HEAD: Normocephalic and atraumatic. EYES: Pupils equally round. Extraocular muscles are intact. ENT: External evaluation of ears and nose are normal. Oropharynx is clear. NECK: Soft and supple. CHEST: Clear to auscultation bilaterally. CARDIOVASCULAR SYSTEM: Regular rate and rhythm. ABDOMEN: Soft. Tender in the mid epigastric area and nondistended, positive bowel sounds. There is no hepatosplenomegaly or stigmata of chronic liver disease. EXTREMITIES: No cyanosis or edema. Left BKA. LABORATORY STUDIES AND RADIOGRAPHIC STUDIES: Were reviewed in the HPI. IMPRESSION: A 50-year-old female with admission for diabetic ketoacidosis with epigastric abdominal pain and anemia. PLAN: At the present time, I believe that her symptoms are related to her DKA. I believe that when she came in, she was severely dehydrated and her H&H dropped via dilution from IV fluids. I do not believe that the patient is having an acute GI bleed at this time. I would recommend continuing on Protonix 40 mg p.o. b.i.d. I would recommend that she follows up with our office as an outpatient and with her primary care physician to recheck her H&H in 1 week's time. If she has any episodes of overt GI bleeding, we will reevaluate her. Dr. Marina Bone is covering our service over the weekend. If there are any questions, please direct questions to her. Once again, thanks for allowing me to participate in the care of this patient. If you have any further questions, please do not hesitate in contacting me.
[2016-10-03] MEDS: ONDANSETRON INJ 2 MG/ML 2 ML VIAL IV PRN (17:58)
[2016-10-03] MEDS: INSULIN GLARGINE SOLOSTAR 100 UNITS/ML 3 ML PEN SC SCH (21:55)
[2016-10-03] MEDS: TRAZODONE HCL 50 MG TAB PO SCH (22:01)
[2016-10-03] MEDS: ASPIRIN 81 MG ECTAB PO SCH (22:01)
[2016-10-03] MEDS: FAMOTIDINE 20 MG TAB PO SCH (22:02)
[2016-10-03] MEDS: ATORVASTATIN 40 MG TAB PO SCH (22:02)
[2016-10-04] MEDS: HEPARIN SOD 5000 UNIT/0.5 ML CARP SQ SCH ×3 (06:39→21:15)
[2016-10-04 07:52] VITALS: BP 146/80; PULSE 70; TEMP 36.9; O2SAT 95
[2016-10-04] MEDS: TAPENTADOL HCL 50 MG TAB PO PRN ×3 (08:08→18:40)
[2016-10-04] MEDS: METOPROLOL SUCC 25MG EXT REL TAB PO SCH (08:09)
[2016-10-04] MEDS: LISINOPRIL 2.5 MG TAB PO SCH (08:09)
[2016-10-04] MEDS: DULOXETINE HCL 60 MG CAP PO SCH (08:09)
[2016-10-04] MEDS: DOCUSATE SODIUM 100 MG CAP PO SCH ×2 (08:09→21:06)
[2016-10-04] MEDS: PANTOprazole SOD 40 MG TAB PO SCH ×2 (08:10→21:08)
[2016-10-04] MEDS: INSULIN ASPART 100 UNITS/ML 3 ML PEN SC SCH ×4 (08:16→21:15)
[2016-10-04 08:18] LABS: BUN/CREATININE RATIO 12.8 (10-20); CREATININE 1.1 mg/dl (0.60-1.20); MAGNESIUM 1.8 mg/dl (1.8-2.4); PHOSPHORUS 3.5 mg/dl (2.5-4.9); POTASSIUM 3.3 mmol/L (3.5-5.1)
[2016-10-04 08:30] LABS: CALCIUM 8.8 mg/dl (8.5-10.1)
[2016-10-04] MEDS: ONDANSETRON INJ 2 MG/ML 2 ML VIAL IV PRN (09:12)
[2016-10-04 09:17] VITALS: O2SAT 95
[2016-10-04] MEDS ORDERED: POTASSIUM CHLORIDE 20 MEQ TABCR PO ONE (09:45)
[2016-10-04] MEDS: CARISOPRODOL 350 MG TAB PO PRN (10:04)
[2016-10-04 11:40] VITALS: BP 178/88; PULSE 58; TEMP 37.2; O2SAT 96
--- NOTE | 2016-10-04 12:28 | Pharmacy Progress Note ---
Glycemic Control: Progress Nt Date of Service Oct 04, 2016. Scope Glycemic Pharmacist consulted by on 10/01/16 for glycemic control and to write orders per [facility] inpatient glycemic control protocol. Objective Accuchecks BSG (last 24hrs): Test 10/03/16 17:17 10/03/16 20:25 10/04/16 07:10 10/04/16 07:18 Bedside Glucose 161 mg/dl (70-90) 178 mg/dl (70-90) 77 mg/dl (70-90) Random Glucose 74 mg/dl (70-99) Test 10/04/16 11:24 Bedside Glucose 184 mg/dl (70-90) Laboratory Data (last 24hrs) Test 10/04/16 07:10 Anion Gap 9.0 mmol/L BUN/Creatinine Ratio 12.8 Blood Urea Nitrogen 14 mg/dl Creatinine 1.10 mg/dl Potassium Level 3.3 mmol/L Sodium Level 142 mmol/L HbA1c: Test 10/01/16 00:31 Hemoglobin A1c 10.9 % (4.5-5.6) H Recent Pertinent Medications Outpatient Anti-diabetic Regimen: * Lantus 42 units qPM * Novolog sliding scale * Victoza 1.8 mg qAM * HbA1c: 10.9% (10/01/16) Assessment & Plan ASSESSMENT: * ADA & AACE recommend a goal blood sugar range 140-180 mg/dl for the majority of critically ill & non-critically ill patients. However, more stringent targets may be selected in individual cases. From 10/03/16 * Patient is a 50yo diabetic female admitted with DKA, initially treated with IV insulin. * Insulin gtt was stopped and home Lantus was resumed, along with some aggressive correctional insulin. * Patient was hypoglycemic yesterday morning, assumably due to receiving a heavy dose of Novolog the night before. * BSG was 305 at bedtime, which required a fairly large dose of correction. * Novolog parameters were loosened slightly yesterday and home Lantus dose was continued, with more reasonable BSGs today. * Current A1c indicates poor glycemic control as an outpatient. In a 50yo healthy patient, would prefer to see an A1c closer to 6%. * Might consider adjustments in outpatient regimen on discharge. 10/04/16: * Current inpatient glycemic regimen is heavy on basal coverage. Today's FBG was 77mg/dl. Therefore, will decrease Lantus 20%. * Continue Novolog parameters which appear to be correcting BSGs to goal range throughout the day. PLAN FOR INPATIENT GLYCEMIC CONTROL: * Decrease Lantus to 34 units SQ qHS * Novolog ACHS * Continue correction factor 25 mg/dl/unit * Continue carb ratio 1 unit per 8 grams CHO consumed * Continue goal range Low 110 mg/dL - High 140 mg/dL * Please note that the plan above was derived based on current level of insulin resistance and hospital stress. These recommendations are appropriate for inpatient admission only. Plan of care upon discharge will need to be reassessed to avoid potential outpatient hypo/hyperglycemia. Thank you.
--- NOTE | 2016-10-04 15:06 | Progress Note ---
Subjective Date of Service: Oct 04, 2016. Subjective today pt states she does not feel ready to go home and is primarily concerned about her abdominal pain, this pain is reproduceable and in the upper abdomen midline and there maybe a small soft are in linea alba that could be from rectus sheath issue, she cannot recall specific event but thinks this is present for the last 2 months, was also seem by Gastroenterology and no further testing is recommended Problem List Medical Problems: (1) DKA (diabetic ketoacidoses) Status: Acute (2) Fever Status: Acute (3) Headache Status: Acute (4) Low back pain Status: Acute Review of Systems Constitutional: + weakness, No fever, No chills, No fatigue Respiratory: No cough, No shortness of breath Cardiac: No chest pain, No edema Abdomen: + pain, + nausea, No vomiting, No diarrhea, No constipation Female : No dysuria, No urinary frequency Neurologic: + weakness, No memory loss, No paralysis Psychiatric: + depression symptoms, + anxiety, No anhedonism Objective Vital Signs Date Time Temp Pulse Resp B/P (MAP) Pulse Ox O2 Delivery O2 Flow Rate FiO2 10/04/16 11:40 37.2 58 12 178/88 (118) 96 Room Air 10/04/16 09:17 95 Room Air 10/04/16 08:00 Room Air 10/04/16 07:52 36.9 70 16 146/80 (102) 95 Room Air 10/04/16 00:00 Room Air 10/03/16 23:09 37.0 78 18 136/89 (105) 97 Room Air 10/03/16 21:46 73 159/89 (112) 10/03/16 19:35 166/95 (118) 10/03/16 16:00 97 Room Air 10/03/16 15:18 36.9 78 20 174/98 (123) 97 Room Air Physical Exam General Appearance: WD/WN, + mild distress Eyes: PERRL, EOMI Neck: supple, no JVD Respiratory/Chest: chest non-tender, lungs clear, normal breath sounds Cardiovascular: regular rate, rhythm, no murmur Abdomen: soft, + guarding, + tenderness Extremities: no pedal edema, no calf tenderness 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: alert, oriented x 3 Skin: normal color, warm/dry, no rash Laboratory Results Last 24 Hours Test 10/03/16 17:17 6/16/17 20:25 10/04/16 07:10 10/04/16 07:18 Bedside Glucose 161 mg/dl 178 mg/dl 77 mg/dl Sodium Level 142 mmol/L Potassium Level 3.3 mmol/L Chloride Level 102 mmol/L Carbon Dioxide Level 31 mmol/L Anion Gap 9.0 mmol/L Blood Urea Nitrogen 14 mg/dl Creatinine 1.10 mg/dl Est Creatinine Clear Calc Drug Dose 66.3 ml/min Estimated GFR () 66.8 Estimated GFR (Non- 57.7 BUN/Creatinine Ratio 12.8 Random Glucose 74 mg/dl Calcium Level 8.8 mg/dl Phosphorus Level 3.5 mg/dl Magnesium Level 1.8 mg/dl Test 10/04/16 11:24 Bedside Glucose 184 mg/dl Assessment and Plan 50-year-old female with DKA, pH 7.21 on presentation, now resolved. persistent abdominal pain epigastric DKA: stable after transitioned to basal bolus with pharmacy help abdominal discomfort, CT does not show any issues, did have EGD in last few years and colo negative 2010. also not helped with GI cocktail, very reproducible and point tender, consideration of myofascial pain and possible ventral hernia, will add Neurontin to Nucynta and continue ppi and H2. may benefit from outpt pain management appointment, she is on many small doses of medications and her overall list may need addressed Anemia, dropped > 2 gms but pt was volume contracted on presentation and hydrated, doubt acute GI bleed, no testing recommended by GI med Acute kidney injury: improved check 10/05 Chronic pain: good control with chromic pain from left BKA since abdominal pain has worsened will increase nucynta Anxiety/Depression- seems depressed, Cymbalta 30 mg daily- Buspar, Trazodone 50 mg HS for sleep, does not want additional meds Hypertension controlled metoprolol XL 25 mg daily and lisinopril 2.5 mg daily Hyperlipidemia atorvastatin 80 mg daily DVT prophylaxis:Heparin SQ Full code Continued [facility] stay due to: abnormal vital signs, multiple IV medications needed Discharge planning: uncertain
[2016-10-04 15:45] VITALS: BP 158/76; PULSE 74; TEMP 37.2; O2SAT 95
[2016-10-04] MEDS: GABAPENTIN 300 MG CAP PO SCH ×2 (16:15→21:03)
[2016-10-04] MEDS ORDERED: INSULIN GLARGINE SOLOSTAR 100 UNITS/ML 3 ML PEN SC SCH (21:00)
[2016-10-04] MEDS: ATORVASTATIN 40 MG TAB PO SCH (21:06)
[2016-10-04] MEDS: ASPIRIN 81 MG ECTAB PO SCH (21:07)
[2016-10-04] MEDS: TRAZODONE HCL 50 MG TAB PO SCH (21:07)
[2016-10-04] MEDS: FAMOTIDINE 20 MG TAB PO SCH (21:08)
[2016-10-05] MEDS: TAPENTADOL HCL 50 MG TAB PO PRN ×2 (04:08→10:20)
[2016-10-05] MEDS: HEPARIN SOD 5000 UNIT/0.5 ML CARP SQ SCH (06:23)
[2016-10-05] MEDS: PANTOprazole SOD 40 MG TAB PO SCH (07:49)
[2016-10-05] MEDS: DOCUSATE SODIUM 100 MG CAP PO SCH (07:49)
[2016-10-05] MEDS: DULOXETINE HCL 60 MG CAP PO SCH (07:49)
[2016-10-05] MEDS: LISINOPRIL 2.5 MG TAB PO SCH (07:50)
[2016-10-05 07:51] VITALS: BP 129/72; PULSE 72; TEMP 36.7; O2SAT 92
[2016-10-05] MEDS: METOPROLOL SUCC 25MG EXT REL TAB PO SCH (07:51)
[2016-10-05] MEDS: GABAPENTIN 300 MG CAP PO SCH (07:53)
[2016-10-05 08:00] LABS: HEMATOCRIT 36.9 % (37-47); MEAN CELL VOLUME 79.9 fL (80-100); MEAN CORPUSCULAR HEMOGLOBIN 25.5 pg (25-34); MEAN PLATELET VOLUME 9.6 fL (7.4-10.4); PLATELET COUNT 285 K/uL (130-400); RED BLOOD COUNT 4.62 M/uL (4.2-5.4); WHITE BLOOD COUNT 7.49 K/uL (4.8-10.8)
[2016-10-05 08:23] LABS: BUN/CREATININE RATIO 13.7 (10-20); CREATININE 1.1 mg/dl (0.60-1.20)
[2016-10-05] MEDS: INSULIN ASPART 100 UNITS/ML 3 ML PEN SC SCH ×2 (08:54→12:25)
[2016-10-05] MEDS: ONDANSETRON INJ 2 MG/ML 2 ML VIAL IV PRN (09:02)
[2016-10-05] MEDS ORDERED: NCY50 PO (10:35)
--- NOTE | 2016-10-05 10:36 | Discharge Instructions ---
Discharge Instructions Date of Service Oct 05, 2016. Admission Reason for Admission: DKA Discharge Discharge Diagnosis / Problem: diabetic keto acidosis, abdominal pain Discharge Goals Goal(s): Diagnostic testing, Therapeutic intervention Activity Recommendations Activity Limitations: resume your previous activity . Current Hospital Diet Patient's current hospital diet: Diabetes Type 2 Diet Discharge Diet Recommended Diet: Diabetes Type 1 Diet Pending Studies Studies pending at discharge: no Laboratory Results Hemoglobin A1c Test 10/01/16 00:31 Range/Units Estimated Average Glucose 266 mg/dl Hemoglobin A1c 10.9 H 4.5-5.6 % Medical Emergencies . Who to Call and When: Medical Emergencies: If at any time you feel your situation is an emergency, please call 911 immediately. . Non-Emergent Contact Non-Emergency issues call your: Primary Care Provider, Specialist (pain management) . . "Provider Documentation" section prepared by Moise Johnson. . VTE Core Measure Inpt VTE Proph given/why not?: Unfractionated heparin SQ
[2016-10-05] MEDS ORDERED: NRN300 PO (10:53)
[2016-10-05 11:03] VITALS: BP 129/72; PULSE 72; TEMP 36.7; O2SAT 92
--- NOTE | 2016-10-05 13:35 | Discharge Summary ---
Discharge Summary Date of Service Oct 05, 2016. Discharge Summary Admission Date: Oct 01, 2016 at 04:27 Discharge Date: Oct 05, 2016 Discharge Disposition: Home Principal Diagnosis: dka, abdominal pain Immunizations: Have You Had Influenza Vaccine: Yes Influenza Vaccine Date: Jan 21, 2011 History of Tetanus Vaccine?: Yes Tetanus Immunization Date: Feb 21, 2010 History of Pneumococcal: Yes Pneumococcal Date: May 24, 2009 History of Hepatitis B Vaccine: No Procedures: CT abdomen and pelvis unremarkable for origin of pain Consultations: Dr Ha did see and does not wish to pursue invasive testing at this time for her pain Medication Reconciliation New Medications: Gabapentin (Gabapentin) 300 Mg Cap 300 MG PO TID, #90 CAP Changed Medications: Tapentadol HCl (Nucynta) 50 Mg Tab 100 MG PO Q4H PRN for Pain for 3 Days, #40 TAB (Changed from: 50 MG; 18) Continued Medications: Acetaminophen (Tylenol) 325 Mg Tab 650 MG PO Q6 PRN for Pain, TAB Aspirin (Aspirin Ec) 81 Mg Tab 81 MG PO QPM Atorvastatin Calcium (Lipitor) 80 Mg Tab 80 MG PO HS, TAB Buspirone HCl (Buspirone HCl) 10 Mg Tab 10 MG PO BID Carisoprodol (Carisoprodol) 350 Mg Tab 350 MG PO TID PRN for back pain for 5 Days, #15 TAB Clonazepam (Clonazepam) 0.5 Mg Tab 0.5 MG PO Q8H PRN for anxiety , #20 TAB 0 Refills Docusate Sodium (Docusate Sodium) 100 Mg Cap 100 MG PO BID Duloxetine HCl (Duloxetine HCl) 60 Mg Cap 60 MG PO DAILY Esomeprazole Magnesium (Nexium) 40 Mg Cap 40 MG PO BID, CAP Famotidine (Pepcid) 40 Mg Tab 40 MG PO HS, TAB Insulin Aspart (Novolog) 100 Units/Ml Inj SQ TIDM for SLIDING SCALE Insulin Glargine (Lantus Solostar) 100 Unit/Ml Inj 42 UNITS SQ QPM, #30 Liraglutide (Victoza) 18 Mg/3 Ml Inj 1.8 MG SQ QAM Lisinopril (Lisinopril) 2.5 Mg Tab 2.5 MG PO QAM, TAB Metoprolol Succinate (Metoprolol Succinate ER) 25 Mg Tabcr 25 MG PO DAILY Polyethylene Glycol 3350 (Miralax) 1 Pow Pow 17 GM PO DAILY PRN for Constipation Trazodone HCl (Trazodone HCl) 50 Mg Tab 50 MG PO HS for 30 Days, #30 TAB Discharge Exam Review of Systems: Constitutional: No fever Respiratory: No cough, No sputum Cardiovascular: No chest pain, No orthopnea Abdomen: + pain, + nausea, No vomiting Physical Exam: General Appearance: WD/WN, no apparent distress Eyes: PERRL, EOMI 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: alert, oriented x 3 Hospital Course 50-year-old female with DKA, pH 7.21 on presentation, now resolved. persistent abdominal pain epigastric DKA: stable after transitioned to basal bolus with pharmacy help abdominal discomfort, CT does not show any issues, did have EGD in last few years and colo negative 2010. also not helped with GI cocktail, very reproducible and point tender, consideration of myofascial pain and possible ventral hernia, will add Neurontin to Nucynta and continue ppi and H2. may benefit from outpt pain management appointment Anemia, dropped > 2 gms but pt was volume contracted on presentation and hydrated, doubt acute GI bleed, no testing recommended by GI med Acute kidney injury: improved Chronic pain: good control with chromic pain from left BKA since abdominal pain has worsened will increase nucynta Anxiety/Depression- seems depressed, Cymbalta 30 mg daily- Buspar, Trazodone 50 mg HS for sleep, does not want additional meds Hypertension controlled metoprolol XL 25 mg daily and lisinopril 2.5 mg daily Hyperlipidemia atorvastatin 80 mg daily DVT prophylaxis:Heparin SQ Full code Total Time Spent: Greater than 30 minutes This includes examination of the patient, discharge planning, medication reconciliation, and communication with other providers. Discharge Instructions Please refer to the electronic Patient Visit Report (Discharge Instructions) for additional information. Additional Copies To Sury Contreras,
== END 2016-10-05 12:37 | disposition home or self-care (01) | DRG 638 ==
LOC: EDBD 00:49 → C.EDB 00:50 → C.2E 04:27 → ENRESERV 04:44 → C.MS2W 10-03 12:55
PROVIDERS: ADMIT Family Medicine; ATTEND Internal Medicine
DX: E13.10 Other specified diabetes mellitus with ketoacidosis without coma (principal); N17.9 Acute kidney failure, unspecified; E11.43 Type 2 diabetes mellitus with diabetic autonomic (poly)neuropathy; I10 Essential (primary) hypertension; D64.9 Anemia, unspecified; F32.9 Major depressive disorder, single episode, unspecified; E78.5 Hyperlipidemia, unspecified; F41.1 Generalized anxiety disorder; F17.210 Nicotine dependence, cigarettes, uncomplicated; F12.90 Cannabis use, unspecified, uncomplicated; G89.29 Other chronic pain; R10.9 Unspecified abdominal pain; Z79.82 Long term (current) use of aspirin; Z79.899 Other long term (current) drug therapy; Z79.01 Long term (current) use of anticoagulants; Z79.84 Long term (current) use of oral hypoglycemic drugs; Z79.891 Long term (current) use of opiate analgesic; Z79.4 Long term (current) use of insulin; Z89.519 Acquired absence of unspecified leg below knee

== ENCOUNTER → 2016-10-13 | Outpatient (CLI) | payer OTHER ==
[~2016-10-13] MED LIST changes: +BSP/10 PO; +CLC100 PO; -CYM30 PO; +CYM60 PO; +NRN300 PO
[2016-10-13 13:29] LABS: BASO % 0.8 %; BASO ABS # 0.07 K/uL (0-0.2); COMPLETE YES; EOS % 2.1 %; IG% 0.4 %; LYMPH % 41.9 %; LYMPH ABS # 3.46 K/uL (1.2-3.4); MEAN CELL VOLUME 81.9 fL (80-100); MEAN CORPUSCULAR HEMOGLOBIN 25.7 pg (25-34); MEAN CORPUSCULAR HGB CONC 31.4 g/dl (32-36); MEAN PLATELET VOLUME 9.6 fL (7.4-10.4); MONO % 4.5 %; NEUT % 50.3 %; PLATELET COUNT 506 K/uL (130-400); RED BLOOD COUNT 4.52 M/uL (4.2-5.4); WHITE BLOOD COUNT 8.25 K/uL (4.8-10.8)
[2016-10-13 14:08] LABS: ALT/SGPT 22 U/L (12-78); BLOOD UREA NITROGEN 13 mg/dl (7-18); BUN/CREATININE RATIO 10.8 (10-20); CALCIUM 8.8 mg/dl (8.5-10.1); CARBON DIOXIDE 28 mmol/L (21-32); CHLORIDE 109 mmol/L (98-107); GLUCOSE 81 mg/dl (70-99); POTASSIUM 3.9 mmol/L (3.5-5.1); SODIUM 143 mmol/L (136-145)
[2016-10-13 14:11] LABS: ALKALINE PHOSPHATASE 137 U/L (45-117); AST/SGOT 11 U/L (15-37)
[2016-10-13 14:33] LABS: ESTIMATED AVERAGE GLUCOSE 255 mg/dl; HA1C FLAG Normal (Normal)
== END | disposition home or self-care (01) ==
LOC: C.LAB1850 11:45
PROVIDERS: ATTEND Internal Medicine
DX: Z00.00 Encounter for general adult medical examination without abnormal findings (principal); N18.3 Chronic kidney disease, stage 3 (moderate); D50.9 Iron deficiency anemia, unspecified; E11.42 Type 2 diabetes mellitus with diabetic polyneuropathy; K76.0 Fatty (change of) liver, not elsewhere classified; N28.9 Disorder of kidney and ureter, unspecified; E11.29 Type 2 diabetes mellitus with other diabetic kidney complication; I12.9 Hypertensive chronic kidney disease with stage 1 through stage 4 chronic kidney disease, or unspecified chronic kidney disease

== ENCOUNTER → 2016-11-10 | Outpatient (CLI) | payer OTHER | END | disposition home or self-care (01) | LOC: C.PATHSPEC 17:26 | PROVIDERS: ATTEND Orthopaedic Surgery Sports Medicine | DX: R22.42 Localized swelling, mass and lump, left lower limb (principal); L92.9 Granulomatous disorder of the skin and subcutaneous tissue, unspecified ==

== ENCOUNTER → 2016-11-12 | Outpatient (CLI) | payer OTHER ==
--- NOTE | 2016-11-12 12:47 | DIAGNOSTIC IMAGING REPORT ---
NUCLEAR GASTRIC EMPTYING STUDY CLINICAL HISTORY: Nausea and vomiting. COMPARISON STUDY: Abdominal CT dated 10/02/2016. TECHNIQUE: Following the oral administration of 1.1 mCi of technetium 99m sulfur colloid in egg sandwich and 8 ounces of water, static abdominal images are obtained anteriorly and posteriorly at 0 minutes, 1 hour, 2 hour, and 4 hour time intervals. Gastric emptying was calculated utilizing the geometric mean method. FINDINGS: There is approximately 67% activity remaining at the 1 hour time interval, 46% remaining at the 2 hour time interval (normal is less than 60%), and 0% activity remaining at the 4 hour time interval (normal is less than 10%). IMPRESSION: Findings are consistent with normal gastric emptying for solids. Electronically signed by: Don Curtis M.D. 11/12/2016 12:46 PM Dictated Date/Time: 11/12/2016 12:45 PM
== END | disposition home or self-care (01) ==
LOC: C.NUCL 07:31
PROVIDERS: ATTEND Internal Medicine
DX: R11.2 Nausea with vomiting, unspecified (principal)

== ENCOUNTER → 2017-02-10 | Outpatient (CLI) | payer OTHER ==
[2017-02-10 12:39] LABS: BASO % 0.7 %; BASO ABS # 0.05 K/uL (0-0.2); COMPLETE YES; EOS % 3.6 %; HEMATOCRIT 38.2 % (37-47); IG% 0.1 %; LYMPH % 37.8 %; LYMPH ABS # 2.55 K/uL (1.2-3.4); MEAN CELL VOLUME 79.3 fL (80-100); MEAN CORPUSCULAR HEMOGLOBIN 25.5 pg (25-34); MEAN CORPUSCULAR HGB CONC 32.2 g/dl (32-36); MEAN PLATELET VOLUME 10.1 fL (7.4-10.4); MONO % 5.6 %; NEUT % 52.2 %; PLATELET COUNT 329 K/uL (130-400); RED BLOOD COUNT 4.82 M/uL (4.2-5.4); WHITE BLOOD COUNT 6.75 K/uL (4.8-10.8)
[2017-02-10 13:40] LABS: BLOOD UREA NITROGEN 14 mg/dl (7-18); BUN/CREATININE RATIO 12.8 (10-20); CARBON DIOXIDE 24 mmol/L (21-32); CHLORIDE 108 mmol/L (98-107); CREATININE 1.12 mg/dl (0.60-1.20); GLUCOSE 161 mg/dl (70-99); PHOSPHORUS 3.2 mg/dl (2.5-4.9); POTASSIUM 3.9 mmol/L (3.5-5.1); SODIUM 141 mmol/L (136-145)
== END | disposition home or self-care (01) ==
LOC: C.LABBFT 08:42
PROVIDERS: ATTEND Internal Medicine
DX: E10.22 Type 1 diabetes mellitus with diabetic chronic kidney disease (principal); E10.65 Type 1 diabetes mellitus with hyperglycemia; N18.3 Chronic kidney disease, stage 3 (moderate)

== ENCOUNTER → 2017-06-17 | Outpatient (CLI) | payer OTHER ==
[~2017-06-17] MED LIST changes: -DSY50 PO; +GABA-113 PO; -LIRA18IN SQ; -NRN300 PO; +OLAN-111 PO; +QUET1TAB34 PO; -SM350 PO; +SUCR5SUS PO
[2017-06-17 12:48] LABS: ALBUMIN 3.3 gm/dl (3.4-5.0); ALT/SGPT 18 U/L (12-78); AST/SGOT 10 U/L (15-37); BLOOD UREA NITROGEN 12 mg/dl (7-18); CALCIUM 8.9 mg/dl (8.5-10.1); CARBON DIOXIDE 29 mmol/L (21-32); CREATININE 1.17 mg/dl (0.60-1.20); GLUCOSE 124 mg/dl (70-99); POTASSIUM 3.5 mmol/L (3.5-5.1); SODIUM 140 mmol/L (136-145)
[2017-06-17 12:59] LABS: ALKALINE PHOSPHATASE 173 U/L (45-117); CHOLESTEROL 182 mg/dl (0-200); LDL CHOLESTEROL CALCULATED 72 mg/dl; TOTAL PROTEIN 6.7 gm/dl (6.4-8.2)
[2017-06-17 13:23] LABS: HEMOGLOBIN A1C 11.2 % (4.5-5.6)
== END | disposition home or self-care (01) ==
LOC: C.LABBFT 08:59
PROVIDERS: ATTEND Physician Assistant
DX: E10.65 Type 1 diabetes mellitus with hyperglycemia (principal)

== ENCOUNTER 2021-01-01 19:48 | Inpatient (IN) ==
[2021-01-01 21:18] LABS: Basophils # (auto) 0.04 K/uL (0-0.2); Basophils % (auto) 0.3 %; Eosinophils # (auto) 0.02 K/uL (0-0.5); Eosinophils % (auto) 0.1 %; Hematocrit (blood only) 37.9 % (37-47); Hemoglobin 11.7 g/dL (12.0-16.0); Immature Granulocytes # (auto) 0.05 K/uL (0.00-0.02); Immature Granulocytes % (auto) 0.4 %; Lymphocytes % (auto) 11.7 %; Mean Corpuscular Hemoglobin 25.5 pg (25-34); Mean Corpuscular Hgb Conc 30.9 g/dL (32-36); Mean Corpuscular Volume 82.8 fL (80-100); Monocytes # (auto) 0.97 K/uL (0.11-0.59); Monocytes % (auto) 7.1 %; Neutrophils # (auto) 11.04 K/uL (1.4-6.5); Neutrophils % (auto) 80.4 %; Platelet Count 435 K/uL (130-400); Red Blood Count 4.58 M/uL (4.2-5.4); White Blood Count 13.72 K/uL (4.8-10.8)
[2021-01-01 21:30] LABS: Alanine Aminotransferase 20 U/L (12-78); Albumin Level 3.4 gm/dl (3.4-5.0); Aspartate Aminotransferase 14 U/L (15-37); Blood Urea Nitrogen 33 mg/dl (7-18); Calcium 10.1 mg/dl (8.5-10.1); Carbon Dioxide 22 mmol/L (21-32); Chloride 81 mmol/L (98-107); Est GFR (African American) 27.6 ml/min; Est GFR (Non-African American) 23.8 ml/min; Globulin 3.5 gm/dl (2.5-4.0); Glucose 1067 mg/dl (70-99); Lipase 59 U/L (73-393); Sodium 119 mmol/L (136-145); Total Protein 6.9 gm/dl (6.4-8.2)
[2021-01-01 21:33] LABS: Alkaline Phosphatase 164 U/L (45-117)
[2021-01-01 21:46] LABS: Bilirubin,Total 0.5 mg/dl (0.2-1)
[2021-01-01] MEDS ORDERED: STAT IV Infusion **Titration per Protocol STA (21:52)
[2021-01-01] MEDS ORDERED: GLUCOSE 10 TABS/TUBE PO PRN (21:52)
[2021-01-01] MEDS ORDERED: GLUCOSE 40% GEL 15 GM TUBE PO PRN (21:52)
[2021-01-01] MEDS ORDERED: DKA GOAL RANGE 150-250 mg/dl ONE (21:52)
[2021-01-01] MEDS ORDERED: GLUCAGON FOR INJ 1 MG VIAL SQ PRN (21:52)
[2021-01-01 21:56] LABS: Beta-Hydroxybutyrate 66.92 mg/dl (0.2-2.81)
[2021-01-01] MEDS: SODIUM CHLORIDE 0.9% 1000ML 1,000 ML IV SCH (21:57)
[2021-01-01] MEDS ORDERED: INSULIN REGULAR 250 UNITS in SODIUM CHLORIDE 0.9% 247.5 ML IV SCH (22:00)
[2021-01-01] MEDS ORDERED: INSULIN HUMAN REGULAR PER UNIT 8 UNITS in SYRINGE 7.92 ML IV STA (22:01)
[2021-01-01 22:09] LABS: Magnesium 2.1 mg/dl (1.8-2.4); Phosphorus 3.7 mg/dl (2.5-4.9)
[2021-01-01 22:28] LABS: Appearance Urine Clear (Clear); Bilirubin Urine Negative (Negative); Blood Urine Negative (Negative); Color Urine Yellow; Glucose Urine UA 3+ (Negative); Ketones Urine 2+ (Negative); Leukocyte Esterase Urine Negative (Negative); Nitrite Urine Negative (Negative); Protein Urine Negative (Negative); Specific Gravity Urine 1.029 (1.000-1.030); Urobilinogen Urine Negative (Negative); pH Urine 5.5 (4.5-7.5)
--- NOTE | 2021-01-01 22:31 | Emergency Department Note ---
History of Present Illness General Chief complaint: Vomiting Stated complaint: VOMITING Time Seen by Provider: 01/01/21 21:33 Source: patient Mode of arrival: ambulatory Limitations: no limitations History of Present Illness Provider complaint: nausea, vomiting, diarrhea Onset (ago): day(s) 5 Location: abdomen Radiation: non-radiation Severity: mild Associated symptoms: + cough, + fever/chills, + headaches, + loss of appetite, + malaise, + nausea/vomiting and + weakness; no shortness of breath Treatments prior to arrival: none This is a 55-year-old female presents emergency department complaining of nausea, vomiting, diarrhea, fatigue, and chills. Patient denies any overt fevers. Patient denies any known sick contacts. Patient is a diabetic. Patient states her blood sugar levels have been elevated recently. Patient denies any recent change in medications. Patient states she has previously been admitted for trouble with her blood sugar. Patient has had a prior amputation. Patient with multiple prior surgeries. Patient denies any coming abdominal pain or distention. Patient denies any blood in her vomit or diarrhea. Patient states she not anticoagulated. Pt seen during a time of high acuity and national emergency pandemic while wearing PPE. Home Medications Medication Instructions Recorded Confirmed Type aspirin 81 mg tablet,delayed 81 mg PO HS 02/10/18 01/01/21 History release (Adult Aspirin Regimen) blood-glucose meter (OneTouch #1 ea 11/22/18 12/12/20 History UltraMini) subcutaneous insulin pump (Omnipod #1 ea 11/22/18 12/12/20 History Insulin Management) sucralfate 1 gram tablet (Carafate) 1 g PO TID PRN tab 03/14/19 01/01/21 History cholecalciferol (vitamin D3) 50 2,000 units PO QAM 06/29/19 01/01/21 History mcg (2,000 unit) capsule polyethylene glycol 3350 17 gram 17 gm PO DAILY PRN #14 ea 07/06/19 01/01/21 Rx oral powder packet (Miralax) fenofibrate nanocrystallized 48 mg 48 mg PO DAILY #90 tab 05/16/20 01/01/21 Rx tablet (Tricor) levothyroxine 50 mcg tablet 50 mcg PO DAILY #90 tab 07/06/20 01/01/21 Rx metoprolol succinate 25 mg 50 mg PO DAILY #180 tab 07/06/20 01/01/21 Rx tablet,extended release 24 hr famotidine 40 mg tablet (Pepcid) 40 mg PO HS #90 tab 08/08/20 01/01/21 Rx miscellaneous medical supply #2 ea 08/10/20 12/12/20 Rx amlodipine 2.5 mg tablet 2.5 mg PO DAILY #90 tab 09/05/20 01/01/21 Rx lisinopril 10 mg tablet 10 mg PO DAILY #90 tab 09/18/20 01/01/21 Rx acetone (urine) test (Ketostix) #25 ea 10/15/20 12/12/20 Rx Omnipod Insulin Refill (insulin #90 ea NS 10/16/20 12/12/20 Rx pump cartridge) insulin pump cartridge (Omnipod #30 ea 10/18/20 12/12/20 Rx Dash 5 Pack Pod) Novolog U-100 Insulin aspart 100 See Rx Instructions CONTINUOUS 11/05/20 Rx unit/mL subcutaneous solution SUBCUTANEOUS INFUSION .COMPLEX #90 (insulin aspart U-100) ml NS atorvastatin 20 mg tablet 20 mg PO DAILY #90 tab 11/15/20 01/01/21 Rx blood sugar diagnostic (FreeStyle #300 ea 11/15/20 12/12/20 Rx Test) BD Insulin Syringe Ultra-Fine 0.5 #90 ea NS 11/29/20 12/12/20 Rx mL 31 gauge x 5/16" (insulin syringe-needle U-100) insulin detemir U-100 100 unit/mL 35 unit SUBCUT DAILY box 11/29/20 01/01/21 History (3 mL) subcutaneous pen insulin syringe,safetyneedle 0.5 #100 ea 11/29/20 12/12/20 Rx mL 31 gauge x 15/64" (Assure ID Insulin Safety) pen needle, diabetic 31 gauge x #100 ea 12/12/20 12/12/20 Rx 3/16" (BD Ultra-Fine Mini Pen Needle) duloxetine 30 mg capsule,delayed 30 mg PO QAM #30 cap 12/14/20 01/01/21 Rx release (Cymbalta) duloxetine 60 mg capsule,delayed 60 mg PO QAM #30 cap 12/14/20 01/01/21 Rx release (Cymbalta) quetiapine 300 mg tablet 450 mg PO HS #45 tab 12/14/20 01/01/21 Rx suvorexant 20 mg tablet (Belsomra) 20 mg PO HS PRN 30 Days #30 tab 12/14/20 01/01/21 Rx tapentadol 100 mg tablet (Nucynta) 100 mg PO .COMPLEX #120 tab 12/25/20 01/01/21 Rx esomeprazole magnesium 40 mg 40 mg PO DAILY #90 cap 12/26/20 01/01/21 Rx capsule,delayed release Allergies Allergy/AdvReac Type Severity Reaction Status Date / Time codeine Allergy Intermediate HIVES Verified 01/01/21 21:38 doxycycline Allergy Intermediate GI UPSET Verified 01/01/21 21:38 and hives fluconazole Allergy Intermediate HIVES, Verified 01/01/21 21:38 ITCHING, N/V SHORT OF BREATH latex Allergy Intermediate RASH, Verified 01/01/21 21:38 PAINFUL TO THE TOUCH Penicillins Allergy Unknown HAD Verified 01/01/21 21:38 ROCEPHIN IN PAST hydromorphone AdvReac Intermediate SEVERE Verified 01/01/21 21:38 HEADACHE, NAUSEA AND VOMITING, hives morphine AdvReac Intermediate SEVERE Verified 01/01/21 21:38 N/V, LUNDBERG. PT OK W/ ONE TIME DOSES Past Med/Surg History Medical History Anxiety and depression Albright's esophagus Cervical disc disease COPD (chronic obstructive pulmonary disease) Fatty liver Fibular hemimelia of left lower extremity Gastroparesis History of Lyme disease Hypercholesterolemia Hypertension Hypothyroidism Iron deficiency anemia Mitral regurgitation "MILD">FOLLOWS WITH DR. 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 Secondary hyperparathyroidism of renal origin Sleep apnea NO DEVICE Stage III chronic kidney disease Type 1 diabetes mellitus INSULIN PUMP Vitamin D deficiency Surgical History Fusion of spine CERVICAL H/O arthroscopy of right knee H/O shoulder surgery LEFT History of anesthesia reaction SLOW TO WAKE UP History of cholecystectomy History of colonoscopy History of esophagogastroduodenoscopy (EGD) History of mandibular surgery COULD NOT OPEN MOUTH/TITANIUM IN JAW 2013 History of tooth extraction Hx of BKA LEFT BKA Family History Other Adopted Social History Smoking Status: Former smoker Second Hand Exposure: No; Hx Alcohol Use: No Hx Substance Use: No Preferred Language: Guinean Communication Ability: Effective Mobile Sales Assistant Required: No Beliefs That Will Affect Care: None marital status: Current Living Situation: Significant Other current occupational status: unemployed and disabled Feels Safe at Home: Yes Dental Care, Regularly: No Physical Activity Frequency: 1-2 Times per Week Seatbelt Use: always Assistive Devices: Cane, Walker and Wheelchair Review of Systems A total of 10 systems reviewed and were otherwise negative All systems reviewed & are unremarkable except as noted in HPI & below Physical Exam Vital Signs Vital Signs - 24 hr 01/01/21 20:21 01/01/21 21:38 Temperature 36.8 C Temperature Source Temporal Artery Scan Pulse Rate 120 H 122 H Respiratory Rate 20 24 Blood Pressure 95/66 L 121/65 Blood Pressure Mean 75 83 Pulse Oximetry 95 97 Oxygen Delivery Method Room Air Sepsis Recent Fever Within 48 Hours No Sepsis New/Unexplained Change in Mental Status No Sepsis Action Taken by Nursing No Action Required GENERAL: alert, ill appearing, well nourished, no distress, non-toxic EYE EXAM: normal conjunctiva, PERRL and EOM's grossly intact OROPHARYNX: no exudate, no erythema, lips, buccal mucosa, and tongue normal and mucous membranes are moist NECK: supple, no nuchal rigidity, no adenopathy, non-tender LUNGS: Clear to auscultation. Normal chest wall mechanics, no w/r/r HEART: no murmurs, S1 normal and S2 normal ABDOMEN: abdomen soft, non-tender, normo-active bowel sounds, no masses, no rebound or guarding. BACK: Back is symmetrical on inspection and there is no deformity, no midline tenderness, no CVA tenderness. SKIN: no rashes and no bruising UPPER EXTREMITIES: upper extremities are grossly normal. FROM, nml pulses b/l. LOWER EXTREMITIES: No pitting edema. FROM, nml pulses b/l. Left BKA. Multiple well-healed surgical scars. NEURO EXAM: Normal sensorium, cranial nerves II-XII grossly intact, normal speech, no gross weakness of arms, no gross weakness of legs. Gross sensation intact. Course Administered Medications Discontinued Medications Amlodipine Besylate (Amlodipine Besylate 5 Mg Tab) 2.5 mg PO DAILY [facility] Stop: 02/01/21 08:59 Last Admin: 01/03/21 08:39 Dose: 2.5 mg Documented by: [id number] Admin: 01/02/21 08:40 Dose: 2.5 mg Documented by: [id number] Aspirin (Aspirin 81 Mg Ectab) 81 mg PO HS [facility] Stop: 02/01/21 20:59 Last Admin: 01/02/21 21:16 Dose: 81 mg Documented by: [id number] Atorvastatin Calcium (Atorvastatin 20 Mg Tab) 20 mg PO DAILY [facility] Stop: 02/01/21 08:59 Last Admin: 01/03/21 08:39 Dose: 20 mg Documented by: [id number] Admin: 01/02/21 08:40 Dose: 20 mg Documented by: [id number] Dextrose (Dextrose 50% 50 Ml Syringe) 25 - 50 ml IV UD PRN; Protocol PRN Reason: Hypoglycemia Protocol Stop: 01/31/21 21:51 Last Admin: 01/03/21 00:50 Dose: 25 ml Documented by: [id number] Admin: 01/02/21 11:52 Dose: 25 ml Documented by: [id number] Admin: 01/02/21 07:41 Dose: 25 ml Documented by: [id number] Admin: 01/02/21 05:38 Dose: 50 ml Documented by: [id number] Dextrose (Dextrose 50% 50 Ml Syringe) 25 ml IV NOW ONE Stop: 01/02/21 05:40 Last Admin: 01/02/21 06:12 Dose: Not Given Documented by: [id number] Duloxetine HCl (Duloxetine Hcl 30 Mg Cap) 90 mg PO QA [facility] Stop: 02/01/21 08:59 Last Admin: 01/03/21 08:41 Dose: 90 mg Documented by: [id number] Admin: 01/02/21 08:40 Dose: 90 mg Documented by: [id number] Famotidine (Famotidine 20 Mg Tab) 20 mg PO HS [facility]; Protocol Stop: 02/01/21 20:59 Last Admin: 01/02/21 21:16 Dose: 20 mg Documented by: [id number] Fenofibrate (Fenofibrate Nanocrystallized 48 Mg Tablet) 48 mg PO DAILY [facility] Stop: 02/01/21 08:59 Last Admin: 01/03/21 08:39 Dose: 48 mg Documented by: [id number] Admin: 01/02/21 08:40 Dose: 48 mg Documented by: [id number] Glucose (Glucose 10 Tabs/Tube) 4 - 8 tabs PO UD PRN; Protocol PRN Reason: Hypoglycemia Protocol Stop: 01/31/21 21:51 Last Admin: 01/03/21 00:18 Dose: 4 tabs Documented by: [id number] Heparin Sodium (Porcine) (Heparin Sod 5,000 Unit/0.5 Ml Vial) 5,000 units SQ Q8 [facility] Stop: 02/01/21 13:59 Last Admin: 01/03/21 15:12 Dose: Not Given Documented by: [id number] Admin: 01/03/21 05:55 Dose: 5,000 units Documented by: [id number] Admin: 01/02/21 21:17 Dose: 5,000 units Documented by: [id number] Admin: 01/02/21 14:12 Dose: 5,000 units Documented by: [id number] Sodium Chloride (Nss 1000ml) 1,000 mls @ 500 mls/hr IV .Q2H [facility] Stop: 01/31/21 21:59 Last Admin: 01/02/21 10:06 Dose: Not Given Documented by: [id number] Admin: 01/02/21 01:55 Dose: Not Given Documented by: [id number] Infusion: 01/02/21 00:00 Dose: 0 mls/hr Documented by: [id number] Admin: 01/01/21 21:57 Dose: 500 mls/hr Documented by: [id number] Insulin Human Regular 250 (units/ Sodium Chloride) 250 mls @ 9.6 mls/hr IV .Q24H [facility]; Protocol Stop: 01/31/21 21:59 Last Titration: 01/02/21 02:39 Dose: 0 units/hr, 0 mls/hr Documented by: [id number] Cosigned by: [id number] Titration: 01/02/21 01:12 Dose: 11.5 units/hr, 11.5 mls/hr Documented by: [id number] Cosigned by: [id number] Titration: 01/02/21 00:07 Dose: 9.6 units/hr, 9.6 mls/hr Documented by: [id number] Cosigned by: [id number] Admin: 01/01/21 22:19 Dose: 8 units/hr, 8 mls/hr Documented by: [id number] Cosigned by: [id number] Insulin Human Regular 8 units/ (Syringe) 8 mls @ 30 mls/min IV NOW STA Stop: 01/01/21 22:02 Last Admin: 01/01/21 22:20 Dose: 30 mls/min Documented by: [id number] Cosigned by: [id number] Cefepime HCl (Maxipime) 2,000 mg in 20 mls @ 5 mls/min IV NOW STA; Protocol Stop: 01/01/21 23:45 Last Admin: 01/02/21 00:24 Dose: 5 mls/min Documented by: [id number] Insulin Human Regular 250 (units/ Sodium Chloride) 250 mls @ 1.2 mls/hr IV .Q24H [facility]; Protocol Stop: 02/01/21 01:44 Last Titration: 01/02/21 16:55 Dose: 0 units/hr, 0 mls/hr Documented by: [id number] Cosigned by: [id number] Titration: 01/02/21 16:12 Dose: 0 units/hr, 0 mls/hr Documented by: [id number] Cosigned by: [id number] Titration: 01/02/21 15:15 Dose: 0.08 units/hr, 0.1 mls/hr Documented by: [id number] Cosigned by: [id number] Titration: 01/02/21 14:00 Dose: 1 units/hr, 1 mls/hr Documented by: [id number] Cosigned by: [id number] Titration: 01/02/21 13:00 Dose: 1 units/hr, 1 mls/hr Documented by: [id number] Cosigned by: [id number] Titration: 01/02/21 12:05 Dose: 1.2 units/hr, 1.2 mls/hr Documented by: [id number] Cosigned by: [id number] Titration: 01/02/21 11:45 Dose: 0 units/hr, 0 mls/hr Documented by: [id number] Cosigned by: [id number] Titration: 01/02/21 11:30 Dose: 0 units/hr, 0 mls/hr Documented by: [id number] Cosigned by: [id number] Titration: 01/02/21 10:30 Dose: 2 units/hr, 2 mls/hr Documented by: [id number] Cosigned by: [id number] Titration: 01/02/21 09:30 Dose: 2 units/hr, 2 mls/hr Documented by: [id number] Cosigned by: [id number] Titration: 01/02/21 08:31 Dose: 1.7 units/hr, 1.7 mls/hr Documented by: [id number] Cosigned by: [id number] Titration: 01/02/21 07:05 Dose: 0 units/hr, 0 mls/hr Documented by: [id number] Cosigned by: [id number] Titration: 01/02/21 05:59 Dose: 2.8 units/hr, 2.8 mls/hr Documented by: [id number] Cosigned by: [id number] Titration: 01/02/21 05:30 Dose: 0 units/hr, 0 mls/hr Documented by: [id number] Cosigned by: [id number] Titration: 01/02/21 04:43 Dose: 5.5 units/hr, 5.5 mls/hr Documented by: [id number] Cosigned by: [id number] Titration: 01/02/21 04:20 Dose: 11 units/hr, 11 mls/hr Documented by: [id number] Cosigned by: [id number] Titration: 01/02/21 03:15 Dose: 13.8 units/hr, 13.8 mls/hr Documented by: [id number] Cosigned by: [id number] Admin: 01/02/21 02:27 Dose: 13.8 units/hr, 13.8 mls/hr Documented by: [id number] Cosigned by: [id number] Sodium Chloride (1/2 Nss) 1,000 mls @ 250 mls/hr IV .Q4H [place] Stop: 02/01/21 00:44 Last Infusion: 01/02/21 02:42 Dose: 0 mls/hr Documented by: [id number] Infusion: 01/02/21 02:39 Dose: 0 mls/hr Documented by: [id number] Admin: 01/02/21 00:47 Dose: 250 mls/hr Documented by: [id number] Lactated Ringer's (Lr) 1,000 mls @ 999 mls/hr IV .Q1H1M [place] Stop: 01/02/21 02:30 Last Infusion: 01/02/21 04:00 Dose: 0 mls/hr Documented by: [id number] Admin: 01/02/21 02:57 Dose: 999 mls/hr Documented by: [id number] Infusion: 01/02/21 02:53 Dose: 999 mls/hr Documented by: [id number] Admin: 01/02/21 01:52 Dose: 999 mls/hr Documented by: [id number] Potassium Chloride/Sodium Chloride (1/2 Nss + 20meq Kcl 1000ml) 20 meq in 1,000 mls @ 250 mls/hr IV .Q4H [place] Stop: 02/01/21 02:29 Last Infusion: 01/02/21 05:50 Dose: 0 mls/hr Documented by: [id number] Admin: 01/02/21 02:29 Dose: 250 mls/hr Documented by: [id number] Magnesium Sulfate/Dextrose (Magnesium Sulfate / D5w) 1 gm in 100 mls @ 50 mls/hr IV ONE ONE Stop: 01/02/21 05:29 Last Infusion: 01/02/21 06:05 Dose: 0 mls/hr Documented by: [id number] Admin: 01/02/21 04:05 Dose: 50 mls/hr Documented by: [id number] Potassium Chloride/Dextrose/Sod Cl (D5w And 1/2nss + 20meq Kcl) 20 meq in 1,000 mls @ 200 mls/hr IV .Q5H [place] Stop: 02/01/21 05:29 Last Infusion: 01/02/21 06:04 Dose: 0 mls/hr Documented by: [id number] Admin: 01/02/21 05:30 Dose: 200 mls/hr Documented by: [id number] Potassium Chloride 40 meq/ (Dextrose/Sodium Chloride) 1,020 mls @ 200 mls/hr IV .Q5H6M [place] Stop: 02/01/21 05:44 Last Infusion: 01/02/21 15:44 Dose: 0 mls/hr Documented by: [id number] Admin: 01/02/21 11:17 Dose: 200 mls/hr Documented by: [id number] Infusion: 01/02/21 11:07 Dose: 200 mls/hr Documented by: [id number] Admin: 01/02/21 06:01 Dose: 200 mls/hr Documented by: [id number] Magnesium Sulfate/Dextrose (Magnesium Sulfate / D5w) 1 gm in 100 mls @ 50 mls/hr IV ONE ONE Stop: 01/02/21 07:49 Last Infusion: 01/02/21 07:55 Dose: 0 mls/hr Documented by: [id number] Admin: 01/02/21 05:55 Dose: 50 mls/hr Documented by: [id number] Cefepime HCl 2,000 mg/ Syringe 20 mls @ 5 mls/min IV Q12H [facility]; Protocol Stop: 01/04/21 11:59 Last Admin: 01/02/21 11:19 Dose: 5 mls/min Documented by: [id number] Insulin Aspart (Insulin Aspart 100 Units/Ml 3 Ml Pen) 0 units SC Q6 [place] Stop: 02/01/21 05:59 Last Admin: 01/02/21 05:49 Dose: Not Given Documented by: [id number] Insulin Aspart (Insulin Aspart 100 Units/Ml 3 Ml Pen) 0 units SC ACHS [facility] Stop: 02/01/21 11:29 Last Admin: 01/02/21 17:59 Dose: Not Given Documented by: [id number] Admin: 01/02/21 12:57 Dose: 1 units Documented by: [id number] Cosigned by: [id number] Admin: 01/02/21 11:18 Dose: Not Given Documented by: [id number] Insulin Aspart (Insulin Aspart 100 Units/Ml 3 Ml Pen) 0 units SC ACHS [facility] Stop: 02/01/21 16:44 Last Admin: 01/03/21 12:23 Dose: 9 units Documented by: [id number] Cosigned by: [id number] Admin: 01/03/21 08:40 Dose: 3 units Documented by: [id number] Cosigned by: [id number] Admin: 01/02/21 21:00 Dose: Not Given Documented by: [id number] Cosigned by: [id number] Admin: 01/02/21 16:54 Dose: Not Given Documented by: [id number] Insulin Aspart (Insulin Aspart 100 Units/Ml 3 Ml Pen) 7 units SC ONE ONE Stop: 01/02/21 17:55 Last Admin: 01/02/21 18:08 Dose: 7 units Documented by: [id number] Cosigned by: [id number] Insulin Aspart (Insulin Aspart 100 Units/Ml 3 Ml Pen) 0 units SC TODAY@0000,0400 [facility] Stop: 01/03/21 04:01 Last Admin: 01/03/21 04:08 Dose: Not Given Documented by: [id number] Cosigned by: [id number] Admin: 01/03/21 00:00 Dose: Not Given Documented by: [id number] Cosigned by: [id number] Insulin Detemir (Insulin Detemir Flexpen/Flex Touch 100 Units/Ml 3ml) 40 units SC ONE ONE Stop: 01/02/21 10:16 Last Admin: 01/02/21 10:54 Dose: 40 units Documented by: [id number] Cosigned by: [id number] Insulin Detemir (Insulin Detemir Flexpen/Flex Touch 100 Units/Ml 3ml) 20 units SC QAM [place] Stop: 02/02/21 08:59 Last Admin: 01/03/21 08:39 Dose: 20 units Documented by: [id number] Cosigned by: [id number] Levothyroxine Sodium (Levothyroxine Sodium 50 Mcg Tablet) 50 mcg PO DAILYBB [facility] Stop: 02/01/21 06:29 Last Admin: 01/03/21 05:56 Dose: 50 mcg Documented by: [id number] Admin: 01/02/21 05:31 Dose: 50 mcg Documented by: [id number] Lisinopril (Lisinopril 10 Mg Tab) 10 mg PO DAILY [place] Stop: 02/01/21 08:59 Last Admin: 01/03/21 08:39 Dose: 10 mg Documented by: [id number] Admin: 01/02/21 08:40 Dose: 10 mg Documented by: [id number] Metoprolol Succinate (Metoprolol Succ 50mg Ext Rel Tab) 50 mg PO DAILY [place] Stop: 02/01/21 08:59 Last Admin: 01/03/21 08:41 Dose: 50 mg Documented by: [id number] Admin: 01/02/21 08:40 Dose: 50 mg Documented by: [id number] Miscellaneous (Stat Iv Infusion Titration Per Protocol) 1 ea N/A NOW STA Stop: 01/01/21 21:53 Last Admin: 01/01/21 22:25 Dose: Not Given Documented by: [id number] Miscellaneous (Carbohydrates For Hypoglycemia ) 15 - 30 gm PO UD PRN PRN Reason: Hypoglycemia Protocol Stop: 01/31/21 21:51 Last Admin: 01/02/21 21:00 Dose: 15 gm Documented by: [id number] Admin: 01/02/21 20:35 Dose: 15 gm Documented by: [id number] Miscellaneous (Dka Goal Range 150-250 Mg/Dl) 1 ea N/A ONE ONE Stop: 01/01/21 21:53 Last Admin: 01/01/21 22:25 Dose: Not Given Documented by: [id number] Carolyncellaneous (*Belsomra*Order Awaiting Action) 1 ea N/A QS [facility] Stop: 02/01/21 07:59 Last Admin: 01/03/21 08:41 Dose: Not Given Documented by: [id number] Admin: 01/03/21 01:31 Dose: Not Given Documented by: [id number] Admin: 01/02/21 15:44 Dose: Not Given Documented by: [id number] Admin: 01/02/21 08:50 Dose: Not Given Documented by: [id number] Shad (Insulin Protocol Goal Range ) 1 ea N/A ONE ONE Stop: 01/02/21 13:04 Last Admin: 01/02/21 14:14 Dose: Not Given Documented by: [id number] Pantoprazole Sodium (Pantoprazole 40 Mg Tab) 40 mg PO DAILY [facility]; Protocol Stop: 02/01/21 08:59 Last Admin: 01/03/21 08:39 Dose: 40 mg Documented by: [id number] Admin: 01/02/21 08:40 Dose: 40 mg Documented by: [id number] Quetiapine Fumarate (Quetiapine Fumarate 300 Mg Tablet) 450 mg PO HS [facility] Stop: 02/01/21 20:59 Last Admin: 01/02/21 21:15 Dose: 450 mg Documented by: [id number] Tapentadol (Tapentadol Hcl 50 Mg Tab) 100 mg PO Q4H PRN PRN Reason: Pain Stop: 01/16/21 02:31 Last Admin: 01/03/21 12:23 Dose: 100 mg Documented by: [id number] Admin: 01/03/21 06:03 Dose: 100 mg Documented by: [id number] Admin: 01/02/21 21:14 Dose: 100 mg Documented by: [id number] Admin: 01/02/21 15:21 Dose: 100 mg Documented by: [id number] Admin: 01/02/21 07:10 Dose: 100 mg Documented by: [id number] Critical Care Time Critical Care Time: Yes Total Critical Care Time: 48 Critical care of 48 min performed to assess and manage high likelihood of life- threatening DKA, involving labs and imaging performed with assessment to evaluate DKA diagnosis with frequent reassessment. This time includes bedside time, treatment discussions with patient/family/consultants, documentation time and excludes procedure time. Medical Decision Making Differential Diagnosis Differential: Gastroenteritis, Food Borne, Esophageal Perforation, , Electrolyte Abnormality, Dehydration, Intraabdominal Infection, UTI/Pyelonephritis, Bowel Obstruction, Biliary Pathology, amongst other pathology entertained. Medical Records Attestation: I reviewed the patient's medical records. Home Medications Current Medication List: was personally reviewed by me Laboratory Data Attestation: I reviewed the patient's lab results. Result diagrams: 01/03/21 07:08 01/03/21 07:10 Lab Results 01/01/21 01/01/21 01/01/21 Range/Units 20:45 20:45 20:45 WBC 13.72 H (4.8-10.8) K/uL RBC 4.58 (4.2-5.4) M/uL Hgb 11.7 L (12.0-16.0) g/dL Hct 37.9 (37-47) % MCV 82.8 (80-100) fL MCH 25.5 (25-34) pg MCHC 30.9 L (32-36) g/dL Plt Count 435 H (130-400) K/uL Immature Gran % (Auto) 0.4 % Neut % (Auto) 80.4 % Lymph % (Auto) 11.7 % Bowie % (Auto) 7.1 % Eos % (Auto) 0.1 % Baso % (Auto) 0.3 % Neut # (Auto) 11.04 H (1.4-6.5) K/uL Lymph # (Auto) 1.60 (1.2-3.4) K/uL Bowie # (Auto) 0.97 H (0.11-0.59) K/uL Eos # (Auto) 0.02 (0-0.5) K/uL Baso # (Auto) 0.04 (0-0.2) K/uL Immature Gran # (Auto) 0.05 H (0.00-0.02) K/uL ABG pH (7.35-7.45) ABG pCO2 (35-46) mmHg ABG pO2 (80-95) mmHg ABG HCO3 (19-24) mmol/L ABG O2 Saturation (90-95) % ABG Base Excess (-9-1.8) mEq/L Pancho Test (Pos) Barometric Pressure mm/Hg Oxygen Given Sodium 119 L* (136-145) mmol/L Potassium 6.0 H (3.5-5.1) mmol/L Chloride 81 L (98-107) mmol/L Carbon Dioxide 22 (21-32) mmol/L Anion Gap 17.0 H (3-11) BUN 33 H (7-18) mg/dl Creatinine 2.22 H (0.6-1.2) mg/dl Est Cr Clr Drug Dosing Not Reportable Est GFR ( Amer) 27.6 ml/min Est GFR (Non-Af Amer) 23.8 ml/min BUN/Creatinine Ratio 15.0 (10-20) Glucose 1067 H* (70-99) mg/dl POC Glucose (70-99) mg/dl Estimat Average Glucose mg/dl Hemoglobin A1c (4.5-5.6) % Calcium 10.1 (8.5-10.1) mg/dl Phosphorus (2.5-4.9) mg/dl Magnesium (1.8-2.4) mg/dl Total Bilirubin 0.5 (0.2-1) mg/dl AST 14 L (15-37) U/L ALT 20 (12-78) U/L Alkaline Phosphatase 164 H (45-117) U/L Total Protein 6.9 (6.4-8.2) gm/dl Albumin 3.4 (3.4-5.0) gm/dl Globulin 3.5 (2.5-4.0) gm/dl Albumin/Globulin Ratio 1.0 (0.9-2) Lipase 59 L (73-393) U/L Beta-Hydroxybutyric Acd 66.92 H (0.2-2.81) mg/dl Procalcitonin 1.23 H (0-0.5) ng/ml Urine Color Urine Appearance (Clear) Urine pH (4.5-7.5) Ur Specific [place] (1.000-1.030) Urine Protein (Negative) Urine Glucose (UA) (Negative) Urine Ketones (Negative) Urine Blood (Negative) Urine Nitrite (Negative) Urine Bilirubin (Negative) Urine Urobilinogen (Negative) Ur Leukocyte Esterase (Negative) COVID-19 Eval Order SARS-CoV-2 (PCR) (Negative) 01/01/21 01/01/21 01/01/21 Range/Units 20:45 20:45 22:07 WBC (4.8-10.8) K/uL RBC (4.2-5.4) M/uL Hgb (12.0-16.0) g/dL Hct (37-47) % MCV (80-100) fL MCH (25-34) pg MCHC (32-36) g/dL Plt Count (130-400) K/uL Immature Gran % (Auto) % Neut % (Auto) % Lymph % (Auto) % Bowie % (Auto) % Eos % (Auto) % Baso % (Auto) % Neut # (Auto) (1.4-6.5) K/uL Lymph # (Auto) (1.2-3.4) K/uL [place] # (Auto) (0.11-0.59) K/uL Eos # (Auto) (0-0.5) K/uL Baso # (Auto) (0-0.2) K/uL Immature Gran # (Auto) (0.00-0.02) K/uL ABG pH (7.35-7.45) ABG pCO2 (35-46) mmHg ABG pO2 (80-95) mmHg ABG HCO3 (19-24) mmol/L ABG O2 Saturation (90-95) % ABG Base Excess (-9-1.8) mEq/L [place]ancho Test (Pos) Barometric Pressure mm/Hg Oxygen Given Sodium (136-145) mmol/L Potassium (3.5-5.1) mmol/L Chloride (98-107) mmol/L Carbon Dioxide (21-32) mmol/L Anion Gap (3-11) BUN (7-18) mg/dl Creatinine (0.6-1.2) mg/dl Est Cr Clr Drug Dosing Est GFR ( Amer) ml/min Est GFR (Non-Af Amer) ml/min BUN/Creatinine Ratio (10-20) Glucose (70-99) mg/dl POC Glucose (70-99) mg/dl Estimat Average Glucose 263 mg/dl Hemoglobin A1c 10.8 H (4.5-5.6) % Calcium (8.5-10.1) mg/dl Phosphorus 3.7 (2.5-4.9) mg/dl Magnesium 2.1 (1.8-2.4) mg/dl Total Bilirubin (0.2-1) mg/dl AST (15-37) U/L ALT (12-78) U/L Alkaline Phosphatase (45-117) U/L Total Protein (6.4-8.2) gm/dl Albumin (3.4-5.0) gm/dl Globulin (2.5-4.0) gm/dl Albumin/Globulin Ratio (0.9-2) Lipase (73-393) U/L Beta-Hydroxybutyric Acd (0.2-2.81) mg/dl Procalcitonin (0-0.5) ng/ml Urine Color Urine Appearance (Clear) Urine pH (4.5-7.5) Ur Specific [place] (1.000-1.030) Urine Protein (Negative) Urine Glucose (UA) (Negative) Urine Ketones (Negative) Urine Blood (Negative) Urine Nitrite (Negative) Urine Bilirubin (Negative) Urine Urobilinogen (Negative) Ur Leukocyte Esterase (Negative) COVID-19 Eval Order Covid19 at [facility] SARS-CoV-2 (PCR) (Negative) 01/01/21 01/01/21 01/01/21 Range/Units 22:07 22:20 22:22 WBC (4.8-10.8) K/uL RBC (4.2-5.4) M/uL Hgb (12.0-16.0) g/dL Hct (37-47) % MCV (80-100) fL MCH (25-34) pg MCHC (32-36) g/dL Plt Count (130-400) K/uL Immature Gran % (Auto) % Neut % (Auto) % Lymph % (Auto) % [place] % (Auto) % Eos % (Auto) % Baso % (Auto) % Neut # (Auto) (1.4-6.5) K/uL Lymph # (Auto) (1.2-3.4) K/uL [place] # (Auto) (0.11-0.59) K/uL Eos # (Auto) (0-0.5) K/uL Baso # (Auto) (0-0.2) K/uL Immature Gran # (Auto) (0.00-0.02) K/uL ABG pH (7.35-7.45) ABG pCO2 (35-46) mmHg ABG pO2 (80-95) mmHg ABG HCO3 (19-24) mmol/L ABG O2 Saturation (90-95) % ABG Base Excess (-9-1.8) mEq/L Pancho Test (Pos) Barometric Pressure mm/Hg Oxygen Given Sodium 125 L D (136-145) mmol/L Potassium 4.2 D (3.5-5.1) mmol/L Chloride 89 L (98-107) mmol/L Carbon Dioxide 18 L (21-32) mmol/L Anion Gap 18.0 H (3-11) BUN 35 H (7-18) mg/dl Creatinine 2.31 H (0.6-1.2) mg/dl Est Cr Clr Drug Dosing 29.2 Est GFR ( Amer) 26.3 ml/min Est GFR (Non-Af Amer) 22.7 ml/min BUN/Creatinine Ratio 15.2 (10-20) Glucose 869 H* (70-99) mg/dl POC Glucose (70-99) mg/dl Estimat Average Glucose mg/dl Hemoglobin A1c (4.5-5.6) % Calcium 9.8 (8.5-10.1) mg/dl Phosphorus (2.5-4.9) mg/dl Magnesium (1.8-2.4) mg/dl Total Bilirubin (0.2-1) mg/dl AST (15-37) U/L ALT (12-78) U/L Alkaline Phosphatase (45-117) U/L Total Protein (6.4-8.2) gm/dl Albumin (3.4-5.0) gm/dl Globulin (2.5-4.0) gm/dl Albumin/Globulin Ratio (0.9-2) Lipase (73-393) U/L Beta-Hydroxybutyric Acd 45.53 H (0.2-2.81) mg/dl Procalcitonin (0-0.5) ng/ml Urine Color Yellow Urine Appearance Clear (Clear) Urine pH 5.5 (4.5-7.5) Ur Specific [place] 1.029 (1.000-1.030) Urine Protein Negative (Negative) Urine Glucose (UA) 3+ H (Negative) Urine Ketones 2+ H (Negative) Urine Blood Negative (Negative) Urine Nitrite Negative (Negative) Urine Bilirubin Negative (Negative) Urine Urobilinogen Negative (Negative) Ur Leukocyte Esterase Negative (Negative) COVID-19 Eval Order SARS-CoV-2 (PCR) NEGATIVE (Negative) 01/01/21 01/01/21 Range/Units 22:45 23:15 WBC (4.8-10.8) K/uL RBC (4.2-5.4) M/uL Hgb (12.0-16.0) g/dL Hct (37-47) % MCV (80-100) fL MCH (25-34) pg MCHC (32-36) g/dL Plt Count (130-400) K/uL Immature Gran % (Auto) % Neut % (Auto) % Lymph % (Auto) % [place]ie % (Auto) % Eos % (Auto) % Baso % (Auto) % Neut # (Auto) (1.4-6.5) K/uL Lymph # (Auto) (1.2-3.4) K/uL [place] # (Auto) (0.11-0.59) K/uL Eos # (Auto) (0-0.5) K/uL Baso # (Auto) (0-0.2) K/uL Immature Gran # (Auto) (0.00-0.02) K/uL ABG pH 7.40 (7.35-7.45) ABG pCO2 28 L (35-46) mmHg ABG pO2 88 (80-95) mmHg ABG HCO3 17 L (19-24) mmol/L ABG O2 Saturation 97.0 H (90-95) % ABG Base Excess -6.6 (-9-1.8) mEq/L Pancho Test Pos (Pos) Barometric Pressure 730.8 mm/Hg Oxygen Given ROOM AIR Sodium (136-145) mmol/L Potassium (3.5-5.1) mmol/L Chloride (98-107) mmol/L Carbon Dioxide (21-32) mmol/L Anion Gap (3-11) BUN (7-18) mg/dl Creatinine (0.6-1.2) mg/dl Est Cr Clr Drug Dosing Est GFR ( Amer) ml/min Est GFR (Non-Af Amer) ml/min BUN/Creatinine Ratio (10-20) Glucose (70-99) mg/dl POC Glucose > 600 H* (70-99) mg/dl Estimat Average Glucose mg/dl Hemoglobin A1c (4.5-5.6) % Calcium (8.5-10.1) mg/dl Phosphorus (2.5-4.9) mg/dl Magnesium (1.8-2.4) mg/dl Total Bilirubin (0.2-1) mg/dl AST (15-37) U/L ALT (12-78) U/L Alkaline Phosphatase (45-117) U/L Total Protein (6.4-8.2) gm/dl Albumin (3.4-5.0) gm/dl Globulin (2.5-4.0) gm/dl Albumin/Globulin Ratio (0.9-2) Lipase (73-393) U/L Beta-Hydroxybutyric Acd (0.2-2.81) mg/dl Procalcitonin (0-0.5) ng/ml Urine Color Urine Appearance (Clear) Urine pH (4.5-7.5) Ur Specific [place] (1.000-1.030) Urine Protein (Negative) Urine Glucose (UA) (Negative) Urine Ketones (Negative) Urine Blood (Negative) Urine Nitrite (Negative) Urine Bilirubin (Negative) Urine Urobilinogen (Negative) Ur Leukocyte Esterase (Negative) COVID-19 Eval Order SARS-CoV-2 (PCR) (Negative) Imaging Data My Impression: X-ray: I interpreted the following studies. Chest: A single view study of the chest was reviewed and was negative for cardiomegaly, focal infiltrate, effusion, pulmonary edema, or wide mediastinum. Abd: No air-fluid levels, no free air, no obvious SBO ECG Data Attestation: I personally reviewed and interpreted this ECG as follows: Indication: + nausea Rate (beats per minute): 119 Rhythm: + sinus tachycardia ECG Intervals/blocks: + Normal QRS and + Normal QT ECG [place]: + Normal ECG ST segments: + Normal ST segments MDM Narrative This is an ill-appearing 55-year-old who presents due to concern for GI symptoms and dehydration. Labs drawn and sent, patient placed on telemetry, x-rays performed initially. Patient found to be in DKA with an initial glucose greater than 1000. DKA protocol started including insulin drip. Repeat BMP drawn later did show improvement. Patient had no EKG changes concerning for hyperkalemia which was initially 6. This was improved on a repeat as patient's sugar trended down and gap began to close. Patient with significant pseudohyponatremia. Patient was started on IV fluid rehydration and given medication for nausea. Patient does have history of several diabetic complications including neuropathy, amputation, and gastroparesis. Patient also has chronic kidney disease however today appears to have TEOFILO on top of this. ABG reassuring and without significant acidemia. As a precaution given elevated procalcitonin and leukocytosis, blood cultures drawn and sent and patient given an empiric dose of cefepime. UA still pending at the time my discussion with the hospitalist, and I suspect delayed due to patient's overall dehydration. Patient remained hemodynamically stable in the emergency department. Heart rate did improve with IV fluids and symptomatic control. No ectopy or dysrhythmia noted on telemetry. Patient admitted to the intensive care unit via the hospitalist. An order was placed for continuous cardiac monitoring. The monitor shows a rate of _113_ with _sinus tachycardia_ rhythm. Impression & Plan DKA (diabetic ketoacidosis), Dehydration, Nausea vomiting and diarrhea, TEOFILO (acute kidney injury) Discharge Plan Visit Data Chief Complaint: Vomiting Stated Complaint: VOMITING ED Provider: Hannah Cohen Discharge Problem: DKA (diabetic ketoacidosis), Dehydration, Nausea vomiting and diarrhea, TEOFILO (acute kidney injury) Patient Disposition: Admitted As Inpatient Discharge Instructions Interventions: ED Discharge Assessment Last Done: 01/02/21 01:38 Discharge Problem: DKA (diabetic ketoacidosis) Qualifiers: Diabetes mellitus type: type 1 Diabetes mellitus complication detail: without coma Qualified Code(s): E10.10 - Type 1 diabetes mellitus with ketoacidosis without coma
[2021-01-01 22:56] LABS: Base Excess ABG -6.6 mEq/L (-9-1.8); HCO3 ABG 17 mmol/L (19-24); PCO2 ABG 28 mmHg (35-46); PO2 ABG 88 mmHg (80-95)
[2021-01-01 22:57] LABS: Allen Test Pos (Pos)
[2021-01-01] MEDS ORDERED: CEFEPIME 2,000 MG/20 ML VIAL IV STA (23:42)
[2021-01-01 23:59] LABS: BUN Creatinine Ratio 15.2 (10-20); Calcium 9.8 mg/dl (8.5-10.1); Creatinine Clr Calc Pharmacy 29.2 ml/min; Est GFR (African American) 26.3 ml/min; Est GFR (Non-African American) 22.7 ml/min; Potassium 4.2 mmol/L (3.5-5.1)
[2021-01-02] MEDS ORDERED: STAT IV Infusion **Titration per Protocol STA ×3 (00:11→13:03)
[2021-01-02] MEDS ORDERED: PHARMACY GLYCEMIC MGMT CONSULT PRN (00:11)
[2021-01-02 00:32] LABS: Beta-Hydroxybutyrate 45.53 mg/dl (0.2-2.81)
[2021-01-02] MEDS ORDERED: SODIUM CHLORIDE 0.45 % 1,000 ML IV SCH (00:45)
[2021-01-02 01:07] LABS: BUN Creatinine Ratio 13.6 (10-20); Calcium 9.7 mg/dl (8.5-10.1); Creatinine Clr Calc Pharmacy 27.4 ml/min; Est GFR (African American) 24.4 ml/min; Magnesium 1.8 mg/dl (1.8-2.4); Phosphorus 2.9 mg/dl (2.5-4.9); Potassium 4.1 mmol/L (3.5-5.1)
--- NOTE | 2021-01-02 01:16 | History & Physical Report ---
Date of Service January 02, 2021 Assessment & Plan (1) DKA (diabetic ketoacidosis): Plan: 55 yo F w/ pMHx. of GERD, Constipation, Anemia, MDD, SUMIT, COPD, Type I DM (A1c 10.3 in june), Mitral regurg., Stage III CKD, HTN, HLD presents for abdominal pain and nausea found to be in DKA DKA unclear what set this off, potentially pump failure; no clear signs of infection based on CXR, UA or on exam initial BSG 1065, AG 18, BHB 66, UA with ketones and glucose ABG reassuring with pH 7.4 and CO2 28 initial K 6 down to 4.1 on recheck, started supplementation w/ 20 meq K/L - DKA protocol enacted - consulted ICU - consulted Pharmacy - Q4BMP, Mg., Phos. - initial bolus of 2L LR and fluid at a rate of 250/hr. - A1c ordered HTN - continue Amlodipine - continue Metoprolol hypothyroidism - continue Levothyroxine MDD, SUMIT - continue Duloxetine, Quetiapine HLD - continue Atorvastatin - continue Fenofibrate Constipation - continue Miralax Reflux - continue Omeprazole, Famotidine Code: full Diet: NPO DVT: SCDs (2) GERD (gastroesophageal reflux disease): (3) Chronic constipation: (4) Anemia: (5) Major depressive disorder, recurrent, moderate: (6) SUMIT (generalized anxiety disorder): (7) Hypothyroidism: (8) Gastroparesis: (9) Albright's esophagus: (10) Mitral regurgitation: (11) Sleep apnea: (12) Stage III chronic kidney disease: (13) COPD (chronic obstructive pulmonary disease): (14) Hypertension: (15) Hypercholesterolemia: History of Present Illness Chief Complaint: nausea, vomiting Primary Care Provider: Tammy Henao MD Chiquis Isabel is a 55-year-old female with a past medical history of GERD, constipation, anemia, MDD, SUMIT, COPD, DM type I (last A1c 10.3 June), Mitral re gurg., CKD III, HTN, and HLD here after feeling weak, vomiting and with abdominal pain since Thursday. She initially attributed her symptoms to being out in the heat. She was not able to check her blood sugars since Thursday but states that her blood sugars have been between 120-160 prior to this. She has a insulin pump and thought that this would take care of her blood sugar. She has not been able to keep any food down since this started and estimates that she has vomited 20 times. She is feeling lightheaded and has fallen multiple times over the last week. Her last A1C was 10.3 in June. She has had blood in her stool that she attributes to hemorrhoids. She also notes that she has palpitation with activity along with lightheadedness that she attributes to not eating well. ED course: - insulin drip started Allergies Allergy/AdvReac Type Severity Reaction Status Date / Time codeine Allergy Intermediate HIVES Verified 01/01/21 21:38 doxycycline Allergy Intermediate GI UPSET Verified 01/01/21 21:38 and hives fluconazole Allergy Intermediate HIVES, Verified 01/01/21 21:38 ITCHING, N/V SHORT OF BREATH latex Allergy Intermediate RASH, Verified 01/01/21 21:38 PAINFUL TO THE TOUCH Penicillins Allergy Unknown HAD Verified 01/01/21 21:38 ROCEPHIN IN PAST hydromorphone AdvReac Intermediate SEVERE Verified 01/01/21 21:38 HEADACHE, NAUSEA AND VOMITING, hives morphine AdvReac Intermediate SEVERE Verified 01/01/21 21:38 N/V, LUNDBERG. PT OK W/ ONE TIME DOSES Home Medications Medication Instructions Recorded Confirmed Type aspirin 81 mg tablet,delayed 81 mg PO HS 02/10/18 01/01/21 History release (Adult Aspirin Regimen) blood-glucose meter (OneTouch #1 ea 11/22/18 12/12/20 History UltraMini) subcutaneous insulin pump (Omnipod #1 ea 11/22/18 12/12/20 History Insulin Management) sucralfate 1 gram tablet (Carafate) 1 g PO TID PRN tab 03/14/19 01/01/21 History cholecalciferol (vitamin D3) 50 2,000 units PO QAM 06/29/19 01/01/21 History mcg (2,000 unit) capsule polyethylene glycol 3350 17 gram 17 gm PO DAILY PRN #14 ea 07/06/19 01/01/21 Rx oral powder packet (Miralax) fenofibrate nanocrystallized 48 mg 48 mg PO DAILY #90 tab 05/16/20 01/01/21 Rx tablet (Tricor) levothyroxine 50 mcg tablet 50 mcg PO DAILY #90 tab 07/06/20 01/01/21 Rx metoprolol succinate 25 mg 50 mg PO DAILY #180 tab 07/06/20 01/01/21 Rx tablet,extended release 24 hr famotidine 40 mg tablet (Pepcid) 40 mg PO HS #90 tab 08/08/20 01/01/21 Rx miscellaneous medical supply #2 ea 08/10/20 12/12/20 Rx amlodipine 2.5 mg tablet 2.5 mg PO DAILY #90 tab 09/05/20 01/01/21 Rx lisinopril 10 mg tablet 10 mg PO DAILY #90 tab 09/18/20 01/01/21 Rx acetone (urine) test (Ketostix) #25 ea 10/15/20 12/12/20 Rx Omnipod Insulin Refill (insulin #90 ea NS 10/16/20 12/12/20 Rx pump cartridge) insulin pump cartridge (Omnipod #30 ea 10/18/20 12/12/20 Rx Dash 5 Pack Pod) Novolog U-100 Insulin aspart 100 See Rx Instructions CONTINUOUS 11/05/20 01/01/21 Rx unit/mL subcutaneous solution SUBCUTANEOUS INFUSION .COMPLEX #90 (insulin aspart U-100) ml NS atorvastatin 20 mg tablet 20 mg PO DAILY #90 tab 11/15/20 01/01/21 Rx blood sugar diagnostic (FreeStyle #300 ea 11/15/20 12/12/20 Rx Test) BD Insulin Syringe Ultra-Fine 0.5 #90 ea NS 11/29/20 12/12/20 Rx mL 31 gauge x 5/16" (insulin syringe-needle U-100) insulin detemir U-100 100 unit/mL 35 unit SUBCUT DAILY box 11/29/20 01/01/21 History (3 mL) subcutaneous pen insulin syringe,safetyneedle 0.5 #100 ea 11/29/20 12/12/20 Rx mL 31 gauge x 15/64" (Assure ID Insulin Safety) pen needle, diabetic 31 gauge x #100 ea 12/12/20 12/12/20 Rx 3/16" (BD Ultra-Fine Mini Pen Needle) duloxetine 30 mg capsule,delayed 30 mg PO QAM #30 cap 12/14/20 01/01/21 Rx release (Cymbalta) duloxetine 60 mg capsule,delayed 60 mg PO QAM #30 cap 12/14/20 01/01/21 Rx release (Cymbalta) quetiapine 300 mg tablet 450 mg PO HS #45 tab 12/14/20 01/01/21 Rx suvorexant 20 mg tablet (Belsomra) 20 mg PO HS PRN 30 Days #30 tab 12/14/20 01/01/21 Rx tapentadol 100 mg tablet (Nucynta) 100 mg PO .COMPLEX #120 tab 12/25/20 01/01/21 Rx esomeprazole magnesium 40 mg 40 mg PO DAILY #90 cap 12/26/20 01/01/21 Rx capsule,delayed release Past Med/Surg History Medical History Anxiety and depression Albright's esophagus Cervical disc disease COPD (chronic obstructive pulmonary disease) Fatty liver Fibular hemimelia of left lower extremity Gastroparesis History of Lyme disease Hypercholesterolemia Hypertension Hypothyroidism Iron deficiency anemia Mitral regurgitation "MILD">FOLLOWS WITH DR. 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 Secondary hyperparathyroidism of renal origin Sleep apnea NO DEVICE Stage III chronic kidney disease Type 1 diabetes mellitus INSULIN PUMP Vitamin D deficiency Surgical History Fusion of spine CERVICAL H/O arthroscopy of right knee H/O shoulder surgery LEFT History of anesthesia reaction SLOW TO WAKE UP History of cholecystectomy History of colonoscopy History of esophagogastroduodenoscopy (EGD) History of mandibular surgery COULD NOT OPEN MOUTH/TITANIUM IN [place] 2013 History of tooth extraction Hx of BKA LEFT BKA Family History Other Adopted Social History Smoking Status: Former smoker Second Hand Exposure: No; Do You Dip or Chew Tobacco: No; Hx Alcohol Use: No Hx Substance Use: No Preferred Language: Ethiopian Communication Ability: Effective 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: No Beliefs That Will Affect Care: None marital status: Current Living Situation: Significant Other current occupational status: unemployed and disabled Feels Safe at Home: Yes Safety Concerns: Feels Safe At This Time Dental Care, Regularly: No Physical Activity Frequency: 1-2 Times per Week Seatbelt Use: always Assistive Devices: Prosthesis Review of Systems Review of Systems: Constitutional: denies fevers admits chills, nausea, vomiting, fatigue, diaphoresis, weight loss 25 lbs over the last 2-3 months Head: denies trauma, confusion admits lightheadedness, vision changes Neurologic: denies slurring of speech ENT: admits rhinorrhea, stuffiness, sneezing, sore throat Cardiac: admits palpitations Pulm.: admits cough, shortness of breath GI: admits constipation, diarrhea blood in stool Physical Exam Constitutional: cooperative; no acute distress Eyes: PERRL, conjunctivae normal, anicteric sclerae ENMT: external ear and nose normal, oropharynx normal Neck: normal visual inspection Respiratory: normal respiratory effort; no respiratory distress Auscultation: lungs clear to auscultation bilaterally and + bronchovesicular breath sounds Cardiovascular: RRR, no murmur, no edema Gastrointestinal (Abdomen): - epigastric tenderness Musculoskeletal: - left BKA Skin: no rashes, warm and dry Neurologic: no focal motor deficits Psychiatric: Orientation: alert and oriented x 3 Results & Data Results & Data ([facility]) Vital Signs (Past 12 Hours) Vital Signs Temp Pulse Resp BP Pulse Ox 01/02/21 00:30 114 H 20 110/68 95 01/02/21 00:00 114 H 24 115/76 98 01/01/21 23:30 120 H 22 106/66 98 01/01/21 23:00 117 H 24 127/75 97 01/01/21 22:30 121 H 22 124/69 98 01/01/21 22:00 121 H 20 136/75 98 01/01/21 21:38 122 H 24 121/65 97 01/01/21 20:21 36.8 C 120 H 20 95/66 L 95 CBC Results Results Complete Blood Count Results: RBC 3.97 M/uL (4.2-5.4) L 01/02/21 WBC 11.79 K/uL (4.8-10.8) H 01/02/21 Hgb 10.1 g/dL (12.0-16.0) L 01/02/21 Hct 30.8 % (37-47) L 01/02/21 Plt Count 379 K/uL (130-400) 01/02/21 Chemistry (BMP) Results BMP Results: Sodium 140 mmol/L (136-145) 01/02/21 Potassium 4.3 mmol/L (3.5-5.1) 01/02/21 Chloride 106 mmol/L (98-107) 01/02/21 BUN 21 mg/dl (7-18) H 01/02/21 Creatinine 1.80 mg/dl (0.6-1.2) H 01/02/21 Glucose 62 mg/dl (70-99) L 01/02/21 Code Status & VTE Plan VTE Prophylaxis Plan VTE Prophylaxis will be ordered: Yes Critical Care Time 40 minutes Supervising Physician Co-Signing Physician Notes Attending addendum: I have physically seen this patient, have supervised the medical residents activities, and agree with the H&P unless as otherwise noted. Assessment and Plan: DKA- Patient will be admitted to the ICU DKA protocol Patient did receive 2 L LR in ED, will be continued 1230 mils per hour, replacing with potassium chloride per protocol Follow every 4 laboratories: BMP, magnesium and phosphorus levels Hypertension- Continue amlodipine and metoprolol with hold parameters Hypothyroidism- Continue levothyroxine MDD/SUMIT- Continue duloxetine and quetiapine Hyperlipidemia- Continue atorvastatin and fenofibrate GERD- Continue omeprazole/pantoprazole and famotidine Remaining orders and notations as noted Resident Activity Tracking Resident Involvement: Resident Care Provided Care Provided: Adult Hospital Medicine (1) Stage III chronic kidney disease Chronic kidney disease stage 3 subtype: unspecified whether 3a or 3b Qualified Code(s): N18.30 - Chronic kidney disease, stage 3 unspecified (2) Hypothyroidism Hypothyroidism type: unspecified Qualified Code(s): E03.9 - Hypothyroidism, unspecified (3) Hypertension Hypertension type: essential hypertension Qualified Code(s): I10 - Essential (primary) hypertension
[2021-01-02 01:23] LABS: Beta-Hydroxybutyrate 25.56 mg/dl (0.2-2.81)
[2021-01-02] MEDS ORDERED: INSULIN REGULAR 250 UNITS in SODIUM CHLORIDE 0.9% 247.5 ML IV SCH (01:45)
[2021-01-02] MEDS: LACTATED RINGER'S 1,000 ML IV SCH ×2 (01:52→02:57)
[2021-01-02] MEDS: SODIUM CHLORIDE 0.9% 1000ML 1,000 ML IV SCH ×2 (01:55→10:06)
[2021-01-02] MEDS ORDERED: POTASSIUM CHLORIDE 20 MEQ in SODIUM CHLORIDE 0.45 % 1,000 ML IV SCH (01:57)
--- NOTE | 2021-01-02 02:22 | Critical Care Consultation ---
Date of Consultation January 02, 2021 Assessment & Plan (1) DKA (diabetic ketoacidosis): Impression: 55-year-old female with type 1 diabetes presents to the ICU in severe DKA with initial glucose 1067, electrolyte abnormalities, TEOFILO. Neuro - [facility] ICU: Negative Anxiety and depressioncontinue home med regimen Cardiac - HTNhold antihypertensives for now as pressures remain soft HLDcontinue statin Currently NSR and hemodynamically stable, continuous monitor on telemetry Respiratory - No history of pulmonary disease. Mild tachypnea appears to be resolving likely compensatory to metabolic acidosis. Chest clear to auscultation Chest x-ray unremarkable Continuous monitoring on pulse ox GI - Famotidine N.p.o. for now, will advance to diabetic diet when appropriate RENAL/LYTES - TEOFILO on CKD stage IIIcreatinine initially elevated 2.2 now 2.46. Baseline creatinine appears to be around 1.6 -Suspect this is prerenal in the setting of DKA -Continue with fluid resuscitation -Renally dose medications and avoid nephrotoxins -Monitor BMPs, replete electrolytes as indicated - Strict I's and O's ENDO - DKAinitial glucose 1067, BHA 66.9, anion gap 18 -Transitioned home insulin pump to insulin drip -Glucose and acidosis appear to be improving appropriately with fluid resuscitation and insulin drip -Continue with DKA protocol -Every 4 hours BMPs -Consult pharmacy glycemic control, consult shoe stock associate -A1c pending Hypothyroidcontinue Synthroid HEME - Iron deficiency anemiaH&H stable -Monitor routine CBCs ID - Patient with leukocytosis, elevated pro-Kiko. 3-day history of nausea vomiting diarrhea. -Abdominal exam benign, LFTs within normal limits, lipase normal -Chest x-ray unremarkable, UA unremarkable -Blood cultures pending -We will continue empiric cefepime for now LINES/IV ACCESS - Peripheral IVs DVT PROPHYLAXIS - SCDs Thank you for allowing us to participate in the care of this patient. Please refer to my attending physician's documentation for any further recommendations. (2) GERD (gastroesophageal reflux disease): (3) Chronic constipation: (4) Anemia: (5) Major depressive disorder, recurrent, moderate: (6) SUMIT (generalized anxiety disorder): (7) Hypoglycemia unawareness in type 1 diabetes mellitus: (8) Hypothyroidism: (9) Type 1 diabetes mellitus: (10) Albright's esophagus: (11) Osteoarthritis of knee: (12) Cervical disc disease: (13) Fatty liver: (14) Gastroparesis: (15) Iron deficiency anemia: (16) Mitral regurgitation: (17) Secondary hyperparathyroidism of renal origin: (18) Stage III chronic kidney disease: (19) Alcohol dependence in remission: (20) Phantom pain after amputation of lower extremity: (21) COPD (chronic obstructive pulmonary disease): (22) Hypertension: (23) Hypercholesterolemia: Supervising Physician Co-Signing Physician Notes Patient separately seen and examined from [facility]. Agree with his assessment and plan aside for any additions/exceptions noted: DKA appears to have resolved. We are transitioning with long-acting insulin. We will initiate a diet. The patient is stable for downgrade to the floor with telemetry. Diabetes and insulin education is required. Continue antibiotic therapy for 48 hours and consider discontinuing if cultures negative. History of Present Illness Attending Physician: Raymond Liriano MD History of Present Illness Patient is a 55-year-old female COPD, HTN, HLD, hypothyroid, GERD, constipation, anemia, CKD stage III, mitral regurg, depression, anxiety, and DM type I (last A1c 10.3 June). Patient presented to the emergency department with complaints of nausea and vomiting ongoing since Thursday and feeling lightheaded and weak. Patient states that she is not checked her glucose since Thursday but BSG usually ranges 120-160. She also reports a few episodes of diarrhea yesterday morning. In the emergency department patient was found to be in DKA with BSG over 1000, anion gap, and BHA 66. UA positive for ketones and blood gas showed compensated metabolic acidosis. She was given IV fluid bolus and placed on i nsulin drip. Patient now being transferred to ICU for further management at this time. On arrival to the ICU the patient is alert and oriented. She complains of dizziness, nausea, generalized abdominal pain, and fatigue which has been ongoing since Thursday. She currently denies headache, sore throat or recent respiratory illness, cough, shortness of breath, chest pain, palpitations, or swelling in hands and feet. Allergies Allergy/AdvReac Type Severity Reaction Status Date / Time codeine Allergy Intermediate HIVES Verified 01/01/21 21:38 doxycycline Allergy Intermediate GI UPSET Verified 01/01/21 21:38 and hives fluconazole Allergy Intermediate HIVES, Verified 01/01/21 21:38 ITCHING, N/V SHORT OF BREATH latex Allergy Intermediate RASH, Verified 01/01/21 21:38 PAINFUL TO THE TOUCH Penicillins Allergy Unknown HAD Verified 01/01/21 21:38 ROCEPHIN IN PAST hydromorphone AdvReac Intermediate SEVERE Verified 01/01/21 21:38 HEADACHE, NAUSEA AND VOMITING, hives morphine AdvReac Intermediate SEVERE Verified 01/01/21 21:38 N/V, LUNDBERG. PT OK W/ ONE TIME DOSES Home Medications Medication Instructions Recorded Confirmed Type aspirin 81 mg tablet,delayed 81 mg PO HS 02/10/18 01/01/21 History release (Adult Aspirin Regimen) blood-glucose meter (OneTouch #1 ea 11/22/18 12/12/20 History UltraMini) subcutaneous insulin pump (Omnipod #1 ea 11/22/18 12/12/20 History Insulin Management) sucralfate 1 gram tablet (Carafate) 1 g PO TID PRN tab 03/14/19 01/01/21 History cholecalciferol (vitamin D3) 50 2,000 units PO QAM 06/29/19 01/01/21 History mcg (2,000 unit) capsule polyethylene glycol 3350 17 gram 17 gm PO DAILY PRN #14 ea 07/06/19 01/01/21 Rx oral powder packet (Miralax) fenofibrate nanocrystallized 48 mg 48 mg PO DAILY #90 tab 05/16/20 01/01/21 Rx tablet (Tricor) levothyroxine 50 mcg tablet 50 mcg PO DAILY #90 tab 07/06/20 01/01/21 Rx metoprolol succinate 25 mg 50 mg PO DAILY #180 tab 07/06/20 01/01/21 Rx tablet,extended release 24 hr famotidine 40 mg tablet (Pepcid) 40 mg PO HS #90 tab 08/08/20 01/01/21 Rx miscellaneous medical supply #2 ea 08/10/20 12/12/20 Rx amlodipine 2.5 mg tablet 2.5 mg PO DAILY #90 tab 09/05/20 01/01/21 Rx lisinopril 10 mg tablet 10 mg PO DAILY #90 tab 09/18/20 01/01/21 Rx acetone (urine) test (Ketostix) #25 ea 10/15/20 12/12/20 Rx Omnipod Insulin Refill (insulin #90 ea NS 10/16/20 12/12/20 Rx pump cartridge) insulin pump cartridge (Omnipod #30 ea 10/18/20 12/12/20 Rx Dash 5 Pack Pod) Novolog U-100 Insulin aspart 100 See Rx Instructions CONTINUOUS 11/05/20 01/01/21 Rx unit/mL subcutaneous solution SUBCUTANEOUS INFUSION .COMPLEX #90 (insulin aspart U-100) ml NS atorvastatin 20 mg tablet 20 mg PO DAILY #90 tab 11/15/20 01/01/21 Rx blood sugar diagnostic (FreeStyle #300 ea 11/15/20 12/12/20 Rx Test) BD Insulin Syringe Ultra-Fine 0.5 #90 ea NS 11/29/20 12/12/20 Rx mL 31 gauge x 5/16" (insulin syringe-needle U-100) insulin detemir U-100 100 unit/mL 35 unit SUBCUT DAILY box 11/29/20 01/01/21 History (3 mL) subcutaneous pen insulin syringe,safetyneedle 0.5 #100 ea 11/29/20 12/12/20 Rx mL 31 gauge x 15/64" (Assure ID Insulin Safety) pen needle, diabetic 31 gauge x #100 ea 12/12/20 12/12/20 Rx 3/16" (BD Ultra-Fine Mini Pen Needle) duloxetine 30 mg capsule,delayed 30 mg PO QAM #30 cap 12/14/20 01/01/21 Rx release (Cymbalta) duloxetine 60 mg capsule,delayed 60 mg PO QAM #30 cap 12/14/20 01/01/21 Rx release (Cymbalta) quetiapine 300 mg tablet 450 mg PO HS #45 tab 12/14/20 01/01/21 Rx suvorexant 20 mg tablet (Belsomra) 20 mg PO HS PRN 30 Days #30 tab 12/14/20 01/01/21 Rx tapentadol 100 mg tablet (Nucynta) 100 mg PO .COMPLEX #120 tab 12/25/20 01/01/21 Rx esomeprazole magnesium 40 mg 40 mg PO DAILY #90 cap 12/26/20 01/01/21 Rx capsule,delayed release Patient History Medical History Anxiety and depression Albright's esophagus Cervical disc disease COPD (chronic obstructive pulmonary disease) Fatty liver Fibular hemimelia of left lower extremity Gastroparesis History of Lyme disease Hypercholesterolemia Hypertension Hypothyroidism Iron deficiency anemia Mitral regurgitation "MILD">FOLLOWS WITH DR. 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 Secondary hyperparathyroidism of renal origin Sleep apnea NO DEVICE Stage III chronic kidney disease Type 1 diabetes mellitus INSULIN PUMP Vitamin D deficiency Surgical History Fusion of spine CERVICAL H/O arthroscopy of right knee H/O shoulder surgery LEFT History of anesthesia reaction SLOW TO WAKE UP History of cholecystectomy History of colonoscopy History of esophagogastroduodenoscopy (EGD) History of mandibular surgery COULD NOT OPEN MOUTH/TITANIUM IN [place] 2013 History of tooth extraction Hx of BKA LEFT BKA Family History Other Adopted Social History Smoking Status: Former smoker Second Hand Exposure: No; Do You Dip or Chew Tobacco: No; Hx Alcohol Use: No Hx Substance Use: No Preferred Language: Belarusian Communication Ability: Effective 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 Required: No Beliefs That Will Affect Care: None marital status: Current Living Situation: Significant Other current occupational status: unemployed and disabled Feels Safe at Home: Yes Safety Concerns: Feels Safe At This Time Dental Care, Regularly: No Physical Activity Frequency: 1-2 Times per Week Seatbelt Use: always Assistive Devices: Prosthesis Review of Systems Constitutional: as per Subjective / HPI Physical Exam Constitutional: comfortable and + lethargic; no acute distress Eyes: PERRL, conjunctivae normal, anicteric sclerae ENMT: external ear and nose normal, oropharynx normal Neck: trachea midline, no thyromegaly Respiratory: normal respiratory effort, lungs clear to auscultation Cardiovascular: RRR, no murmur, no edema Heart Sounds: normal S1 and normal S2 Extremities: normal capillary refill; no edema Gastrointestinal (Abdomen): normal bowel sounds, soft, nontender, no hepatosplenomegaly Musculoskeletal: no cyanosis or clubbing, extremities motor strength 5/5 Skin: no rashes, warm and dry Neurologic: PERRL, EOMI, accommodation nl, no face palsy, no dysarthria Psychiatric: A+Ox3, euthymic affect Results & Data Results & Data ([facility]) Vital Signs (Past 12 Hours) Vital Signs Temp Pulse Pulse Resp BP BP Pulse Ox 01/02/21 01:58 36.8 C 106 H 22 82/56 L 97 01/02/21 01:09 109 H 26 H 102/53 L 97 01/02/21 00:30 114 H 20 110/68 95 01/02/21 00:00 114 H 24 115/76 98 01/01/21 23:30 120 H 22 106/66 98 01/01/21 23:00 117 H 24 127/75 97 01/01/21 22:30 121 H 22 124/69 98 01/01/21 22:00 121 H 20 136/75 98 01/01/21 21:38 122 H 24 121/65 97 01/01/21 20:21 36.8 C 120 H 20 95/66 L 95 Coding Level of Care Code 02394 Inpt Consult Level 5 Diagnoses GERD (gastroesophageal reflux disease) K21.9 Chronic constipation K59.09 Anemia D64.9 Major depressive disorder, recurrent, moderate F33.1 SUMIT (generalized anxiety disorder) F41.1 Hypoglycemia unawareness in type 1 diabetes mellitus E10.649 Hypothyroidism E03.9 Hypothyroidism type: unspecified Type 1 diabetes mellitus E10.9 Albright's esophagus K22.70 Osteoarthritis of knee M17.10 Cervical disc disease M50.90 Fatty liver K76.0 Gastroparesis K31.84 Iron deficiency anemia D50.9 Mitral regurgitation I34.0 Secondary hyperparathyroidism of renal origin N25.81 Stage III chronic kidney disease N18.30 Chronic kidney disease stage 3 subtype: unspecified whether 3a or 3b Alcohol dependence in remission F10.21 Phantom pain after amputation of lower extremity G54.6 COPD (chronic obstructive pulmonary disease) J44.9 Hypertension I10 Hypertension type: essential hypertension Hypercholesterolemia E78.00 DKA (diabetic ketoacidosis) E11.10 (1) Stage III chronic kidney disease Chronic kidney disease stage 3 subtype: unspecified whether 3a or 3b Qualified Code(s): N18.30 - Chronic kidney disease, stage 3 unspecified (2) Hypothyroidism Hypothyroidism type: unspecified Qualified Code(s): E03.9 - Hypothyroidism, unspecified (3) Hypertension Hypertension type: essential hypertension Qualified Code(s): I10 - Essential (primary) hypertension
[2021-01-02] MEDS ORDERED: SODIUM CHLOR 0.45% + 20MEQ KCL 20 MEQ/1,000 ML BAG IV SCH (02:30)
[2021-01-02] MEDS ORDERED: SUCRALFATE 1 GM TAB PO PRN (02:32)
[2021-01-02] MEDS ORDERED: ICU PROTOCOL FOR HYPERGLYCEMIA PRN (02:32)
[2021-01-02] MEDS ORDERED: POLYETHYLENE (MIRALAX) 17 GM PACK PO PRN (02:32)
[2021-01-02] MEDS ORDERED: MAGNESIUM SULFATE / D5W 1 GM/100 ML BAG IV ONE ×2 (03:30→05:50)
[2021-01-02] MEDS ORDERED: D5W AND 1/2NSS + 20MEQ KCL 20 MEQ/1,000 ML BAG IV SCH (05:30)
[2021-01-02] MEDS: LEVOTHYROXINE SODIUM 50 MCG TABLET PO SCH (05:31)
[2021-01-02] MEDS: DEXTROSE 50% 50 ML SYRINGE IV PRN ×3 (05:38→11:52)
[2021-01-02] MEDS ORDERED: DEXTROSE 50% 50 ML SYRINGE IV ONE (05:39)
[2021-01-02 05:42] LABS: BUN Creatinine Ratio 17.1 (10-20); Calcium 9.1 mg/dl (8.5-10.1); Creatinine Clr Calc Pharmacy 36.8 ml/min; Est GFR (African American) 34.9 ml/min; Est GFR (Non-African American) 30.1 ml/min; Magnesium 1.7 mg/dl (1.8-2.4); Phosphorus 2.4 mg/dl (2.5-4.9); Potassium 3.5 mmol/L (3.5-5.1)
[2021-01-02] MEDS ORDERED: INSULIN ASPART 100 UNITS/ML 3 ML PEN SC SCH ×2 (06:00→07:30)
[2021-01-02] MEDS: POTASSIUM CHLORIDE 40 MEQ in D5W AND 1/2NSS 1,000 ML IV SCH ×2 (06:01→11:17)
[2021-01-02] MEDS: TAPENTADOL HCL 50 MG TAB PO PRN ×3 (07:10→21:14)
[2021-01-02 07:13] LABS: Estimated Average Glucose 263 mg/dl; Hemoglobin A1C 10.8 % (4.5-5.6)
--- NOTE | 2021-01-02 08:35 | XRay Report ---
XR abdomen 2V w PA chest INDICATION: MN ^n/v . TECHNIQUE: 2 views of the abdomen were obtained. A single view of the chest was obtained. Comparison: None available at the time of this dictation. FINDINGS: No lines and tubes are seen. The cardiomediastinal silhouette is normal. The lungs are clear. No evid ence of pleural effusion or pneumothorax. The osseous structures are grossly unremarkable. The bowel gas pattern is nonobstructive. A moderate amount of stool is noted within the large bowel. IMPRESSION: Nonobstructive bowel gas pattern. ACT 112: Negative or not required by law. Electronically signed by: Micheal Rose M.D. 01/02/2021 8:33 AM
[2021-01-02] MEDS: DULoxetine HCL 30 MG CAP PO SCH (08:40)
[2021-01-02] MEDS: METOPROLOL SUCC 50MG EXT REL TAB PO SCH (08:40)
[2021-01-02] MEDS: lisinopril 10 MG TAB PO SCH (08:40)
[2021-01-02] MEDS: FENOFIBRATE NANOCRYSTALLIZED 48 MG TABLET PO SCH (08:40)
[2021-01-02] MEDS: amLODIPine BESYLATE 5 MG TAB PO SCH (08:40)
[2021-01-02] MEDS: PANTOprazole 40 MG TAB PO SCH (08:40)
[2021-01-02] MEDS: ATORVASTATIN 20 MG TAB PO SCH (08:40)
[2021-01-02] MEDS ORDERED: DULoxetine HCL 60 MG CAP PO SCH (09:00)
[2021-01-02 09:02] LABS: Basophils # (auto) 0.05 K/uL (0-0.2); Basophils % (auto) 0.4 %; Calcium 9.4 mg/dl (8.5-10.1); Creatinine Clr Calc Pharmacy 41.1 ml/min; Eosinophils # (auto) 0.22 K/uL (0-0.5); Eosinophils % (auto) 1.9 %; Est GFR (African American) 39.8 ml/min; Est GFR (Non-African American) 34.4 ml/min; Hematocrit (blood only) 30.8 % (37-47); Hemoglobin 10.1 g/dL (12.0-16.0); Immature Granulocytes # (auto) 0.02 K/uL (0.00-0.02); Immature Granulocytes % (auto) 0.2 %; Lymphocytes # (auto) 4.71 K/uL (1.2-3.4); Lymphocytes % (auto) 39.9 %; Magnesium 2.7 mg/dl (1.8-2.4); Mean Corpuscular Hemoglobin 25.4 pg (25-34); Mean Corpuscular Hgb Conc 32.8 g/dL (32-36); Mean Corpuscular Volume 77.6 fL (80-100); Monocytes # (auto) 0.92 K/uL (0.11-0.59); Monocytes % (auto) 7.8 %; Neutrophils # (auto) 5.87 K/uL (1.4-6.5); Neutrophils % (auto) 49.8 %; Phosphorus 2.6 mg/dl (2.5-4.9); Platelet Count 379 K/uL (130-400); Potassium 4.3 mmol/L (3.5-5.1); RDW Coefficient of Variation 14.9 % (11.5-14.5); RDW Standard Deviation 42.5 fL (36.4-46.3); Red Blood Count 3.97 M/uL (4.2-5.4); White Blood Count 11.79 K/uL (4.8-10.8)
[2021-01-02] MEDS ORDERED: INSULIN DETEMIR FLEXPEN/FLEX TOUCH 100 UNITS/ML 3ML SC ONE (10:15)
[2021-01-02] MEDS: INSULIN ASPART 100 UNITS/ML 3 ML PEN SC SCH ×5 (11:18→21:00)
[2021-01-02] MEDS ORDERED: CEFEPIME 2,000 MG in SYRINGE 0 ML IV SCH (12:00)
[2021-01-02 12:45] LABS: BUN Creatinine Ratio 16.2 (10-20); Calcium 8.7 mg/dl (8.5-10.1); Creatinine Clr Calc Pharmacy 41.3 ml/min; Est GFR (African American) 40.1 ml/min; Est GFR (Non-African American) 34.6 ml/min; Magnesium 2.2 mg/dl (1.8-2.4); Phosphorus 2.6 mg/dl (2.5-4.9); Potassium 4.7 mmol/L (3.5-5.1)
[2021-01-02] MEDS ORDERED: INSULIN PROTOCOL GOAL RANGE ONE (13:03)
--- NOTE | 2021-01-02 13:29 | Pharmacy Report ---
Pharmacy Glycemic Short Note 2 - Date of Service January 02, 2021 - Glycemic Short BSG Results (Last 24 hours): 01/01/21 01/01/21 01/01/21 20:45 22:22 23:15 Glucose 1067 H* 869 H* POC Glucose > 600 H* 01/02/21 01/02/21 01/02/21 00:29 01:05 01:08 Glucose 716 H* POC Glucose 566 H* 569 H* 01/02/21 01/02/21 01/02/21 02:16 03:17 04:18 Glucose POC Glucose 454 H* 341 H* 190 H 01/02/21 01/02/21 01/02/21 04:27 05:33 05:56 Glucose 150 H POC Glucose 70 167 H 01/02/21 01/02/21 01/02/21 07:02 07:20 07:34 Glucose POC Glucose 140 H 138 H 127 H 01/02/21 01/02/21 01/02/21 07:56 08:02 09:29 Glucose 196 H POC Glucose 195 H 245 H 01/02/21 01/02/21 01/02/21 10:30 11:31 11:48 Glucose POC Glucose 216 H 169 H 168 H 01/02/21 01/02/21 01/02/21 12:06 12:11 13:02 Glucose 216 H POC Glucose 221 H 191 H OUTPATIENT ANTIDIABETIC REGIMEN: * Levemir 35 units Q HS * Novolog CF 28; CR 5 * A1c = 10.8% 01/06/21 ASSESSMENT: * Type 1 diabetic admitted for NVD x 3 days, severe hyperglycemia but only mild- moderate DKA per labs due to compensation, hyperkalemia, TEOFILO * Initial labs: GLU 1067, AG 17, Bicarb 22, BOHB 66.92, arterial pH 7.4, Na 119 (willem Na ~139), calc serum osmo < 320 * IV fluid resuscitation and IV insulin infusion per protocol initiated * This AM AG acidosis has resolved, pt mentating clearly and requesting a diet. * Plan to give Levemir dose x 1 this AM, to allow for transition off the insulin drip today. IV fluids containing dextrose still infusion however diet has been advanced to Clears. Would recommend removing dextrose from maint IVFs to allow for easier transition off drip. PLAN FOR INPATIENT GLYCEMIC CONTROL: * Hold outpatient oral diabetes medications * Remove dextrose from maint IVFs now that diet has been ordered * Continue IV insulin drip per protocol for time being, however will likely transition off this afternoon / evening * Basal insulin * Levemir 40 units SQ x 1 this AM * Bolus insulin * Nutritional / Prandial insulin per carb ratio of 1 unit per 5 grams CHO consumed PLAN FOR DISCHARGE: * to be determined
[2021-01-02] MEDS: HEPARIN SOD 5,000 UNIT/0.5 ML VIAL SQ SCH ×2 (14:12→21:17)
--- NOTE | 2021-01-02 15:29 | Electrocardiogram Report ---
Test Reason : Blood Pressure : / mmHG Vent. Rate : 119 BPM Atrial Rate : 119 BPM P-R Int : 164 ms QRS Dur : 086 ms QT Int : 318 ms P-R-T Axes : 062 060 041 degrees QTc Int : 447 ms Sinus tachycardia Otherwise normal ECG When compared with ECG of 17-AUG-2018 19:31, T wave amplitude has increased in Anterior leads Confirmed by Kam Mondragon ([id number]) on 01/02/2021 3:28:31 PM Referred By: REFERRED SELF Confirmed By:Kam Mondragon
[2021-01-02 16:38] LABS: BUN Creatinine Ratio 15.9 (10-20); Calcium 8.9 mg/dl (8.5-10.1); Creatinine Clr Calc Pharmacy 46.5 ml/min; Est GFR (African American) 46.2 ml/min; Est GFR (Non-African American) 39.9 ml/min; Magnesium 2.5 mg/dl (1.8-2.4); Potassium 4.6 mmol/L (3.5-5.1)
[2021-01-02 16:43] LABS: Phosphorus 2.5 mg/dl (2.5-4.9); Troponin I 0.039 ng/ml (0-0.045)
--- NOTE | 2021-01-02 17:30 | Communication Note ---
Date of Service: January 02, 2021 Feeling better overall. Does have some epigastric pain. Notes that she was sick before her sugar started to get out of control. Had some diarrhea, but this seems to have slowed down. Tolerating clear liquid diet without any worsening pain or nausea afterwardsfeels very hungry and really would like to eat. Relates that she thinks that her sugars spiked because of getting sick, although she does not deny a degree of poor baseline control. Vitals noted, in general she is awake and alert pleasant no distress does appear fatigued. HEENT normocephalic atraumatic mucous membranes moist. Breathing unlabored no accessory muscle use good effort. Abdomen is soft mildly distended she does have epigastric tenderness without guarding rebound or rigidity. No other abdominal tenderness. Nowhere else does she have guarding rebound or rigidity as well. Labs and diagnostics noted. DKAappears most likely a viral gastroenteritis was what set her off. She has been hydrated, she has been given insulin drip, sugars are improved, safe/stable for transition out of the ICU and onto subcu insulin. Epigastric painseems most consistent with mucosal diseaselikely a degree of gastritis from her viral GE and physiologic stress. Already on PPI, temporarily will add an H2 twice daily, can add scheduled Carafate on top of that (right now she has it as needed) if it is not helping enough. Serial exams. Does seem safe to advance diet. Uncontrolled type 1 diabeteswill need to educate further, today patient was very fatigued, and while she seemed receptive to having the conversation, not necessarily today. Mild leukocytosisno overt signs or symptoms of infection beyond that of the viral gastroenteritis that likely set her off. Serial exams, but okay to DC empiric antibiotics and follow closely. AKIimproved with fluids DVT prophylaxisheparin subcu
[2021-01-02] MEDS ORDERED: INSULIN ASPART 100 UNITS/ML 3 ML PEN SC ONE (17:54)
[2021-01-02] MEDS: CARBOHYDRATES FOR HYPOGLYCEMIA PO PRN ×2 (20:35→21:00)
[2021-01-02] MEDS ORDERED: FAMOTIDINE 20 MG TAB PO SCH ×3 (21:00)
[2021-01-02] MEDS ORDERED: ASPIRIN 81 MG ECTAB PO SCH (21:00)
[2021-01-02] MEDS ORDERED: QUEtiapine FUMARATE 300 MG TABLET PO SCH (21:00)
[2021-01-02 21:31] LABS: BUN Creatinine Ratio 11.9 (10-20); Calcium 8.7 mg/dl (8.5-10.1); Creatinine Clr Calc Pharmacy 37.4 ml/min; Est GFR (African American) 35.6 ml/min; Est GFR (Non-African American) 30.7 ml/min; Potassium 4.3 mmol/L (3.5-5.1)
[2021-01-02 21:36] LABS: Troponin I 0.027 ng/ml (0-0.045)
[2021-01-03] MEDS ORDERED: CEFEPIME 2,000 MG in SYRINGE 0 ML IV SCH
[2021-01-03] MEDS: DEXTROSE 50% 50 ML SYRINGE IV PRN (00:50)
[2021-01-03] MEDS: INSULIN ASPART 100 UNITS/ML 3 ML PEN SC SCH ×4 (04:08→12:23)
--- NOTE | 2021-01-03 05:24 | Billing Data ---
Date of Service January 03, 2021 Coding Level of Care Code Critical Care 1st - mins
[2021-01-03] MEDS: HEPARIN SOD 5,000 UNIT/0.5 ML VIAL SQ SCH ×2 (05:55→15:12)
[2021-01-03] MEDS: LEVOTHYROXINE SODIUM 50 MCG TABLET PO SCH (05:56)
[2021-01-03] MEDS: TAPENTADOL HCL 50 MG TAB PO PRN ×2 (06:03→12:23)
[2021-01-03 07:43] LABS: Basophils # (auto) 0.06 K/uL (0-0.2); Basophils % (auto) 0.6 %; Eosinophils # (auto) 0.29 K/uL (0-0.5); Hematocrit (blood only) 33.2 % (37-47); Hemoglobin 10.3 g/dL (12.0-16.0); Immature Granulocytes # (auto) 0.03 K/uL (0.00-0.02); Immature Granulocytes % (auto) 0.3 %; Lymphocytes # (auto) 3.48 K/uL (1.2-3.4); Lymphocytes % (auto) 35.6 %; Mean Corpuscular Hemoglobin 25.2 pg (25-34); Mean Corpuscular Volume 81.4 fL (80-100); Mean Platelet Volume 9.3 fL (7.4-10.4); Monocytes % (auto) 6.1 %; Neutrophils # (auto) 5.31 K/uL (1.4-6.5); Neutrophils % (auto) 54.4 %; Platelet Count 346 K/uL (130-400); RDW Coefficient of Variation 15.6 % (11.5-14.5); RDW Standard Deviation 46.5 fL (36.4-46.3); Red Blood Count 4.08 M/uL (4.2-5.4); White Blood Count 9.77 K/uL (4.8-10.8)
[2021-01-03] MEDS: PANTOprazole 40 MG TAB PO SCH (08:39)
[2021-01-03] MEDS: amLODIPine BESYLATE 5 MG TAB PO SCH (08:39)
[2021-01-03] MEDS: lisinopril 10 MG TAB PO SCH (08:39)
[2021-01-03] MEDS: FENOFIBRATE NANOCRYSTALLIZED 48 MG TABLET PO SCH (08:39)
[2021-01-03] MEDS: ATORVASTATIN 20 MG TAB PO SCH (08:39)
[2021-01-03] MEDS: METOPROLOL SUCC 50MG EXT REL TAB PO SCH (08:41)
[2021-01-03] MEDS: DULoxetine HCL 30 MG CAP PO SCH (08:41)
[2021-01-03] MEDS ORDERED: INSULIN DETEMIR FLEXPEN/FLEX TOUCH 100 UNITS/ML 3ML SC SCH (09:00)
--- NOTE | 2021-01-03 09:50 | Hospitalist Progress Note ---
Date of Service January 03, 2021 Assessment & Plan (1) DKA (diabetic ketoacidosis): Plan: 55 yo F w/ pMHx. of GERD, Constipation, Anemia, MDD, SUMIT, COPD, Type I DM (A1c 10.3 in june), Mitral regurg., Stage III CKD, HTN, HLD presents for abdominal pain and nausea found to be in DKA DKA unclear what set this off, potentially pump failure; no clear signs of infection based on CXR, UA or on exam initial BSG 1065, AG 18, BHB 66, UA with ketones and glucose ABG reassuring with pH 7.4 and CO2 28 initial K 6 down to 4.1 on recheck, started supplementation w/ 20 meq K/L - DKA protocol enacted - consulted ICU - consulted Pharmacy - Q4BMP, Mg., Phos. - initial bolus of 2L LR and fluid at a rate of 250/hr. - A1c ordered HTN - continue Amlodipine - continue Metoprolol hypothyroidism - continue Levothyroxine MDD, SUMIT - continue Duloxetine, Quetiapine HLD - continue Atorvastatin - continue Fenofibrate Constipation - continue Miralax Reflux - continue Omeprazole, Famotidine Code: full Diet: NPO DVT: SCDs (2) GERD (gastroesophageal reflux disease): (3) Chronic constipation: (4) Anemia: (5) Major depressive disorder, recurrent, moderate: (6) SUMIT (generalized anxiety disorder): (7) Hypothyroidism: (8) Gastroparesis: (9) Albright's esophagus: (10) Mitral regurgitation: (11) Sleep apnea: (12) Stage III chronic kidney disease: (13) COPD (chronic obstructive pulmonary disease): (14) Hypertension: (15) Hypercholesterolemia: Admission and Anticipated Discharge Date Admission Date: January 02, 2021 Subjective No acute events overnight. Sleeping comfortably in bed this AM. Arousable to voice. She denies abdominal pain. Reports fatigue, attributes to poor sleep. Review of Systems Constitutional: as per Subjective / HPI Physical Exam Constitutional: WD/WN, vitals as above Respiratory: normal respiratory effort, lungs clear to auscultation Results & Data Results & Data ([facility]) Vital Signs (Past 12 Hours) Vital Signs Temp Pulse Pulse Resp BP Pulse Ox 01/03/21 07:44 36.3 C L 82 20 104/64 94 01/03/21 03:50 36.1 C L 81 16 108/72 93 01/03/21 01:22 83 01/02/21 22:18 36.7 C 79 18 129/75 94 (1) Hypothyroidism Hypothyroidism type: unspecified Qualified Code(s): E03.9 - Hypothyroidism, unspecified (2) Stage III chronic kidney disease Chronic kidney disease stage 3 subtype: unspecified whether 3a or 3b Qualified Code(s): N18.30 - Chronic kidney disease, stage 3 unspecified (3) Hypertension Hypertension type: essential hypertension Qualified Code(s): I10 - Essential (primary) hypertension
[2021-01-03 10:38] LABS: Calcium 8.8 mg/dl (8.5-10.1); Creatinine Clr Calc Pharmacy 44.1 ml/min; Est GFR (Non-African American) 36.2 ml/min; Potassium 5.3 mmol/L (3.5-5.1)
--- NOTE | 2021-01-03 10:40 | Pharmacy Report ---
Pharmacy Glycemic Short Note 2 - Date of Service January 03, 2021 - Glycemic Short BSG Results (Last 24 hours): 01/02/21 01/02/21 01/02/21 11:31 11:48 12:06 Glucose POC Glucose 169 H 168 H 221 H 01/02/21 01/02/21 01/02/21 12:11 13:02 14:10 Glucose 216 H POC Glucose 191 H 170 H 01/02/21 01/02/21 01/02/21 15:14 15:55 16:05 Glucose 115 H POC Glucose 135 H 101 H 01/02/21 01/02/21 01/02/21 16:35 17:38 20:23 Glucose POC Glucose 84 70 56 L* 01/02/21 01/02/21 01/02/21 20:24 20:52 20:52 Glucose 62 L POC Glucose 63 L* 65 L* 01/02/21 01/02/21 01/03/21 20:54 21:19 00:10 Glucose POC Glucose 61 L* 84 50 L* 01/03/21 01/03/21 01/03/21 00:12 00:41 00:43 Glucose POC Glucose 54 L* 63 L* 66 L* 01/03/21 01/03/21 01/03/21 01:05 03:54 07:32 Glucose POC Glucose 142 H 120 H 188 H OUTPATIENT ANTIDIABETIC REGIMEN: * Levemir 35 units Q HS * Novolog CF 28; CR 5 * A1c = 10.8% 01/01/21 ASSESSMENT: 01/03: * Patient received 40 units of basal insulin and 8 units of bolus in addition to the IV regular insulin that was discontinued last evening. * Last night patient was hypoglycemic most likely due to the basal 40 units she received in the AM and the Novolog 7 units ordered by provider at dinner time. * Basal insulin reduced by 50% today AM. Fasting BSG elevated up to 188 mg/dl today. Novolog parameters tightened. 01/02/21: * Type 1 diabetic admitted for NVD x 3 days, severe hyperglycemia but only mild- moderate DKA per labs due to compensation, hyperkalemia, TEOFILO * Initial labs: GLU 1067, AG 17, Bicarb 22, BOHB 66.92, arterial pH 7.4, Na 119 (willem Na ~139), calc serum osmo < 320 * IV fluid resuscitation and IV insulin infusion per protocol initiated * This AM AG acidosis has resolved, pt mentating clearly and requesting a diet. * Plan to give Levemir dose x 1 this AM, to allow for transition off the insulin drip today. IV fluids containing dextrose still infusion however diet has been advanced to Clears. Would recommend removing dextrose from maint IVFs to allow for easier transition off drip. PLAN FOR INPATIENT GLYCEMIC CONTROL: * Basal insulin * Levemir 20 units SQ daily * Bolus insulin * Novolog ACHS * Correction factor: 20 * Nutritional / Prandial insulin per carb ratio of 1 unit per 6 grams CHO consumed PLAN FOR DISCHARGE: * HbA1c = 10.8% * TBD
--- NOTE | 2021-01-03 13:43 | Discharge Summary ---
Date of Service January 03, 2021 Admission HPI Per Admitting Provider Chiquis Isabel is a 55-year-old female with a past medical history of GERD, constipation, anemia, MDD, SUMIT, COPD, DM type I (last A1c 10.3 June), Mitral regurg., CKD III, HTN, and HLD here after feeling weak, vomiting and with abdominal pain since Thursday. She initially attributed her symptoms to being out in the heat. She was not able to check her blood sugars since Thursday but states that her blood sugars have been between 120-160 prior to this. She has a insulin pump and thought that this would take care of her blood sugar. She has not been able to keep any food down since this started and estimates that she has vomited 20 times. She is feeling lightheaded and has fallen multiple times over the last week. Her last A1C was 10.3 in June. She has had blood in her stool that she attributes to hemorrhoids. She also notes that she has palpitation with activity along with lightheadedness that she attributes to not eating well. ED course: - insulin drip started Admission Exam Per Admitting Provider Constitutional: cooperative; no acute distress Eyes: PERRL, conjunctivae normal, anicteric sclerae ENMT: external ear and nose normal, oropharynx normal Neck: normal visual inspection Respiratory: normal respiratory effort; no respiratory distress Auscultation: lungs clear to auscultation bilaterally and + bronchovesicular breath sounds Cardiovascular: RRR, no murmur, no edema Gastrointestinal (Abdomen): - epigastric tenderness Musculoskeletal: - left BKA Skin: no rashes, warm and dry Neurologic: no focal motor deficits Psychiatric: Orientation: alert and oriented x 3 Principal Diagnosis Diabetic Ketoacidosis Discharge Exam Constitutional WD/WN, vitals as above Respiratory normal respiratory effort, lungs clear to auscultation Cardiovascular RRR, no murmur, no edema Extremities: no pedal edema Gastrointestinal (Abdomen) normal bowel sounds, soft, nontender, no hepatosplenomegaly Discharge Data Allergies Allergy/AdvReac Type Severity Reaction Status Date / Time codeine Allergy Intermediate HIVES Verified 01/01/21 21:38 doxycycline Allergy Intermediate GI UPSET Verified 01/01/21 21:38 and hives fluconazole Allergy Intermediate HIVES, Verified 01/01/21 21:38 ITCHING, N/V SHORT OF BREATH latex Allergy Intermediate RASH, Verified 01/01/21 21:38 PAINFUL TO THE TOUCH Penicillins Allergy Unknown HAD Verified 01/01/21 21:38 ROCEPHIN IN PAST hydromorphone AdvReac Intermediate SEVERE Verified 01/01/21 21:38 HEADACHE, NAUSEA AND VOMITING, hives morphine AdvReac Intermediate SEVERE Verified 01/01/21 21:38 N/V, LUNDBERG. PT OK W/ ONE TIME DOSES Consultations 01/01/21 23:21 ED Decision to Admit Stat 01/02/21 02:32 Consult Pathologist Assistant Routine Hospital Course (1) DKA (diabetic ketoacidosis): DKA unclear what set this off; likely gastroenteritis prodrome vs. pump failure initial BSG 1065, AG 18, BHB 66, UA with ketones and glucose ABG reassuring with pH 7.4 and CO2 28 initial K 6 down to 4.1 on recheck, started supplementation w/ 20 meq K/L - DKA protocol enacted - consulted ICU - consulted Pharmacy - Q4BMP, Mg., Phos. - initial bolus of 2L LR and fluid at a rate of 250/hr. - A1c ordered: 10.8 - BSG at goal: pt switched to subQ insulin (40 u basal) HTN - continue Amlodipine - continue Metoprolol hypothyroidism - continue Levothyroxine MDD, SUMIT - continue Duloxetine, Quetiapine HLD - continue Atorvastatin - continue Fenofibrate Constipation - continue Miralax Reflux - continue Omeprazole, Famotidine Code: full Diet: NPO DVT: SCDs (2) GERD (gastroesophageal reflux disease): (3) Chronic constipation: (4) Anemia: (5) Major depressive disorder, recurrent, moderate: (6) SUMIT (generalized anxiety disorder): (7) Hypothyroidism: (8) Gastroparesis: (9) Albright's esophagus: (10) Mitral regurgitation: (11) Sleep apnea: (12) Stage III chronic kidney disease: (13) COPD (chronic obstructive pulmonary disease): (14) Hypertension: (15) Hypercholesterolemia: Total Time Total Time Spent Total Time Spent (In Minutes): >30 Discharge Plan Discharge Items Patient Disposition: Home - Self-Care Reason For Visit: DKA Discharge Diagnosis: Diabetic Ketoacidosis Acidosis Activity: Per Instructions section Non-emergency contact: Primary Care Provider Call non-emergency contact if: your pain is unusual for you and your pain is concerning for you Follow-up/Referrals: Tammy Henao MD [Primary Care Provider] - 01/16/21 2:00 pm Diet: Regular Addtl Attending Provider Instructions: You were admitted to the hospital for diabetic ketoacidosis. You were treated with fluids and insulin. A discharge summary will be sent to your primary care physician to ensure continuity of care. Please bring this discharge summary with you to your next office appointment so that your provider can review it at that time. Follow-up appointments: Make a follow-up appointment with your PCP within the next week. It is very important that you follow up with them shortly after discharge from the hospital. Keep all your follow-up appointments as already scheduled. If you cannot make an appointment, notify your provider. CONTACT YOUR PRIMARY CARE PROVIDER if you experience any of the following: extreme fatigue, fast deep breathing nausea and vomiting Difficulty following your treatment plan, or difficulty taking medications CALL 911 OR GO TO THE EMERGENCY DEPARTMENT if you experience any of the following: Sudden, severe abdominal pain or nausea/vomiting Severe chest pain, or chest pain that radiates (moves) to your jaw or arm Sudden, severe shortness of breath or difficulty breathing Thank you for allowing us to participate in your care. Pending Studies at Discharge: No Stand-Alone Forms: My [facility], Smoking Cessation Medications and DC Order Prescriptions: Continued aspirin [Adult Aspirin Regimen] 81 mg tablet,delayed release (DR/EC) 81 mg PO HS RF: 0 Belsomra 20 mg tablet 20 mg PO HS PRN (Reason: insomnia) 30 Days Qty: 30 RF: 2 duloxetine [Cymbalta] 60 mg capsule,delayed release(DR/EC) 60 mg PO QAM Qty: 30 RF: 2 duloxetine [Cymbalta] 30 mg capsule,delayed release(DR/EC) 30 mg PO QAM Qty: 30 RF: 2 quetiapine 300 mg tablet 450 mg PO HS Qty: 45 RF: 2 fenofibrate nanocrystallized [Tricor] 48 mg tablet 48 mg PO DAILY Qty: 90 RF: 3 levothyroxine 50 mcg tablet 50 mcg PO DAILY Qty: 90 RF: 3 metoprolol succinate 25 mg tablet extended release 24 hr 50 mg PO DAILY Qty: 180 RF: 3 famotidine [Pepcid] 40 mg tablet 40 mg PO HS Qty: 90 RF: 3 (DME) miscell[employer] medical supply [facility] See Dose Instructions .ROUTE .MEDSUPPLY Qty: 2 RF: 5 amlodipine 2.5 mg tablet 2.5 mg PO DAILY Qty: 90 RF: 3 lisinopril 10 mg tablet 10 mg PO DAILY Qty: 90 RF: 3 (DME) Ketostix Strip See Dose Instructions .ROUTE .MEDSUPPLY Qty: 25 RF: 2 (DME) Omnipod Insulin Refill Cartridge See Rx Instructions .ROUTE .MEDSUPPLY Qty: 90 RF: 1 (DME) Omnipod Dash 5 Pack Pod Cartridge See Rx Instructions .ROUTE .MEDSUPPLY Qty: 30 RF: 5 Novolog U-100 Insulin aspart 100 unit/mL solution See Rx Instructions continuous subcutaneous infusion .COMPLEX Qty: 90 RF: 3 atorvastatin 20 mg tablet 20 mg PO DAILY Qty: 90 RF: 3 (DME) FreeStyle Test Strip See Rx Instructions .ROUTE .MEDSUPPLY Qty: 300 RF: 3 (DME) insulin syringe-needle U-100 [BD Insulin Syringe Ultra-Fine] 0.5 mL 31 gauge x 5/16" syringe See Rx Instructions .ROUTE .MEDSUPPLY Qty: 90 RF: 1 Nucynta 100 mg tablet 100 mg PO .COMPLEX Qty: 120 RF: 0 esomeprazole magnesium 40 mg capsule,delayed release(DR/EC) 40 mg PO DAILY Qty: 90 RF: 3 polyethylene glycol 3350 [Miralax] 17 gram powder in packet 17 gm PO DAILY PRN (Reason: Constipation) Qty: 14 RF: 4 insulin detemir U-100 100 unit/mL (3 mL) insulin pen 35 unit subcut DAILY RF: 0 (DME) Assure ID Insulin Safety 0.5 mL 31 gauge x 15/64" syringe See Rx Instructions .Route Qty: 100 RF: 3 (DME) Omnipod Insulin Management misc See Dose Instructions .ROUTE .MEDSUPPLY Qty: 1 RF: 0 (DME) blood-glucose meter [OneTouch UltraMini] kit See Dose Instructions .ROUTE .MEDSUPPLY Qty: 1 RF: 0 sucralfate [Carafate] 1 gram tablet 1 g PO TID PRN (Reason: .) RF: 0 (DME) pen needle, diabetic [BD Ultra-Fine Mini Pen Needle] 31 gauge x 3/16" needle See Rx Instructions .Route Qty: 100 RF: 3 cholecalciferol (vitamin D3) 2,000 unit capsule 2,000 units PO QAM RF: 0 Discharge Orders: Discharge Order (Routine); Ordered 01/03/21 Ordered By: Walt Bryan Admission Data Admit Date/Time: 01/02/21 00:28 Attending Provider: Michael Casas Admit Provider: Con Marie Primary Care Provider: Tammy Henao Other Providers: Raymond Liriano ; Serafin Marquez Other Interventions: Discharge Summary Assessment (RN) Last Done: 01/03/21 14:38 Supervising Physician Co-Signing Physician Notes I personally examined the patient and verified all yancey points of history and exam, discussed case, and agree with decision making with Dr Bryan. Feeling better. Wants to go home. Extensive discussion on carb matching and postprandial glucose readings to "grade her work" expressed understanding of this after extensive discussion/questions and answers. Vitals noted, in general she is awake and alert pleasant no distress. HEENT normocephalic atraumatic mucous membranes moist. Breathing unlabored no accessory muscle use good effort. Skin shows no rashes no pallor or icterus. Neuro without focal deficits. DKAlikely related to viral gastroenteritisboth viral GE and DKA have resolved. Safe/stable for home. Uncontrolled diabetesreiterated "the basics" (hyperglycemia leading to progressive microvascular ischemia). Discussed that most frequently people get into trouble from not matching the carbs to eat with enough insulinand that generally the best way to figure this out is checking postprandial glucoses. We discussed this at length. She will start doing this, and trying to bolus more appropriately. Outpatient follow-up in this regard. Of note, she was not sure where her pump was after she had come to the hospital, and also was not 100% sure if it was workingshe declined having anybody bring it in so that we could watch her with her pump restarted prior to discharge, so we discussed very directly that if she could not find her pump almost immediately on returning home, or if she started her pump and saw sugars rising suggesting it was not functioning, that she would need to come back to the hospital right away. Otherwise as above Resident Activity Tracking Resident Involvement: Resident Care Provided Care Provided: Adult Hospital Medicine
--- NOTE | 2021-01-03 19:11 | Billing Data ---
Date of Service January 03, 2021 Coding Level of Care Code D/C DAY MANAGEMENT >30 MINS
== END 2021-01-03 15:21 | disposition home or self-care (01) | DRG 638 ==
LOC: ED 19:48 → INTOOBSV 01-02 00:28 → SUATTDRO 01-02 00:28 → OBSVTOIN 01-02 00:28 → 1E 01-02 00:28 → 2N 01-02 15:32
DX: K31.84 Gastroparesis; I12.9 Hypertensive chronic kidney disease with stage 1 through stage 4 chronic kidney disease, or unspecified chronic kidney disease; Z79.82 Long term (current) use of aspirin; E10.43 Type 1 diabetes mellitus with diabetic autonomic (poly)neuropathy; I34.0 Nonrheumatic mitral (valve) insufficiency; Z79.899 Other long term (current) drug therapy; D50.9 Iron deficiency anemia, unspecified; E78.5 Hyperlipidemia, unspecified; Z91.040 Latex allergy status; N17.9 Acute kidney failure, unspecified; K21.9 Gastro-esophageal reflux disease without esophagitis; E10.10 Type 1 diabetes mellitus with ketoacidosis without coma; E03.9 Hypothyroidism, unspecified; J44.9 Chronic obstructive pulmonary disease, unspecified; N18.30 Chronic kidney disease, stage 3 unspecified; G47.30 Sleep apnea, unspecified; Z89.619 Acquired absence of unspecified leg above knee; Z79.4 Long term (current) use of insulin; Z88.5 Allergy status to narcotic agent; Z88.0 Allergy status to penicillin; E10.22 Type 1 diabetes mellitus with diabetic chronic kidney disease; K59.09 Other constipation